=== PATIENT | male | born 1960 | race Caucasian/White ===

== ENCOUNTER → 2017-11-30 15:40 | Outpatient (POV) | payer BC, SELFPAY ==
[2017-11-30 15:47] VITALS: BP 166/94; PULSE 91; RESP 16; O2SAT 96; BMI 27.1
--- NOTE | 2017-11-30 15:57 | HMH.PAINSOAP ---
[facility] Pain Management SOAP Note Subjective:: Patient is a pleasant 57-year-old male who presents today to follow-up after left SI joint injection. Patient states that he had excellent relief up to 90% for a month. Though patient may want to do another injection he finds it cost prohibitive at this time. Patient has been taking tramadol 50 mg 1 p.o. 3 times daily as needed and gabapentin 300 mg 1 p.o. twice daily from his primary care physician. He states that this medication is done really well for him and would like to continue with it. 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 Patient states he does well up until about 8 hour arun and then he becomes very sore afterwards. Patient finds some relief with standing after long periods of sitting. Patient rates his pain a 7 out of 10 today. Patient and I discussed continuing his gabapentin at 300 mg but increasing it to 3 times a day. We also discussed his tramadol 50 mg and decreasing it to twice daily. Patient is satisfied with this. More [id number] reviewed and appropriate. Objective:: Physical Exam General: Alert and oriented x3, no acute distress, pleasant and cooperative, [on room air] Lungs: Resps E/U, Symmetrical chest expansion Musculoskeletal: Flexion and extension of lumbar spine somewhat guarded secondary to pain, deep tendon reflexes normal, strength in upper and lower extremities [5/5], right antalgic gait noted, positive Russ's test on left side. Neurological: speech clear, resident programs assistant equal, no gross sensory deficits Assessment:: Left sided sacroiliitis Plan:: We will give him prescriptions for tramadol 50 mg 1 p.o. twice daily and for gabapentin 300 mg [address] Dickinson reviewed this and agrees. Patient's More reviewed and appropriate. I will see the patient back in 2 months to determine if this regimen is helping him. Patient was instructed to call the office if he needs us before that. Patient has been prescribed a controlled substance after being counseled on the medication, medication safety, and possible side effects. MORE report has been obtained and reviewed prior to prescription and found to be appropriate. Opioid contract was reviewed and signed by the patient, and that they have agreed to all of the terms set forth by our compliance program. This note was dictated using voice recognition software and may include errors or omissions
--- NOTE | 2017-11-30 16:00 | P.CONS_ITS ---
[facility] Pain Management SOAP Note Subjective:: Patient is a pleasant 57-year-old male who presents today to follow-up after left SI joint injection. Patient states that he had excellent relief up to 90% for a month. Though patient may want to do another injection he finds it cost prohibitive at this time. Patient has been taking tramadol 50 mg 1 p.o. 3 times daily as needed and gabapentin 300 mg 1 p.o. twice daily from his primary care physician. He states that this medication is done really well for him and would like to continue with it. 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 Patient states he does well up until about 8 hour arun and then he becomes very sore afterwards. Patient finds some relief with standing after long periods of sitting. Patient rates his pain a 7 out of 10 today. Patient and I discussed continuing his gabapentin at 300 mg but increasing it to 3 times a day. We also discussed his tramadol 50 mg and decreasing it to twice daily. Patient is satisfied with this. More [id number] reviewed and appropriate. Objective:: Physical Exam General: Alert and oriented x3, no acute distress, pleasant and cooperative, [ on room air] Lungs: Resps E/U, Symmetrical chest expansion Musculoskeletal: Flexion and extension of lumbar spine somewhat guarded secondary to pain, deep tendon reflexes normal, strength in upper and lower extremities [5/5], right antalgic gait noted, positive Russ's test on left side. Neurological: speech clear, pediatric hospitalist equal, no gross sensory deficits Assessment:: Left sided sacroiliitis Plan:: We will give him prescriptions for tramadol 50 mg 1 p.o. twice daily and for gabapentin 300 mg [address] Dickinson reviewed this and agrees. Patient's More reviewed and appropriate. I will see the patient back in 2 months to determine if this regimen is helping him. Patient was instructed to call the office if he needs us before that. Patient has been prescribed a controlled substance after being counseled on the medication, medication safety, and possible side effects. MORE report has been obtained and reviewed prior to prescription and found to be appropriate. Opioid contract was reviewed and signed by the patient, and that they have agreed to all of the terms set forth by our compliance program. This note was dictated using voice recognition software and may include errors or omissions
== END ==
PROVIDERS: Family Provider Family Medicine; PCP Family Medicine; Visit Provider Clinical Nurse Specialist Family Health
DX: M54.16 Radiculopathy, lumbar region (principal)
CPT/HCPCS: 99212

== ENCOUNTER → 2018-02-01 14:42 | Outpatient (POV) | payer BC, SELFPAY ==
[2018-02-01 15:32] VITALS: BP 170/90; PULSE 93; BMI 34.9
--- NOTE | 2018-02-01 15:43 | HMH.PAINSOAP ---
[facility] Pain Management SOAP Note Subjective:: Patient is a pleasant 57-year-old white male who presents today for follow-up for medication refills. Patient is currently on the medication regimen of tramadol 50 mg 1 p.o. twice daily and gabapentin milligrams 1 p.o. 3 times a day. Patient states he is doing excellent. Patient states he has pain is a 0 out of 10 today. 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 Patient is very happy with his current regimen. Patient has had left SI joint injections in the past with some relief however this seems to take care of all of his pain. Patient's MORE #[id number] reviewed and appropriate. We will refill the patient today. ROS General: no recent weight change, no fever, no sleep disturbances Respiratory: no cough, no shortness of air, no recurring pulmonary infections Cardiovascular/Peripheral Vascular: No chest pain, No palpitations, no edema, no shortness of breath. Gastrointestinal: no incontinence, normal bowel movements reported Genitourinary: no incontinence Musculoskeletal: Left SI joint pain Psychiatric: normal mood/ affect Neurological: [denies weakness in extremities], [denies balance issues] Objective:: Physical Exam General: Alert and oriented x3, no acute distress, pleasant and cooperative, [on room air] Lungs: Resps E/U, Symmetrical chest expansion, Eyes: PERRL Musculoskeletal: Flexion and extension of lumbar spine somewhat guarded secondary to pain, deep tendon reflexes normal, strength in upper and lower extremities [5/5], slightly antalgic gait noted Neurological: speech clear, senior software test engineer equal, no gross sensory deficits Assessment:: Sacroiliitis of the left side Plan:: We will continue with tramadol 50 mg 1 p.o. twice daily and gabapentin 300 mg 1 p.o. q. 3 times daily given the efficacy of this regimen. Patient is not in need of refills at this time. Patient's MORE is appropriate. Dr. Dickinson is reviewed and agrees with this plan of care we will continue to see the patient on a three-month basis. Patient was instructed to call the office if he needs us before that This note was dictated using voice recognition software and may contain errors or omissions
--- NOTE | 2018-02-01 15:47 | P.CONS_ITS ---
[facility] Pain Management SOAP Note Subjective:: Patient is a pleasant 57-year-old white male who presents today for follow-up for medication refills. Patient is currently on the medication regimen of tramadol 50 mg 1 p.o. twice daily and gabapentin milligrams 1 p.o. 3 times a day. Patient states he is doing excellent. Patient states he has pain is a 0 out of 10 today. 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 Patient is very happy with his current regimen. Patient has had left SI joint injections in the past with some relief however this seems to take care of all of his pain. Patient's MORE #[id number] reviewed and appropriate. We will refill the patient today. ROS General: no recent weight change, no fever, no sleep disturbances Respiratory: no cough, no shortness of air, no recurring pulmonary infections Cardiovascular/Peripheral Vascular: No chest pain, No palpitations, no edema, no shortness of breath. Gastrointestinal: no incontinence, normal bowel movements reported Genitourinary: no incontinence Musculoskeletal: Left SI joint pain Psychiatric: normal mood/ affect Neurological: [denies weakness in extremities], [denies balance issues] Objective:: Physical Exam General: Alert and oriented x3, no acute distress, pleasant and cooperative, [ on room air] Lungs: Resps E/U, Symmetrical chest expansion, Eyes: PERRL Musculoskeletal: Flexion and extension of lumbar spine somewhat guarded secondary to pain, deep tendon reflexes normal, strength in upper and lower extremities [5/5], slightly antalgic gait noted Neurological: speech clear, assignment desk editor equal, no gross sensory deficits Assessment:: Sacroiliitis of the left side Plan:: We will continue with tramadol 50 mg 1 p.o. twice daily and gabapentin 300 mg 1 p.o. q. 3 times daily given the efficacy of this regimen. Patient is not in need of refills at this time. Patient's MORE is appropriate. Dr. Dickinson is reviewed and agrees with this plan of care we will continue to see the patient on a three-month basis. Patient was instructed to call the office if he needs us before that This note was dictated using voice recognition software and may contain errors or omissions
== END ==
PROVIDERS: Family Provider Family Medicine; PCP Family Medicine; Visit Provider Clinical Nurse Specialist Family Health
DX: M46.1 Sacroiliitis, not elsewhere classified (principal)
CPT/HCPCS: 99212

== ENCOUNTER → 2018-04-05 12:47 | Outpatient (POV) | payer BC, SELFPAY ==
[2018-04-05 13:14] VITALS: BP 162/87; PULSE 88; RESP 18; O2SAT 99; BMI 33.1
--- NOTE | 2018-04-05 13:22 | HMH.PAINSOAP ---
[facility] Pain Management SOAP Note Subjective:: Patient is a pleasant 57-year-old white male who presents today for follow-up for medication refills. Patient is currently on a medication regimen of tramadol 50 mg 1 p.o. twice daily and gabapentin 300 mg 1 p.o. 3 times daily. Patient is being treated for pain secondary to sacroiliitis. Patient states he is doing well and has no side effects. Patient is currently still working full-time. Patient's MORE #[id number] reviewed and appropriate. Patient is not in need of refills today. ROS General: no recent weight change, no fever, no sleep disturbances Respiratory: no cough, no shortness of air, no recurring pulmonary infections Cardiovascular/Peripheral Vascular: No chest pain, No palpitations, no edema, no shortness of breath. Gastrointestinal: no incontinence, normal bowel movements reported Genitourinary: no incontinence Musculoskeletal: SI joint pain Psychiatric: normal mood/ affect Neurological: [denies weakness in extremities], [denies balance issues] Objective:: Physical Exam General: Alert and oriented x3, no acute distress, pleasant and cooperative, [on room air] Lungs: Resps E/U, Symmetrical chest expansion, Eyes: PERRL Musculoskeletal: Flexion and extension of the lumbar spine somewhat guarded secondary to pain, deep tendon reflexes normal, strength in upper and lower extremities [5/5], slightly antalgic gait noted Neurological: speech clear, claims clerk equal, no gross sensory deficits Assessment:: Sacroiliitis Plan:: We will refill this patient when he is due for refills. Patient is going to continue his current regimen. I will follow-up with him in 3 months. Patient's been instructed to call the office if he has any issues prior to his next appointment. This note was dictated using voice recognition software and may contain errors or omissions
--- NOTE | 2018-04-05 13:25 | P.CONS_ITS ---
[facility] Pain Management SOAP Note Subjective:: Patient is a pleasant 57-year-old white male who presents today for follow-up for medication refills. Patient is currently on a medication regimen of tramadol 50 mg 1 p.o. twice daily and gabapentin 300 mg 1 p.o. 3 times daily. Patient is being treated for pain secondary to sacroiliitis. Patient states he is doing well and has no side effects. Patient is currently still working full- time. Patient's MORE #[id number] reviewed and appropriate. Patient is not in need of refills today. ROS General: no recent weight change, no fever, no sleep disturbances Respiratory: no cough, no shortness of air, no recurring pulmonary infections Cardiovascular/Peripheral Vascular: No chest pain, No palpitations, no edema, no shortness of breath. Gastrointestinal: no incontinence, normal bowel movements reported Genitourinary: no incontinence Musculoskeletal: SI joint pain Psychiatric: normal mood/ affect Neurological: [denies weakness in extremities], [denies balance issues] Objective:: Physical Exam General: Alert and oriented x3, no acute distress, pleasant and cooperative, [ on room air] Lungs: Resps E/U, Symmetrical chest expansion, Eyes: PERRL Musculoskeletal: Flexion and extension of the lumbar spine somewhat guarded secondary to pain, deep tendon reflexes normal, strength in upper and lower extremities [5/5], slightly antalgic gait noted Neurological: speech clear, breast surgeon equal, no gross sensory deficits Assessment:: Sacroiliitis Plan:: We will refill this patient when he is due for refills. Patient is going to continue his current regimen. I will follow-up with him in 3 months. Patient' s been instructed to call the office if he has any issues prior to his next appointment. This note was dictated using voice recognition software and may contain errors or omissions
== END ==
PROVIDERS: Family Provider Family Medicine; PCP Family Medicine; Visit Provider Clinical Nurse Specialist Family Health
DX: M46.1 Sacroiliitis, not elsewhere classified (principal)
CPT/HCPCS: 99212

== ENCOUNTER → 2018-04-28 10:03 | Outpatient (CLI) | payer BC, SELFPAY ==
--- NOTE | 2018-04-28 10:07 | CT_ITS ---
CT head/brain wo con HISTORY: Headache, prior injury ORDERING PHYSICIAN: Adrian Cornell MD PATIENT AGE: 57 years COMPARISON: None TECHNIQUE: Axial images obtained without contrast. Brain and bone windows reviewed. All CT scans at the facility use one or more dose reduction, viz: automated exposure control; ma/kV adjustment per patient size (including targeted exams where dose is matched to indication; i.e. head); or iterative reconstruction technique. FINDINGS: No midline shift, mass effect, intracranial hemorrhage, hydrocephalus, or extra-axial fluid collection is evident. The calvarium has an unremarkable appearance. No mastoid effusion. No sinus air-fluid levels.. IMPRESSION: Negative CT head without contrast. No acute finding
--- NOTE | 2018-04-28 10:07 | CT_ITS ---
CT CERVICAL SPINE WITHOUT CONTRAST CT RECONSTRUCTIONS HISTORY:Neck pain following injury ORDERING PHYSICIAN: Adrian Cornell MD PATIENT AGE: 57 years COMPARISON: None Technique: All CT scans at the facility use one or more dose reduction, viz: automated exposure control; ma/kV adjustment per patient size (including targeted exams where dose is matched to indication; i.e. head); or iterative reconstruction technique PROCEDURE: Axial spiral CT scanning performed of the cervical spine beginning at the base of the skull and continuing to the upper T-spine. 3-D multiplanar reconstruction with 3-D manipulation of volumetric data set in image rendering was completed by the radiologist and/or technologist with the supervision of the radiologist on independent workstation. FINDINGS: There is normal alignment. No fracture or dislocation is evident. There is multilevel cervical spondylosis with degenerative disc disease along facet and uncovertebral hypertrophy. C2-C3: Minimal central disc protrusion. C3-C4: Mild degenerative disc disease with mild right-sided foraminal narrowing from facet and uncovertebral hypertrophy. C4-C5: Severe right-sided foraminal narrowing from uncovertebral and facet hypertrophy. Moderate to severe hypertrophy of the facet at this region on the right. C5-C6: Degenerative disc disease with bulging disc and posterior osteophytes slightly eccentric toward the right with mild narrowing of the canal along with moderate bilateral foraminal narrowing from uncovertebral hypertrophy and facet hypertrophy on the right. C6-C7: Mild degenerative disc disease. C7-T1: Unremarkable Lung apices are clear. No prevertebral soft tissue swelling. IMPRESSION: 1. No acute fracture 2. Multilevel cervical spondylosis with degenerative disc disease and facet and uncovertebral hypertrophy with foraminal narrowing as detailed above. Please see above for detailed description. Borderline canal stenosis at C5-C6
== END ==
PROVIDERS: Family Provider Family Medicine; PCP Family Medicine; Visit Provider Family Medicine
DX: S06.0X0A Concussion without loss of consciousness, initial encounter (principal); M54.2 Cervicalgia
CPT/HCPCS: 70450; 72125

== ENCOUNTER → 2018-07-05 15:11 | Outpatient (POV) | payer BC, SELFPAY ==
[2018-07-05 15:23] VITALS: BP 133/80; PULSE 97; RESP 18; O2SAT 97; BMI 30.7
--- NOTE | 2018-07-05 15:48 | HMH.PAINSOAP ---
[facility] Pain Management SOAP Note Subjective:: Patient is a pleasant 58-year-old white male who presents today for follow-up. Patient is doing well on his current medication regimen of tramadol 50 mg 1 p.o. twice daily and gabapentin 300 mg 1 p.o. 3 times daily. He is being treated for pain secondary to sacroiliitis. Patient is working full-time. Patient states that when he works a 12 hour shift he does feel like he could benefit from 1 more tramadol and. I believe that this is reasonable. Patient's MORE #[id number] reviewed and appropriate. Patient denies any side effects to his medication. ROS General: no recent weight change, no fever, no sleep disturbances Respiratory: no cough, no shortness of air, no recurring pulmonary infections Cardiovascular/Peripheral Vascular: No chest pain, No palpitations, no edema, no shortness of breath. Gastrointestinal: no incontinence, normal bowel movements reported Genitourinary: no incontinence Musculoskeletal: Back pain, SI joint pain Psychiatric: normal mood/ affect Neurological: [denies weakness in extremities], [denies balance issues] Objective:: Physical Exam General: Alert and oriented x3, no acute distress, pleasant and cooperative, [on room air] Lungs: Resps E/U, Symmetrical chest expansion, Eyes: PERRL Musculoskeletal: Flexion and extension of lumbar spine somewhat guarded secondary to pain, deep tendon reflexes normal, strength in upper and lower extremities [5/5], slightly antalgic gait noted Neurological: speech clear, water resource project manager equal, no gross sensory deficits Assessment:: Sacroiliitis Plan:: We will refill the patient's gabapentin 300 mg 1 tab p.o. 3 times daily and increase his tramadol to 50 mg 1 tab p.o. 3 times daily. 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 We will see the patient back in 3 months. Patient has been instructed to call the office if he has any issues prior to his next appointment. Dr. Dickinson has reviewed this chart and agrees with this plan of care. This note was dictated using voice recognition software and may contain errors or omissions
--- NOTE | 2018-07-05 15:52 | P.CONS_ITS ---
[facility] Pain Management SOAP Note Subjective:: Patient is a pleasant 58-year-old white male who presents today for follow-up. Patient is doing well on his current medication regimen of tramadol 50 mg 1 p.o. twice daily and gabapentin 300 mg 1 p.o. 3 times daily. He is being treated for pain secondary to sacroiliitis. Patient is working full-time. Patient states that when he works a 12 hour shift he does feel like he could benefit from 1 more tramadol and. I believe that this is reasonable. Patient's MORE #[id number] reviewed and appropriate. Patient denies any side effects to his medication. ROS General: no recent weight change, no fever, no sleep disturbances Respiratory: no cough, no shortness of air, no recurring pulmonary infections Cardiovascular/Peripheral Vascular: No chest pain, No palpitations, no edema, no shortness of breath. Gastrointestinal: no incontinence, normal bowel movements reported Genitourinary: no incontinence Musculoskeletal: Back pain, SI joint pain Psychiatric: normal mood/ affect Neurological: [denies weakness in extremities], [denies balance issues] Objective:: Physical Exam General: Alert and oriented x3, no acute distress, pleasant and cooperative, [on room air] Lungs: Resps E/U, Symmetrical chest expansion, Eyes: PERRL Musculoskeletal: Flexion and extension of lumbar spine somewhat guarded secondary to pain, deep tendon reflexes normal, strength in upper and lower extremities [5/5], slightly antalgic gait noted Neurological: speech clear, multiple knife edge trimmer operator equal, no gross sensory deficits Assessment:: Sacroiliitis Plan:: We will refill the patient's gabapentin 300 mg 1 tab p.o. 3 times daily and increase his tramadol to 50 mg 1 tab p.o. 3 times daily. 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 We will see the patient back in 3 months. Patient has been instructed to call the office if he has any issues prior to his next appointment. Dr. Dickinson has reviewed this chart and agrees with this plan of care. This note was dictated using voice recognition software and may contain errors or omissions
--- NOTE | 2018-10-14 11:20 | PC.PHONENOTE ---
CALLED IN RX FOR GABAPENTIN 300MG TID WITH 2 REFILLS TO [facility]
== END ==
PROVIDERS: Family Provider Family Medicine; PCP Family Medicine; Visit Provider Clinical Nurse Specialist Family Health
DX: M46.1 Sacroiliitis, not elsewhere classified (principal)
CPT/HCPCS: 99213

== ENCOUNTER → 2018-10-25 10:41 | Outpatient (POV) | payer BC, SELFPAY ==
[2018-10-25 10:56] VITALS: BP 124/93; PULSE 92; RESP 18; O2SAT 98; BMI 32.6
--- NOTE | 2018-10-25 11:17 | P.CONS_ITS ---
[facility] Pain Management SOAP Note Subjective:: Patient is a pleasant 58-year-old white male who presents today for follow-up. Patient is doing well on tramadol 50 mg 1 p.o. 3 times daily and gabapentin 300 mg 1 p.o. 3 times daily however he has not been able to get his full medication due to insurance and pharmacy issues. Patient currently rates his pain a 2 out of 10. He states his worst pain is about a 6 out of 10 when he is working a 12- hour shift. Coleman reviewed and appropriate. Patient denies side effects to his medication. ROS General: no recent weight change, no fever, no sleep disturbances Respiratory: no cough, no shortness of air, no recurring pulmonary infections Cardiovascular/Peripheral Vascular: No chest pain, No palpitations, no edema, no shortness of breath. Gastrointestinal: no incontinence, normal bowel movements reported Genitourinary: no incontinence Musculoskeletal: Back pain, SI joint pain Psychiatric: normal mood/ affect Neurological: [denies weakness in extremities], [denies balance issues] Objective:: Physical Exam General: Alert and oriented x3, no acute distress, pleasant and cooperative, [on room air] Lungs: Resps E/U, Symmetrical chest expansion, Eyes: PERRL Musculoskeletal: Flexion and extension of lumbar spine somewhat guarded secondary to pain, deep tendon reflexes normal, strength in upper and lower extremities [5/5], antalgic gait noted Neurological: speech clear, title insurance examiner equal, no gross sensory deficits Assessment:: Sacroiliitis Plan:: We will continues tramadol 50 mg 1 tab p.o. 3 times daily and gabapentin 300 mg 1 tab p.o. 3 times daily we will give him 2 months worth of medication and see him back in 2 months. Patient is going to not take medication during the weekends and take up to 4 tramadol a day on his 12-hour shift days. Dr. Dickinson has reviewed his chart and agrees with this plan of care This note was dictated using voice recognition software and may contain errors or omissions
== END ==
PROVIDERS: PCP Family Medicine; Visit Provider Clinical Nurse Specialist Family Health
DX: M46.1 Sacroiliitis, not elsewhere classified (principal)
CPT/HCPCS: 99213

== ENCOUNTER → 2018-12-20 15:42 | Outpatient (POV) | payer BC, SELFPAY ==
[2018-12-20 15:30] VITALS: BP 152/92; PULSE 101; RESP 18; O2SAT 98; BMI 34.2
--- NOTE | 2018-12-21 08:40 | P.CONS_ITS ---
[facility] Pain Management SOAP Note Subjective:: Patient is a pleasant 58-year-old white male who presents today for follow-up. Patient is currently doing well on tramadol 50 mg 1 p.o. 3 times daily and gabapentin 300 mg 1 p.o. 3 times daily. Patient has been able to get his full amount of medication and is doing much better. He rates his pain a 3 out of 10. Patient states his worst pain is on days that he works 12-hour shifts on his feet. Patient denies side effects to his medication and states it helps up to 80%. MORE reviewed and appropriate. ROS General: no recent weight change, no fever, no sleep disturbances Respiratory: no cough, no shortness of air, no recurring pulmonary infections Cardiovascular/Peripheral Vascular: No chest pain, No palpitations, no edema, no shortness of breath. Gastrointestinal: no incontinence, normal bowel movements reported Genitourinary: no incontinence Musculoskeletal: Back pain, SI joint pain Psychiatric: normal mood/ affect Neurological: [denies weakness in extremities], [denies balance issues] Objective:: Physical Exam General: Alert and oriented x3, no acute distress, pleasant and cooperative, [on room air] Lungs: Resps E/U, Symmetrical chest expansion, Eyes: PERRL Musculoskeletal: Flexion and extension of lumbar spine somewhat guarded seco ndary to pain, deep tendon reflexes normal, strength in upper and lower extremities [5/5], slightly antalgic gait noted Neurological: speech clear, hospital liaison equal, no gross sensory deficits Assessment:: Sacroiliitis, back pain Plan:: We will continue the patient's tramadol 50 mg 1 tab p.o. 3 times daily and gabapentin 300 mg 1 tab p.o. 3 times daily we will give him 2 months worth of medication and see him back in 2 months. I will follow-up with the patient at this time. He has been instructed to call the office if he has any issues prior to his next appointment. Dr. Dickinson has reviewed this note and agrees with this plan of care. This note was dictated using voice recognition software and may contain errors or omissions
== END ==
PROVIDERS: PCP Family Medicine; Visit Provider Clinical Nurse Specialist Family Health
DX: M46.1 Sacroiliitis, not elsewhere classified (principal); M54.9 Dorsalgia, unspecified
CPT/HCPCS: 99213

== ENCOUNTER → 2019-04-11 15:10 | Outpatient (POV) | payer BC, SELFPAY ==
--- NOTE | 2019-04-11 15:42 | P.CONS_ITS ---
[facility] Pain Management SOAP Note Subjective:: Patient is a pleasant 58-year-old white male who presents today for medication refills he is currently on tramadol 50 mg 1 p.o. 3 times daily and gabapentin 300 mg 1 p.o. 3 times daily. He has been doing all right with this. He rates his pain a 4 out of 10. He does work 12-hour shifts on his feet he denies side effects the medication. States it helps up to 80%. [facility] #[id number] reviewed and appropriate. ROS General: no recent weight change, no fever, no sleep disturbances Respiratory: no cough, no shortness of air, no recurring pulmonary infections Cardiovascular/Peripheral Vascular: No chest pain, No palpitations, no edema, no shortness of breath. Gastrointestinal: no incontinence, normal bowel movements reported Genitourinary: no incontinence Musculoskeletal: Back pain, SI joint pain Psychiatric: normal mood/ affect Neurological: [denies weakness in extremities], [denies balance issues] Objective:: Physical Exam General: Alert and oriented x3, no acute distress, pleasant and cooperative, [on room air] Lungs: Resps E/U, Symmetrical chest expansion, Eyes: PERRL Musculoskeletal: Flexion and extension of lumbar spine somewhat guarded secondary to pain, deep tendon reflexes normal, strength in upper and lower extremities [5/5], antalgic gait noted Neurological: speech clear, bread stacker equal, no gross sensory deficits Assessment:: Degenerative disc disease, back pain, sacroiliitis Plan:: We will increase the patient's tramadol 50 mg 1 p.o. 4 times daily and gabapentin 300 mg 1 tab p.o. 4 times daily. Patient is having difficulty with the medication lasting during his long work shifts. I will follow-up with the patient 3 months to reassess his symptoms at that time. He is instructed to call the office if he has any issues prior to his next appointment. Dr. Dickinson has reviewed this note and agrees with this plan of care. This note was dictated using voice recognition software and may contain errors or omissions
[2019-04-11 15:48] VITALS: BP 147/82; PULSE 97; RESP 18; O2SAT 99; BMI 34.2
--- NOTE | 2019-07-05 15:12 | PC.NURSE ---
GABAPENTIN 300MG PO QID AND TRAMADOL 50MG QID WITH 2 REFILLS FAXED TO CLINIC PHARMACY PER PROVIDER ORDER
== END ==
PROVIDERS: PCP Family Medicine; Visit Provider Clinical Nurse Specialist Family Health
DX: M51.36 Other intervertebral disc degeneration, lumbar region (principal); M46.1 Sacroiliitis, not elsewhere classified
CPT/HCPCS: 99212

== ENCOUNTER → 2019-05-17 08:11 | Outpatient (CLI) | payer BC, SELFPAY ==
--- NOTE | 2019-05-17 08:20 | CT_ITS ---
CT lung screening EXAM: CT LUNG LOW DOSE WO CONTRAST HISTORY: 45 pack-year smoking history, asymptomatic for lung cancer ITS.REASON: CURRENT TOBACCO USE ORDERING PHYSICIAN: Piero Arteaga MD PATIENT AGE: 58 years COMPARISON: None TECHNIQUE: The exam was performed on a GE Light Speed [address] scanner using 2.90 mGy CTDI. A low dose helical CT CHEST was performed on a multi-detector scanner. All CT scans at the facility use one or more dose reduction, viz: automated exposure control, ma/kV adjustment per patient size (including targeted exams where dose is matched to indication, i.e. head), or iterative reconstruction technique. The LDCT was performed in a facility that meets the criteria for the screening program. Data regarding this exam was submitted to ACR which is an approved registry. The order for this exam indicates that it came as a result of a lung cancer screening counseling shard decision-making visit that included all the elements required of such a visit including smoking cessation. The radiologist interpreting this exam meets the CMS criteria for the LDCT lung cancer screening program. The exam is reported using the Lung-RADS classification scale and reported to the ACR registry. NOTE: This study was performed for the specific purposes of lung cancer screening and is not an alternative to diagnostic chest CT. RADIATION DOSE: CTDI vol(CT dose Index-volume) = 2.90mG DLP (Dose Length Product) = 104.46 mGcm FINDINGS: COPD with mild paraseptal emphysematous change 6 mm noncalcified nodule right lower lobe centrally image #45 There are 3 nodules within the right middle lobe measuring 11 mm, 8 mm, and 5 mm. These are noncalcified and well circumscribed. Subpleural 4 mm nodule left upper lobe. Fibrotic changes present in the lingula. 7 mm noncalcified nodule superior segment left lower lobe image #36. No effusions. IMPRESSION: 1. Lung RADS Category: 4 a, suspicious for multiple noncalcified pulmonary nodules are present the largest at 11 mm. These could represent noncalcified granulomas or metastatic foci. Does the patient had a history of primary carcinoma? Suggest PET/CT for short-term CT follow-up in 3 months without and with contrast 2. Other findings: COPD with paraseptal emphysematous change RECOMMENDATIONS: PET/CT or short-term CT follow-up without and with contrast in 3 months. Also if the patient has old CTs at another institution it would be suggested that they be submitted for comparison
== END ==
PROVIDERS: PCP Family Medicine; Visit Provider Family Medicine
DX: Z12.2 Encounter for screening for malignant neoplasm of respiratory organs (principal); Z87.891 Personal history of nicotine dependence

== ENCOUNTER → 2019-07-18 15:44 | Outpatient (POV) | payer BC, SELFPAY ==
--- NOTE | 2019-07-19 08:11 | HMH.PAINSOAP ---
[facility] Pain Management SOAP Note Subjective:: Patient is a very pleasant 59-year-old white male who presents today for medication refills. And to discuss avert a flex procedure. He currently rates his pain a 4 out of 10. He is on tramadol 50 mg 1 p.o. 4 times daily and gabapentin 300 mg 1 tab p.o. 4 times daily. Patient also needs a refill on his Flexeril 10 mg 1 tab p.o. twice daily. Denies side effects his medication. However it is not as effective as it used to be. Patient is continuing to work. Patient does have central canal stenosis and foraminal narrowing shown on his latest MRI at the L3-L4 L4-L5 L5-S1 level. Patient has tried and failed physical therapy along with anti-inflammatories. For over 6 months has had injections in the past with no long-term relief. Most the patient's pain is when he is standing and walking it is relieved by sitting and leaning forward. Patient is only able to walk for a few minutes prior to having to sit down. ROS General: no recent weight change, no fever, no sleep disturbances Respiratory: no cough, no shortness of air, no recurring pulmonary infections Cardiovascular/Peripheral Vascular: No chest pain, No palpitations, no edema, no shortness of breath. Gastrointestinal: no incontinence, normal bowel movements reported Genitourinary: no incontinence Musculoskeletal: Back pain leg pain when walking and standing Psychiatric: normal mood/ affect Neurological: Weakness bilateral lower extremities while walking standing, [denies balance issues] Objective:: Physical Exam General: Alert and oriented x3, no acute distress, pleasant and cooperative, [on room air] Lungs: Resps E/U, Symmetrical chest expansion, Eyes: PERRL Musculoskeletal: Flexion and extension of lumbar spine somewhat guarded secondary to pain, deep tendon reflexes normal, strength in upper and lower extremities [5/5], slightly antalgic gait noted Neurological: speech clear, ed case manager equal, no gross sensory deficits Assessment:: Degenerative disc disease lumbar spine with lumbar spinal stenosis and neurogenic claudication Plan:: We will send the patient for flexion and extension x-rays to determine if he is a good candidate for the for to flex procedure we will move forward with this if he is. He is not on any anticoagulation therapy. We discussed restrictions along with risks and benefits of the procedure. I will follow-up with the patient after this reassess his symptoms at that time he is been instructed to call the office if he has any issues prior to his next appointment. Dr. Dickinson has reviewed this note and agrees with this plan of care. This note was dictated using voice recognition software and may contain errors or omissions [facility] History I have reviewed the patient's past medical history: Yes Medical History: Denies:: Diabetes Mellitus Type 1, Diabetes Mellitus Type 2, Internal Pacemaker, Lung Disease, Seizures *Have you ever received a pneumonia vaccine?: No *Have you received a flu vaccine this season?: No Other Surgeries: No: Pacemaker - *Social History *Occupational Status:: other *Travel in the last 8 weeks: None Family Hx:: Non-contributory
--- NOTE | 2019-07-19 08:14 | P.CONS_ITS ---
[facility] Pain Management SOAP Note Subjective:: Patient is a very pleasant 59-year-old white male who presents today for medication refills. And to discuss avert a flex procedure. He currently rates his pain a 4 out of 10. He is on tramadol 50 mg 1 p.o. 4 times daily and gabapentin 300 mg 1 tab p.o. 4 times daily. Patient also needs a refill on his Flexeril 10 mg 1 tab p.o. twice daily. Denies side effects his medication. However it is not as effective as it used to be. Patient is continuing to work. Patient does have central canal stenosis and foraminal narrowing shown on his latest MRI at the L3-L4 L4-L5 L5-S1 level. Patient has tried and failed physical therapy along with anti-inflammatories. For over 6 months has had injections in the past with no long-term relief. Most the patient's pain is when he is standing and walking it is relieved by sitting and leaning forward. Patient is only able to walk for a few minutes prior to having to sit down. ROS General: no recent weight change, no fever, no sleep disturbances Respiratory: no cough, no shortness of air, no recurring pulmonary infections Cardiovascular/Peripheral Vascular: No chest pain, No palpitations, no edema, no shortness of breath. Gastrointestinal: no incontinence, normal bowel movements reported Genitourinary: no incontinence Musculoskeletal: Back pain leg pain when walking and standing Psychiatric: normal mood/ affect Neurological: Weakness bilateral lower extremities while walking standing, [denies balance issues] Objective:: Physical Exam General: Alert and oriented x3, no acute distress, pleasant and cooperative, [on room air] Lungs: Resps E/U, Symmetrical chest expansion, Eyes: PERRL Musculoskeletal: Flexion and extension of lumbar spine somewhat guarded secondary to pain, deep tendon reflexes normal, strength in upper and lower extremities [5/5], slightly antalgic gait noted Neurological: speech clear, forge tender equal, no gross sensory deficits Assessment:: Degenerative disc disease lumbar spine with lumbar spinal stenosis and neurogenic claudication Plan:: We will send the patient for flexion and extension x-rays to determine if he is a good candidate for the for to flex procedure we will move forward with this if he is. He is not on any anticoagulation therapy. We discussed restrictions along with risks and benefits of the procedure. I will follow-up with the patient after this reassess his symptoms at that time he is been instructed to call the office if he has any issues prior to his next appointment. Dr. Dickinson has reviewed this note and agrees with this plan of care. This note was dictated using voice recognition software and may contain errors or omissions [facility] History I have reviewed the patient's past medical history: Yes Medical History: Denies:: Diabetes Mellitus Type 1, Diabetes Mellitus Type 2, Internal Pacemaker, Lung Disease, Seizures *Have you ever received a pneumonia vaccine?: No *Have you received a flu vaccine this season?: No Other Surgeries: No: Pacemaker - *Social History *Occupational Status:: other *Travel in the last 8 weeks: None Family Hx:: Non-contributory
== END ==
PROVIDERS: PCP Family Medicine; Visit Provider Clinical Nurse Specialist Family Health
DX: M48.062 Spinal stenosis, lumbar region with neurogenic claudication (principal)
CPT/HCPCS: 99212

== ENCOUNTER → 2019-07-23 08:28 | Outpatient (CLI) | payer BC, SELFPAY ==
--- NOTE | 2019-07-23 09:07 | XR_ITS ---
PROCEDURE: XR LUMBAR SPINE BENDING ONLY CLINICAL INDICATION: BACK PAIN Low back pain COMPARISON: LS5 LUMBAR SPINE 5 VIEWS from 07/28/2016 FINDINGS: Flexion and extension views and AP view is performed. Multilevel degenerative disc disease is present from L1-S1. There is approximately 40 percent wedge compression changes of L2 which is not significantly changed. Flexion and extension views show no obvious abnormal subluxation. There is minimal lumbar curvature convex left. IMPRESSION: Multilevel degenerative changes with chronic wedge compression changes of L2 with no abnormal subluxation on flexion or extension Dictated by: Robbie Terrell MD 07/25/2019 05:45 Electronically signed by Robbie Terrell MD in [place] 07/25/2019 05:45
== END ==
PROVIDERS: PCP Family Medicine; Visit Provider Clinical Nurse Specialist Family Health
DX: M54.5 Low back pain (principal)
CPT/HCPCS: 72120

== ENCOUNTER → 2019-08-15 11:21 | Outpatient (POV) | payer BC, SELFPAY ==
[2019-08-15 12:05] VITALS: BP 152/93; PULSE 94; RESP 18; O2SAT 98; BMI 34.9
--- NOTE | 2019-08-15 12:43 | HMH.PAINSOAP ---
[facility] Pain Management SOAP Note Subjective:: Patient is a pleasant 59-year-old white male who presents today for follow-up. Patient insurance denied a vertical flex procedure. He rates his pain a 6 out of 10. He is currently on tramadol gabapentin and Flexeril. Patient does have spinal stenosis with neurogenic claudication. Patient has difficulty with standing for long periods of time. He is failed physical therapy along with anti-inflammatories. Had injections in the past with no relief. Patient's pain is relieved by sitting down and leaning forward. Patient and I discussed surgical consultation. ROS General: no recent weight change, no fever, no sleep disturbances Respiratory: no cough, no shortness of air, no recurring pulmonary infections Cardiovascular/Peripheral Vascular: No chest pain, No palpitations, no edema, no shortness of breath. Gastrointestinal: no new onset incontinence, normal bowel movements reported Genitourinary: no new onset incontinence Musculoskeletal: Back pain, leg pain Psychiatric: normal mood/ affect, Neurological: [denies new onset weakness in extremities], [denies new onset balance issues] Objective:: Physical Exam General: Alert and oriented x3, no acute distress, pleasant and cooperative, [on room air] Lungs: Resps E/U, Symmetrical chest expansion, Eyes: PERRL Musculoskeletal: Flexion and extension of lumbar spine somewhat guarded secondary to pain, deep tendon reflexes normal, strength in upper and lower extremities [5/5], antalgic gait noted Neurological: speech clear, network programmer equal, no gross sensory deficits Assessment:: Degenerative disc disease lumbar spine with lumbar spinal stenosis and neurogenic claudication Plan:: Patient and I discussed a surgical consultation with Dr. Cabrera. He would like to move forward with this. I will follow-up with the patient after this reassess his symptoms at that time is been instructed to call the office if he has any issues. We also discussed switching him to Lyrica 75 mg 1 p.o. twice daily. He would like to move forward with this as well. Dr. Dickinson has reviewed this note and agrees with this plan of care. This note was dictated using voice recognition software and may contain errors or omissions [facility] History I have reviewed the patient's past medical history: Yes Medical History: Denies:: Diabetes Mellitus Type 1, Diabetes Mellitus Type 2, Internal Pacemaker, Lung Disease, Seizures *Have you ever received a pneumonia vaccine?: Yes *Have you received a flu vaccine this season?: Yes Other Surgeries: No: Pacemaker - *Social History *Occupational Status:: other *Travel in the last 8 weeks: None Family Hx:: Non-contributory
== END ==
PROVIDERS: PCP Family Medicine; Visit Provider Clinical Nurse Specialist Family Health
DX: M48.062 Spinal stenosis, lumbar region with neurogenic claudication (principal)
CPT/HCPCS: 99212

== ENCOUNTER → 2019-10-17 08:40 | Outpatient (POV) | payer BC, SELFPAY ==
--- NOTE | 2019-10-17 09:06 | HMH.PAINSOAP ---
[facility] Pain Management SOAP Note Subjective:: Patient is a pleasant 59-year-old white male who presents today for neck pain with radiation into his left arm. Patient says that he had a incident in which he was struck in the face with a drill while at work. Patient says following the incident he developed severe neck pain with radiation into his left arm. He does say that the pain did not present until months later after. Today he rates his pain a 10 out of 10. He says that the pain is causing him to have difficulty with driving as well as working. He says that his pain is worse in his left forearm area. He says that he is unable to sleep or use his left arm due to the severity of the pain. She also says he is unable to turn his head to the left side without developing severe throbbing and stabbing pain. Patient is currently taking gabapentin. He is prescribed 300 mg 1 tablet p.o. 4 times daily. At the recommendation of Dr. Arteaga, however, the patient says he has been taking gabapentin 300 mg 2 tablets 3 times daily. He says he will run out of his medication sooner than anticipated due to the increase in the medication. He is also taking tramadol 50 mg 1 tablet p.o. 4 times daily. He says that naproxen gives him more relief than tramadol. He says he does not take both medications together. He is also taking Flexeril for which he does get relief at night, but is unable to take it through the day due to vision changes with the medication. Patient would like to discuss injective therapies today. He is scheduled for an MRI of his cervical spine this upcoming week. Review of Systems General: No recent weight changes, no fever, no sleep disturbances Respiratory: No cough, no shortness of air, no recurring pulmonary infections Cardiovascular/peripheral vascular: No chest pain, no palpitations, no edema, no shortness of breath Gastrointestinal: No new onset incontinence, normal bowel movements reported Genitourinary: No new onset incontinence Musculoskeletal: Neck pain, left arm pain Psychiatric: Normal mood/affect Neurological: [Denies weakness in extremities], [denies balance issues] Objective:: Physical exam General: Alert and oriented x3, no acute distress, pleasant and cooperative, [on room air] Lungs: Respirations even and unlabored, symmetrical chest expansion Eyes: PERRL Musculoskeletal: Flexion and extension of cervical spine somewhat guarded secondary to pain, deep tendon reflexes normal, strength in upper and lower extremities [5/5], [abnormal gait noted] Neurological: Speech clear, clinical training specialist equal, no gross sensory deficit Assessment:: Neck pain, cervical radiculopathy Plan:: Given the patient's symptoms, I think he would benefit from a cervical epidural steroid injection at C6-C7. He has not had any type of injective therapy. He is not on any anticoagulation therapy. He is continuing with anti-inflammatories and a home stretching program. We will see him back in the clinic following the injection to reassess his symptoms. The patient has been instructed to contact the clinic if he has any concerns before his next appointment. Dr. Dickinson has reviewed this note and agrees with this plan of care. This note was dictated using voice recognition software and make contain errors or omissions. [facility] History I have reviewed the patient's past medical history: Yes Medical History: Denies:: Diabetes Mellitus Type 1, Diabetes Mellitus Type 2, Internal Pacemaker, Lung Disease, Seizures *Have you ever received a pneumonia vaccine?: Yes *Have you received a flu vaccine this season?: Yes Other Surgeries: No: Pacemaker - *Social History *Occupational Status:: other *Travel in the last 8 weeks: None Family Hx:: Non-contributory
[2019-10-17 09:09] VITALS: BP 178/99; PULSE 91; RESP 18; O2SAT 99; BMI 36.5
== END ==
PROVIDERS: PCP Family Medicine; Visit Provider Clinical Nurse Specialist Family Health
DX: M54.2 Cervicalgia (principal); M54.12 Radiculopathy, cervical region
CPT/HCPCS: 99212

== ENCOUNTER → 2019-10-20 15:55 | Outpatient (CLI) | payer BC, SELFPAY ==
--- NOTE | 2019-10-20 15:59 | MR_ITS ---
PROCEDURE: MR CERVICAL SPINE WO CON CLINICAL INDICATION: DISORDER OF NECK, CERVICAL STENOSIS OF SPINE Spinal stenosis, left-sided neck pain, left arm pain numbness and tingling COMPARISON: SPCERVWO CT cervical spine wo con from 04/28/2018 TECHNIQUE: Standard multiplanar multiecho sequences are performed without contrast. 3-D MIP and myelographic images are also rendered and reviewed FINDINGS: There is straightening of the cervical lordosis which may be due to patient positioning or muscle spasm. Multilevel cervical spondylosis is noted as detailed below. C2-C3: Mild bulging disc with narrowing of the canal 10 mm. C3-C4: Mild degenerative disc disease with bulging disc along with facet and uncovertebral hypertrophy with canal stenosis of 10 mm and moderate right foraminal narrowing. Minimal flattening of the cord anteriorly C4-C5: Mild bulging disc along with facet ligamentum hypertrophy with bilateral foraminal narrowing and narrowing of the canal at 10 mm. C5-C6: Degenerate disc disease with bulging disc with facet and uncovertebral hypertrophy with severe bilateral foraminal narrowing along with canal stenosis of 9 mm.. There is minimal flattening of the cord anteriorly. Bilateral lateral recess narrowing. C6-C7: Bulging disc with degenerative disc disease. The sagittal images suggest a left paracentral/foraminal disc protrusion at C6-C7. This however is not confirmed on the axial images. C7-T1: Unremarkable. IMPRESSION: 1. Multilevel cervical spondylosis with bulging disc, degenerative disc disease along with facet ligamentum hypertrophy with multilevel canal stenosis with minimal flattening of the cord, lateral recess and foraminal narrowing. Please see above for detailed description at each level 2. Sagittal images suggest a left foraminal disc protrusion/extrusion at C6-C7. This however is not confirmed on the axial images which is limited due to motion artifact. Dictated by: Robbie Terrell MD 10/21/2019 15:15 Electronically signed by Robbie Terrell MD in [place] 10/21/2019 15:15
== END ==
PROVIDERS: PCP Family Medicine; Visit Provider Family Medicine
DX: M53.82 Other specified dorsopathies, cervical region (principal); M47.22 Other spondylosis with radiculopathy, cervical region; M47.812 Spondylosis without myelopathy or radiculopathy, cervical region; M48.02 Spinal stenosis, cervical region
CPT/HCPCS: 72141; 76376

== ENCOUNTER → 2019-11-14 09:43 | Outpatient (POV) | payer BC, SELFPAY ==
[2019-11-14 10:11] VITALS: BP 168/87; PULSE 102; RESP 18; O2SAT 98; BMI 36.5
--- NOTE | 2019-11-15 08:13 | HMH.PAINSOAP ---
[facility] Pain Management SOAP Note Subjective:: Patient is a very pleasant 59-year-old white male who presents today for follow-up after cervical epidural steroid injection. Patient got no relief from his epidural injection. He rates his pain today an 8 out of 10. Patient's pain symptomology continues to worsen. He has both neck pain and low back pain. Patient does have severe stenosis in his low back and cervical spine. Patient has a recent MRI. Patient and I discussed options in regards to management. I do believe at this time a updated lower back MRI and a consultation with a neurosurgeon for cervical pain would be appropriate. Patient is currently on gabapentin and tramadol and has failed over 6 months of conservative therapies including medications and injections. He is continuing a home stretching program and trying to be as active as possible. ROS General: no recent weight change, no fever, no sleep disturbances Respiratory: no cough, no shortness of air, no recurring pulmonary infections Cardiovascular/Peripheral Vascular: No chest pain, No palpitations, no edema, no shortness of breath. Gastrointestinal: no new onset incontinence, normal bowel movements reported Genitourinary: no new onset incontinence Musculoskeletal: Neck pain, arm pain, back pain, leg pain Psychiatric: normal mood/ affect, Neurological: weakness bilateral lower extremities when walking, [denies new onset balance issues] Objective:: Physical Exam General: Alert and oriented x3, no acute distress, pleasant and cooperative, [on room air] Lungs: Resps E/U, Symmetrical chest expansion, Eyes: PERRL Musculoskeletal: Flexion and extension of cervical and lumbar spine somewhat guarded secondary to pain, deep tendon reflexes normal, strength in upper and lower extremities [5/5], [abnormal gait noted] Neurological: speech clear, 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 Cabrera for consultation in regards to his neck and low back pain. We will order an updated MRI of his lower back to take to the consultation. Patient's been instructed to call the office if he has any issues prior to his next appointment. Dr. Dickinson has reviewed this note and agrees with this plan of care. This note was dictated using voice recognition software and may contain errors or omissions [facility] History I have reviewed the patient's past medical history: Yes Medical History: Denies:: Cancer, Diabetes Mellitus Type 1, Diabetes Mellitus Type 2, Internal Pacemaker, Lung Disease, MRSA, Seizures *Have you ever received a pneumonia vaccine?: Yes *Have you received a flu vaccine this season?: Yes Other Surgeries: No: Pacemaker Amputation: No Fractures: No - *Social History Smoking Status: Former smoker Tobacco Type: cigarettes Alcohol Intake: never *Occupational Status:: other *Travel in the last 8 weeks: None Family Hx:: Non-contributory
== END ==
PROVIDERS: PCP Family Medicine; Visit Provider Clinical Nurse Specialist Family Health
DX: M51.16 Intervertebral disc disorders with radiculopathy, lumbar region (principal); M48.062 Spinal stenosis, lumbar region with neurogenic claudication; M50.10 Cervical disc disorder with radiculopathy, unspecified cervical region
CPT/HCPCS: 99212

== ENCOUNTER → 2019-11-23 15:12 | Outpatient (CLI) | payer BC, SELFPAY ==
--- NOTE | 2019-11-23 15:15 | MR_ITS ---
PROCEDURE: MR LUMBAR SPINE WO CON CLINICAL INDICATION: LOW BACK PAIN Low back pain, left leg pain COMPARISON: XR LUMBAR SPINE BENDING ONLY from 07/23/2019 MR CERVICAL SPINE WO CON from 10/20/2019 TECHNIQUE: Standard multiplanar multiecho sequences are performed without contrast. 3-D MIP and myelographic images are also rendered and reviewed FINDINGS: There is slight reversal of the known role lumbar lordosis. Chronic wedge compression fractures present at L2 with kyphosis. The spinal cord ends at the L1-L2 level. L1-L2: Wedging of L2 with loss of height centrally and anteriorly of approximately 30-40 percent without retropulsion or canal stenosis. L2-L3: Facet ligamentum hypertrophy with mild bilateral lateral recess and foraminal narrowing. L3-L4: There is concentric bulging disc which is more prominent on the left along with moderate facet and ligamentum hypertrophy with moderate right lateral recess and foraminal narrowing and moderate to severe left lateral recess and foraminal narrowing. L4-5: Mild concentric bulging disc along with facet and ligamentum hypertrophy with severe bilateral foraminal narrowing and moderate bilateral lateral recess narrowing. There is transverse narrowing of the canal at this level at 10 mm. L5-S1: Minimal bulging disc along with severe facet hypertrophic change and ligamentum hypertrophy with moderate right and severe left foraminal narrowing with bilateral lateral recess narrowing. No extruded herniated disc is evident. There is subcutaneous edema in the lower lumbar region posteriorly. IMPRESSION: 1. L1-L2: Wedging of L2 with loss of height centrally and anteriorly of approximately 30-40 percent without retropulsion or canal stenosis. 2. L3-L4: There is concentric bulging disc which is more prominent on the left along with moderate facet and ligamentum hypertrophy with moderate right lateral recess and foraminal narrowing and moderate to severe left lateral recess and foraminal narrowing. 3. L4-5: Mild concentric bulging disc along with facet and ligamentum hypertrophy with severe bilateral foraminal narrowing and moderate bilateral lateral recess narrowing. There is transverse narrowing of the canal at this level at 10 mm. 4. L5-S1: Minimal bulging disc along with severe facet hypertrophic change and ligamentum hypertrophy with moderate right and severe left foraminal narrowing with bilateral lateral recess narrowing. 5. No extruded herniated disc evident. Dictated by: Robbie Terrell MD 11/24/2019 11:53 Electronically signed by Robbie Terrell MD in [place] 11/24/2019 11:53
== END ==
PROVIDERS: PCP Family Medicine; Visit Provider Clinical Nurse Specialist Family Health
DX: M54.5 Low back pain (principal)
CPT/HCPCS: 72148; 76376

== ENCOUNTER → 2019-12-12 13:40 | Outpatient (CLI) | payer BC, SELFPAY ==
--- NOTE | 2019-12-12 13:46 | CT_ITS ---
PROCEDURE: CT CHEST WO/W CON CLINCAL INDICATION: LUNG NEOPLASM Follow-up pulmonary nodules COMPARISON: LUNGSCREEN CT lung screening from 05/17/2019 TECHNIQUE: IV Contrast: 75ml Optiray 350 Axial images obtained with sagittal and coronal reformats. All CT scans at the facility use one or more dose reduction, viz: automated exposure control, ma/kV adjustment per patient size (including targeted exams where dose is matched to indication, i.e. head), or iterative reconstruction technique. FINDINGS: HEART AND MEDIASTINAL STRUCTURES: There are few small mediastinal and hilar lymph nodes present. No enlarged nodes are apparent. Normal heart size. No evidence of pericardial effusion. LUNGS AND PLEURAL SPACES: There are few small apical blebs with changes of COPD. There are multiple noncalcified pulmonary nodules once again noted. There is a cluster of nodules in the right lower lobe anteriorly the largest at approximately 10 mm. These are not significantly changed. An additional nodules present in the right middle lobe anteriorly at 9 mm. This nodule was partially obscured by underlying atelectatic change previously. This is probably not significantly changed as well. There are some mild atelectatic changes in the right lung base. There is a stable 4 mm nodule in the left upper lobe anteriorly in a stable 6 mm nodule in the superior segment of the left lower lobe is stable 3 mm nodule left upper lobe laterally. Atelectatic or fibrotic changes are present within the lingula. BONY STRUCTURES: Degenerative changes of the spine. No acute bony findings UPPER ABDOMEN: Unremarkable. ADDITIONAL FINDINGS: No other significant abnormalities. IMPRESSION: There are multiple noncalcified pulmonary nodules. These are stable over 7 months. Has the patient had any other imaging procedures such is a PET CT? The interval stability would favor a benign process such as multiple noncalcified granulomas. Metastatic disease however is not excluded and continued follow-up is recommended. Dictated by: Robbie Terrell MD 12/13/2019 07:27 Electronically signed by Robbie Terrell MD in [place] 12/13/2019 07:27
== END ==
PROVIDERS: PCP Family Medicine; Visit Provider Family Medicine
DX: D38.1 Neoplasm of uncertain behavior of trachea, bronchus and lung (principal)
CPT/HCPCS: 71270; Q9967

== ENCOUNTER → 2020-02-13 13:01 | Outpatient (CLI) | payer BC, SELFPAY ==
--- NOTE | 2020-02-13 13:09 | XR_ITS ---
PROCEDURE: XR KNEE LT 3V CLINICAL INDICATION: LT KNEE PAIN COMPARISON: KNEE3L KNEE-3 VIEWS-LT from 08/21/2014 FINDINGS: There are moderate osteoarthritic changes of the medial compartment with mild osteoarthritis of the lateral compartment and patellofemoral joint. No acute fracture or dislocation. There is an old fracture of the distal femur with a screw present within the mid to distal shaft of the femur. Other findings:None. IMPRESSION: Osteoarthritis Dictated by: Robbie Terrell MD 02/13/2020 13:50 Electronically signed by Robbie Terrell MD in [place] 02/13/2020 13:50
--- NOTE | 2020-02-13 13:09 | XR_ITS ---
PROCEDURE: XR ANKLE LT MIN 3V CLINICAL INDICATION: LT ANKLE PAIN COMPARISON: No exams were available for comparison FINDINGS: There are moderate osteoarthritic changes of the ankle with decrease in the joint space and osteophyte formation at the distal tibia and at the talus. Hypertrophic changes are also present at the medial malleolar region and fibula. No fracture or dislocation. There are mild osteoarthritic changes of the calcaneocuboid joint. IMPRESSION: Osteoarthritic changes of the ankle Dictated by: Robbie Terrell MD 02/13/2020 13:49 Electronically signed by Robbie Terrell MD in [place] 02/13/2020 13:49
== END ==
PROVIDERS: PCP Family Medicine; Visit Provider Nurse Practitioner Family
DX: M25.572 Pain in left ankle and joints of left foot (principal); M25.562 Pain in left knee
CPT/HCPCS: 73562; 73610

== ENCOUNTER → 2020-02-27 09:54 | Outpatient (CLI) | payer BC, SELFPAY ==
--- NOTE | 2020-02-27 10:04 | XR_ITS ---
PROCEDURE: XR KNEE LT 4V CLINICAL INDICATION: left knee pain Left knee pain COMPARISON: KNEE3L KNEE-3 VIEWS-LT from 08/21/2014 XR KNEE LT 3V from 02/13/2020 FINDINGS: There are moderate osteoarthritic changes involving all 3 compartments greatest at the medial compartment with decrease in joint space osteosclerosis and osteophyte formation. There is a small suprapatellar effusion suspected. No acute fracture or dislocation. There is an old fracture of the distal femur with a screw present in the distal femur shaft. Other findings:None. IMPRESSION: Moderate osteoarthritic changes of the left knee not significantly changed Dictated by: Robbie Terrell MD 02/27/2020 11:00 Electronically signed by Robbie Terrell MD in [place] 02/27/2020 11:00
== END ==
PROVIDERS: PCP Family Medicine; Visit Provider Orthopaedic Surgery
DX: M25.562 Pain in left knee (principal)
CPT/HCPCS: 73564

== ENCOUNTER → 2020-03-20 15:54 | Outpatient (CLI) | payer BC, SELFPAY ==
--- NOTE | 2020-03-20 15:57 | XR_ITS ---
PROCEDURE: XR FEMUR LT 2V CLINICAL INDICATION: Lt leg pain COMPARISON: XR KNEE LT 4V from 02/27/2020 FINDINGS: THERE IS AN OLD HEALED FRACTURE OF THE MID SHAFT AND DISTAL SHAFT OF THE FEMUR. THERE IS A SCREW PRESENT IN THIS REGION. CORTICAL THICKENING IS NOTED. NO ACUTE FRACTURE OR DISLOCATION IS EVIDENT. THERE ARE MILD OSTEOARTHRITIC CHANGES OF THE KNEE. THE HIP HAS AN UNREMARKABLE APPEARANCE. GENERALIZED VASCULAR CALCIFICATION IS NOTED. LUCENCIES ARE PRESENT IN THE MID AND DISTAL SHAFT OF THE FEMUR AND MAY BE DUE TO OLD SCREW TRACKS. Other findings:None. IMPRESSION: OLD MID TO DISTAL FEMUR FRACTURE WITH OSTEOARTHRITIS OF THE KNEE. NO ACUTE FINDING Dictated by: Robbie Terrell MD 03/20/2020 16:50 Electronically signed by Robbie Terrell MD in [place] 03/20/2020 16:50
== END ==
PROVIDERS: PCP Family Medicine; Visit Provider Orthopaedic Surgery
DX: M79.605 Pain in left leg (principal)
CPT/HCPCS: 73552

== ENCOUNTER → 2020-03-29 15:47 | Outpatient (CLI) | payer BC, SELFPAY ==
[2020-03-29 16:02] LABS: Basophils % 0.7 % (0.1-2.0); Eosinophils # 0.1 K/mm3 (0.0-0.4); Eosinophils % 2.3 % (0.1-12.0); Hematocrit 39.1 % (42.0-52.0); Hemoglobin 13.7 g/dL (14.1-18.0); Lymphocytes % 33.1 % (10-50); Mean Corpuscular Hemoglobin 30.8 pg (27.0-31.2); Mean Platelet Volume 7.1 fl (7.4-10.4); Monocytes # 0.6 K/mm3 (0.1-1.0); Monocytes % 10.3 % (1.7-9.3); Neutrophils # 3.3 K/mm3 (1.8-7.8); Neutrophils % 53.6 % (37.0-80.0); Platelet Count 305 K/mm3 (142-424); Red Blood Count 4.45 M/mm3 (4.60-6.20); Red Cell Distribution Width 13.4 % (11.5-17.5); White Blood Count 6.1 K/mm3 (4.8-10.8)
[2020-03-29 16:27] LABS: Activated Partial Thrombo Time 22.5 seconds (23.6-34.0); INR 1.01 (0.9-1.1); Prothrombin Time 10.4 seconds (9.4-11.8)
[2020-03-29 19:23] LABS: Chloride 106 mmol/L (98-107); Potassium 4.6 mmoL/L (3.5-5.1); Sodium 138 mmol/L (136-145)
[2020-03-29 19:26] LABS: Alanine Aminotransferase 21 U/L (12-78); Albumin Level 4.5 g/dl (3.5-5.0); Albumin/Globulin Ratio 1.5 (1.1-1.8); Alkaline Phosphatase 61 U/L (38-126); Anion Gap 13.6 mEq/L (5-15); Aspartate Amino Transferase 36 U/L (17-59); Bilirubin,Total 0.6 mg/dl (0.2-1.3); Blood Urea Nitrogen 21 mg/dl (9-20); Calcium 9.2 mg/dl (8.4-10.2); Carbon Dioxide 23 mmol/L (22.0-30.0); Estimated Glomerular Filt Rate 115 ml/min (>60); GFR (African American) 139 ML/MIN (>60); Glucose 105 mg/dl (74-100); Total Protein,Serum 7.5 g/dl (6.3-8.2)
== END ==
PROVIDERS: Visit Provider Orthopaedic Surgery
DX: Z01.818 Encounter for other preprocedural examination (principal)
CPT/HCPCS: 36415; 80053; 85025; 85610; 85730; 87081

== ENCOUNTER 2020-03-30 16:00 | Outpatient (RCR) | payer BC, SELFPAY ==
--- NOTE | 2020-02-28 09:59 | HMH.PTOPEV ---
PT Outpatient Evaluation Rehab PT Outpatient Evaluation Start: 02/28/20 09:45 Freq: Status: Active Protocol: Document 02/28/20 09:46 ADAM (Rec: 02/28/20 09:58 ADAM [id number]) Electronically Signed By Pablo Joseph, PT 02/28/20 09:46 Outpatient Therapy Subjective History Subjective History Patient is a 59 year old male presenting to outpatient PT with reports of chronic L ankle pain of insidious onset starting approx 2 years ago that has progressively gotten worse. Most recent imaging inidcates significant OA changes. Pt also reports L knee pain and intends to have a TKA this year. Comorbidities include hx of L femur fracture with ORIF, HLD and L knee arthroscopic surgery. Chief Complaint Pain,Stiff,Swelling Symptom Type Sharp Symptoms Relieved By Rest/Positioning Symptoms Aggravated By Standing,Physical Activity, Walking Prior Functional Limitations None Current Functional Limitations Lifting,Housework,Standing, Squatting,Recreation Activity, Walking,Stairs,Balance Symptom Description Intermittent Level of pain today (0-10) 0 Pain scale - at its best (0-10) 0 Pain scale - at its worst (0-10) 7 Ankle/Foot Eval Gait Observation General Gait Pattern Observation Antalgic Gait,Decrease Weight Bear (L) Assistive Device Ambulation Assistive Device None Palpation Tenderness left Ankle/Foot Palpation Findings Tenderness Ankle/Foot Palpation Overall Comment L posteromedial ankle 3/4 ROM Ankle/Foot Dorsiflexion w/Knee Extended 8 Active Range Motion (degrees) Ankle/Foot Plantar Flexion Active Range WNL of Motion (degrees) Ankle/Foot Eversion Active Range of 18 Motion (degrees) Ankle/Foot Inversion Active Range of WNL Motion (degrees) Great Toe ROM Reason Not Measured Within Functional Limits Accessory Movements Ankle Accessory Movements that Elicit Talus Dorsal Independence,Talus Symptoms Ventral Independence MMT left Ankle Dorsiflexion Strength Grade 5 Normal Ankle Plantarflexion Strength Grade 5 Normal Foot Eversion Strength Grade 5 Normal Foot Inversion Strength Grade 4- Good- Special Tests Ankle Anterior Drawer Test Negative Left Ankle Eversion Test Negative Left Talar Tilt Test
--- NOTE | 2020-04-13 17:26 | HMH.PTOPEV ---
PT Outpatient Evaluation Rehab PT Outpatient Evaluation Start: 02/28/20 09:45 Freq: Status: Active Protocol: Document 02/28/20 09:46 ADAM (Rec: 02/28/20 09:58 ADAM [id number]) Electronically Signed By Pablo Joseph, PT 02/28/20 09:46 Outpatient Therapy Subjective History Subjective History Patient is a 59 year old male presenting to outpatient PT with reports of chronic L ankle pain of insidious onset starting approx 2 years ago that has progressively gotten worse. Most recent imaging inidcates significant OA changes. Pt also reports L knee pain and intends to have a TKA this year. Comorbidities include hx of L femur fracture with ORIF, HLD and L knee arthroscopic surgery. Chief Complaint Pain,Stiff,Swelling Symptom Type Sharp Symptoms Relieved By Rest/Positioning Symptoms Aggravated By Standing,Physical Activity, Walking Prior Functional Limitations None Current Functional Limitations Lifting,Housework,Standing, Squatting,Recreation Activity, Walking,Stairs,Balance Symptom Description Intermittent Level of pain today (0-10) 0 Pain scale - at its best (0-10) 0 Pain scale - at its worst (0-10) 7 Ankle/Foot Eval Gait Observation General Gait Pattern Observation Antalgic Gait,Decrease Weight Bear (L) Assistive Device Ambulation Assistive Device None Palpation Tenderness left Ankle/Foot Palpation Findings Tenderness Ankle/Foot Palpation Overall Comment L posteromedial ankle 3/4 ROM Ankle/Foot Dorsiflexion w/Knee Extended 8 Active Range Motion (degrees) Ankle/Foot Plantar Flexion Active Range WNL of Motion (degrees) Ankle/Foot Eversion Active Range of 18 Motion (degrees) Ankle/Foot Inversion Active Range of WNL Motion (degrees) Great Toe ROM Reason Not Measured Within Functional Limits Accessory Movements Ankle Accessory Movements that Elicit [place] Dorsal [place],Talus Symptoms Ventral [place] MMT left Ankle Dorsiflexion Strength Grade 5 Normal Ankle Plantarflexion Strength Grade 5 Normal Foot Eversion Strength Grade 5 Normal Foot Inversion Strength Grade 4- Good- Special Tests Ankle Anterior Drawer Test Negative Left Ankle Eversion Test Negative Left Tal[place] Tilt Test
== END 2020-03-30 16:05 | disposition home or self-care (01) ==
LOC: PT 16:00
PROVIDERS: Visit Provider Orthopaedic Surgery
DX: M25.572 Pain in left ankle and joints of left foot (principal)
CPT/HCPCS: 97010; 97014; 97016; 97033; 97035; 97110; 97112; 97163; G0283

== ENCOUNTER → 2020-04-09 09:51 | Outpatient (CLI) | payer BC, SELFPAY ==
[2020-04-09 14:18] LABS: Coronavirus 19 IgG Antibody Negative (Negative); Coronavirus 19 IgM Antibody Negative (Negative)
== END ==
PROVIDERS: Visit Provider Orthopaedic Surgery
DX: Z01.818 Encounter for other preprocedural examination (principal); M17.12 Unilateral primary osteoarthritis, left knee
CPT/HCPCS: 36415; 86328

== ENCOUNTER 2020-04-10 11:56 | Observation (INO) | payer BC, SELFPAY ==
--- NOTE | 2020-03-28 15:14 | SW/DCPLANNER ---
Addendum entered by Ana Rios 04/11/20 07:23: WENT IN TO SEE PATIENT THIS MORNING: AT BEDSIDE AND HE WAS EATING HIS BREAKFAST. HE STATED HE FEELS GOOD AND THE ONLY THING HE THINKS HE WILL NEED IS A WALKER..PT WILL SEE HIM TODAY AND AFTER THEY GET HIM UP I WILL SEE WHETHER HE WILL NEED A STD OR ROLLING WALKER.. STATED THEY HAVE A LOT OF CARPET IN THEIR HOME. HIS STAY SHOULD BE SHORT, APPEARS HE IS DOING WELL AND HIS PLAN IS TO COME BACK TO [facility] OUTPATIENT FOR HIS REHAB SERVICES.... Original Note: CALLED PATIENT THIS AFTERNOON TO SPEAK WITH HIM ABOUT HIS UPCOMING TOTAL KNEE SURGERY THAT IS GOING TO BE ON APRIL 10... PATIENT STATED HIS WILL BE AT HOME FOR THE FIRST WEEK AND THEN HIS MOTHER IS COMING FROM [place] TO STAY 3-4 WEEKS WITH HIM.. HE HOPES TO COME BACK TO [facility] FOR OUT PATIENT THERAPY. I DID MENTION TO HIM [facility] OFFER OUT PATIENT THERAPY THAT IS A PART OF [facility] AND TOLD HIM TO THINK ABOUT WHERE HE WISES TO GO AND WE WOULD ASSIST WITH THAT... WILL SEE HIM WHEN HE HAS HIS SURGERY...
--- NOTE | 2020-04-06 14:35 | SUR.PREOP ---
Addendum entered by BRIAN Mariano 04/06/20 14:37: 0800 on 04/09/2020 Original Note: 04/06/2020 @ 1436--PHONE CALL MADE TO PATIENT. PATIENT UNDERSTANDS THAT LAB WORK AND COVID TESTING NEEDS TO BE COMPLETED @ . PATIENT UNDERSTANDS IF LAB WORK AND COVID-19 TESTS ARE NOT COMPLETED BY 12PM ON THAT DATE, THE SURGERY SCHEDULED WILL BE CANCELLED AND RESCHEDULED FOR ANOTHER TIME.
[2020-04-09 11:06] VITALS: BMI 38.0
[2020-04-10] VITALS (23 sets, daily range): BP systolic 116–174; BP diastolic 55–98; PULSE 70–103; RESP 12–20; TEMP 36.6–43; O2SAT 93–98; BMI 85.4
--- NOTE | 2020-04-10 08:51 | P.PN_ITS ---
[facility] Anesthesia Checklist - Structural Data Admitted From: Home Planned Operative Procedure/s: ltka Consent for Planned Operative Procedure(s) Verified: Yes - Additional verifications Anesthesia Reactions: No Hx Blood Transfusions: No Blood Transfusion Reaction: No - Airway Assessment C-Spine Mobility Assessed: Yes TMJ Mobility Assessed: Yes Dentition: Poor Dentition - Neurological Assessment Level of Consciousness: Awake, Alert, Appropriate - Anesthesia Plan Anesthesia Plan: Verified ASA Class: II Anesthesia Type: Spinal [facility] History I have reviewed the patient's past medical history: Yes Medical History: Denies:: Cancer, Diabetes Mellitus Type 1, Diabetes Mellitus Type 2, Internal Pacemaker, Lung Disease, MRSA, Seizures *Have you ever received a pneumonia vaccine?: No *Have you received a flu vaccine this season?: Yes Other Medical History: Denies: Blood Transfusion Reaction Anesthesia experience/problems:: none Other Surgeries: Yes: Other. No: Pacemaker Amputation: No Fractures: Yes (Left leg sx) - *Social History Educational Level: Attended College Smoking Status: Former smoker Tobacco Type: cigarettes Smoking End Date: 2018 Alcohol Intake: current Alcohol Intake Frequency:: holidays/special occasions only Substance Use Type: denies use *Occupational Status:: employed Housing: house Household Members: spouse *Travel in the last 8 weeks: None Family Hx:: No significant family history
--- NOTE | 2020-04-10 11:32 | HMH.ANESI ---
[facility] Anesthesia Record Part I Intake, IV Amount: 2,500 Estimated blood loss (mL): 150 Urine output (mL): 800 Blood Pressure: 128/63 SaO2: 98 Pulse Rate: 103 Respiratory Rate: 12 Temperature: 98.4 F Patient is:: Awake, Stable Stable to PACU at:: 11:25
--- NOTE | 2020-04-10 11:48 | XR_ITS ---
PROCEDURE: XR KNEE LT 2V CLINICAL INDICATION: s/p left total knee arthroplasty COMPARISON: KNEE3L KNEE-3 VIEWS-LT from 08/21/2014 XR KNEE LT 3V from 02/13/2020 XR KNEE LT 4V from 02/27/2020 FINDINGS: The patient is status post left knee arthroplasty in good alignment with some gas and fluid within the joint space and overlying soft tissues. IMPRESSION: Status post left knee arthroplasty Dictated by: Figueroa Funes 04/10/2020 12:17 Electronically signed by Figueroa Funes in [place] 04/10/2020 12:17
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
--- NOTE | 2020-04-10 12:23 | HMH.PHAVTE ---
[facility] Pharmacy VTE Monitoring - Patient Demographics Admission date: 04/10/20 Report Date: 04/10/20 Time: 12:24 Allergies/Adverse Reactions: Patient Allergies No Known Allergies Allergy (Verified 04/10/20 06:23) Height: 1.73 m Weight: 113.398 kg - VTE Risk Was VTE Risk Assessment Performed: Yes VTE Score: 5 VTE Risk Level: Low Risk Clinical Trial Participant: No - Prophylaxis VTE Prophylaxis Ordered?: Yes Types of VTE Prophylaxis: IPCS Knee High, Pharmacological (POST OP) Pharmacologic Type: Enoxaparin
--- NOTE | 2020-04-10 12:43 | PC.NURSE ---
1156-radiology at bedside 1201-detailed report called to NAVDEEP Hubbard 1206-pt transported to med/surg room 214 via hospital bed with scott rails up per NAVDEEP Wynn and RACHEL Camarena and left in care of NAVDEEP Hubbard with bed locked in lowest position, vss, pt stable, at bedside
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
[2020-04-10 13:24] LABS: Microscopic,Cath URINE MICROSCOPIC (MICROSCOPIC)
[2020-04-10 14:20] LABS: Appearance,Urine/Cath CLEAR (Clear); Bilirubin,Cath Negative (Negative); Blood, Urine/Cath Negative (Negative); Color,Urine/Cath YELLOW (Yellow); Glucose,Urine/Cath (UA) Negative (Negative); Ketones,Urine/Cath Negative (Negative); Leukocyte Esterase,Cath Negative (Negative); Nitrate,Cath Negative (Negative); Protein,Urine/Cath Negative (Negative); Specific Gravity, Urine/Cath 1.015 (1.005-1.030); Urobilinogen,Cath 0.2 EU/dl (0.2)
[2020-04-10 14:51] LABS: WBC,Urine/Cath Occasional #/hpf (0-3)
--- NOTE | 2020-04-10 16:13 | HMH.ACPN2 ---
Internal Medicine - PN: Subj *Date: 04/10/20 *Time: 16:13 Interval history: Asked to see patient postoperatively for medical management. Exam Vital signs and Labs for Last 24 Hours: Temp Pulse Resp BP Pulse Ox 97.9 F 88 16 142/91 H 97 04/10/20 16:00 04/10/20 16:00 04/10/20 16:00 04/10/20 16:00 04/10/20 16:00 Laboratory Results - last 24 hr 04/10/20 07:50: Urine Color Yellow, Urine Appearance Clear, Urine pH 6.0, Ur Specific [place] 1.015, Urine Protein Negative, Urine Glucose (UA) Negative, Urine Ketones Negative, Urine Blood Negative, Urine Nitrate Negative, Urine Bilirubin Negative, Urine Urobilinogen 0.2, Ur Leukocyte Esterase Negative, Urine RBC None, Urine WBC Occasional, Ur Squamous Epith Cells None, Urine Bacteria None I & O for Last 24 hours: Intake & Output 04/07/20 04/08/20 04/09/20 04/10/20 23:59 23:59 23:59 23:59 Intake Total 2960 / 2960 Output Total 50 / 50 Balance 2910 / 2910 Weight 250 lb 561 lb 15.332 oz - Constitutional no acute distress - *Routine Neurological Exam Present: alert (conversant), oriented X3 Assessment and Plan (1) Left knee DJD Current visit: Yes Status: Acute Category: Medical Code(s): M17.12 - Unilateral primary osteoarthritis, left knee (2) Hyperlipidemia Current visit: Yes Status: Acute Category: Medical Code(s): E78.5 - Hyperlipidemia, unspecified (3) Former smoker Current visit: Yes Status: Acute Category: Social Hx Code(s): Z87.891 - Personal history of nicotine dependence (4) Obesity (BMI 30-39.9) Current visit: Yes Status: Acute Category: Medical Code(s): E66.9 - Obesity, unspecified - Assessment and plan all Dx Assessment and Plan for all problems:: POD #0, continue routine post op care.
--- NOTE | 2020-04-10 17:03 | PC.NURSE ---
Pt is post op from left TKA today. BLE still numb from spinal block. Ice pack to LLE. No pain noted this shift. Tolerated a reg diet. Had PT eval today. Is pulling 1999 on IS. Sats mid on RA.
[2020-04-11 04:00] VITALS: BP 128/80; PULSE 90; RESP 16; TEMP 36.6; O2SAT 96
--- NOTE | 2020-04-11 04:59 | PC.NURSE ---
A&OX4 post-op status L total knee replacement. Pt complaint of pain throughout shift has been medicated per MAR as available rating pain from 6-8on NRS. Polar pack apply to left knee ice changed 3 times this shift. left ankle elevated with pillow per Dr Melo. F/C in place clear yellow urine to gravity. Pt has not slept the entire shift.
[2020-04-11 05:00] VITALS: BMI 40.6
[2020-04-11 05:57] LABS: Basophils % 0.1 % (0.1-2.0); Hemoglobin 11.9 g/dL (14.1-18.0); Lymphocytes # 1.1 K/mm3 (0.7-4.5); Lymphocytes % 6.8 % (10-50); Mean Corpuscular Hemoglobin 30.6 pg (27.0-31.2); Mean Corpuscular Volume 89.9 fl (80-94); Mean Platelet Volume 7.3 fl (7.4-10.4); Monocytes # 1.1 K/mm3 (0.1-1.0); Neutrophils # 13.8 K/mm3 (1.8-7.8); Platelet Count 281 K/mm3 (142-424); Red Blood Count 3.89 M/mm3 (4.60-6.20); Red Cell Distribution Width 13.9 % (11.5-17.5); White Blood Count 16.1 K/mm3 (4.8-10.8)
[2020-04-11 06:00] LABS: MANUAL DIFFERENTIAL MANUAL DIFFERENTIAL (MANUAL DIFF)
[2020-04-11 06:02] LABS: Chloride 105 mmol/L (98-107); Sodium 134 mmol/L (136-145)
[2020-04-11 06:03] LABS: Potassium 4.4 mmoL/L (3.5-5.1)
[2020-04-11 06:05] LABS: Blood Urea Nitrogen 11 mg/dl (9-20); Creatinine Clearance Estimated 226 mL/min (50-200); Estimated Glomerular Filt Rate 137 ml/min (>60); GFR (African American) 166 ML/MIN (>60)
[2020-04-11 06:06] LABS: Anion Gap 7.4 mEq/L (5-15); Carbon Dioxide 26 mmol/L (22.0-30.0)
[2020-04-11 06:12] LABS: Calcium 8.5 mg/dl (8.4-10.2); Glucose 150 mg/dl (74-100)
[2020-04-11 07:00] LABS: Eosinophils % 1 % (0-3); Lymphocytes % 6 % (10-50); Monocytes % 9 % (2-9); Neutrophils % 84 % (42-76); Total Cells Counted 100
[2020-04-11 07:01] LABS: Platelet Estimate Normal; RBC Morphology Normal
--- NOTE | 2020-04-11 07:27 | HMH.PHAINT ---
HOME MEDICATION RECONCILIATION COMPLETED USING LIST FROM PHARMACY AND PT INTERVIEW.
--- NOTE | 2020-04-11 07:50 | HMH.ACPN2 ---
<Edith Gonzalez - Last Filed: 04/11/20 08:01> Internal Medicine - PN: Subj *Date: 04/11/20 *Time: 08:01 Interval history: doing well. Did not sleep though due to knee pain; pain med helps; eating without problems ; does have the hiccups; denies CP and SOB; looking forward to PT and getting espinoza out today. Exam Vital signs and Labs for Last 24 Hours: Temp Pulse Resp BP Pulse Ox 97.9 F 90 16 128/80 96 04/11/20 04:00 04/11/20 04:00 04/11/20 04:00 04/11/20 04:00 04/11/20 04:00 Laboratory Results - last 24 hr 04/10/20 07:50: Urine Color Yellow, Urine Appearance Clear, Urine pH 6.0, Ur Specific [place] 1.015, Urine Protein Negative, Urine Glucose (UA) Negative, Urine Ketones Negative, Urine Blood Negative, Urine Nitrate Negative, Urine Bilirubin Negative, Urine Urobilinogen 0.2, Ur Leukocyte Esterase Negative, Urine RBC None, Urine WBC Occasional, Ur Squamous Epith Cells None, Urine Bacteria None 04/11/20 05:35: WBC 16.1 H, RBC 3.89 L, Hgb 11.9 L, Hct 35.0 L, MCV 89.9, MCH 30.6, MCHC 34.0, RDW 13.9, Plt Count 281, MPV 7.3 L, Neut % (Auto) 86.0 H, Lymph % (Auto) 6.8 L, [place] % (Auto) 7.0, Eos % (Auto) 0.0 L, Baso % (Auto) 0.1, Neut # (Auto) 13.8 H, Lymph # (Auto) 1.1, [place] # (Auto) 1.1 H, Eos # (Auto) 0.0, Baso # (Auto) 0.0, Total Counted 100, Neutrophils % (Manual) 84 H, Lymphocytes % (Manual) 6 L, Monocytes % (Manual) 9, Eosinophils % (Manual) 1, Platelet Estimate Normal, RBC Morphology Normal 04/11/20 05:35: Sodium 134 L, Potassium 4.4, Chloride 105, Carbon Dioxide 26, Anion Gap 7.4, BUN 11, Creatinine 0.60 L, Estimated Creat Clear 226, Estimated GFR 137, Est GFR ( Amer) 166, Glucose 150 H, Calcium 8.5 I & O for Last 24 hours: Intake & Output 04/08/20 04/09/20 04/10/20 04/11/20 11:59 11:59 11:59 11:59 Intake Total 2500 / 2500 1827 / 1827 Output Total 1025 / 1025 Balance 2500 / 2500 802 / 802 Weight 250 lb 268 lb 8 oz - Constitutional no acute distress Comments: sitting u in the bed eating breakfast; has continuous ice flow to the knee - *Routine Respiratory Exam Present: CTA bilaterally - *Routine Cardiovascular Exam Present: RRR - *Routine Abdominal Exam Present: soft, normoactive bowel sounds. Absent: tenderness - *Routine Extremities Exam Present: pulses intact. Absent: edema Comments: left leg- moves his toes well; mine covering to include his foot with good pulses bilaterally - *Routine Neurological Exam Present: alert, oriented X3 Assessment and Plan (1) Left knee DJD Current visit: Yes Status: Acute Category: Medical Code(s): M17.12 - Unilateral primary osteoarthritis, left knee (2) Hyperlipidemia Current visit: Yes Status: Acute Category: Medical Code(s): E78.5 - Hyperlipidemia, unspecified (3) Former smoker Current visit: Yes Status: Acute Category: Social Hx Code(s): Z87.891 - Personal history of nicotine dependence (4) Obesity (BMI 30-39.9) Current visit: Yes Status: Acute Category: Medical Code(s): E66.9 - Obesity, unspecified - Assessment and plan all Dx Assessment and Plan for all problems:: continue with postop care as per Dr. Melo <Piero Arteaga - Last Filed: 04/11/20 11:24> Internal Medicine - PN: Subj *Date: 04/11/20 *Time: 11:24 Exam Vital signs and Labs for Last 24 Hours: Temp Pulse Resp BP Pulse Ox 97.9 F 99 H 17 138/76 95 04/11/20 08:50 04/11/20 09:08 04/11/20 09:08 04/11/20 08:50 04/11/20 09:08 Laboratory Results - last 24 hr 04/10/20 07:50: Urine Color Yellow, Urine Appearance Clear, Urine pH 6.0, Ur Specific [place] 1.015, Urine Protein Negative, Urine Glucose (UA) Negative, Urine Ketones Negative, Urine Blood Negative, Urine Nitrate Negative, Urine Bilirubin Negative, Urine Urobilinogen 0.2, Ur Leukocyte Esterase Negative, Urine RBC None, Urine WBC Occasional, Ur Squamous Epith Cells None, Urine Bacteria None 04/11/20 05:35: WBC 16.1 H, RBC 3.89 L, Hgb 11.9 L, Hct 35
[2020-04-11 08:00] VITALS: BP 130/62; PULSE 99; RESP 17; TEMP 36.6; O2SAT 95
--- NOTE | 2020-04-11 08:49 | HMH.ANESII ---
[facility] Anesthesia Record Part II Discharge Time: 11:55 Destination: floor PACU nurse assessment reviewed?: Yes Patient Condition:: Good Anesthesia Complications:: None Swallowing reflex intact?: Yes Cyanosis?: No Blood Pressure: 138/76 Pulse Rate: 84 Temperature: 97.9 F Mental Status: Alert & Oriented Pain level:: 0 Nausea and/or vomitting:: None Intake, IV Amount: 2,500
[2020-04-11 08:50] VITALS: BP 138/76; PULSE 84; TEMP 36.6
[2020-04-11 09:08] VITALS: PULSE 99; RESP 17; O2SAT 95
--- NOTE | 2020-04-11 10:27 | PC.NURSE ---
PATIENT WILL BENEFIT FROM A BEDSIDE COMMODE & ROLLING WALKER UPON DISCHARGE DUE TO TOTAL KNEE REPLACEMENT AND DISTANCE TO IN HOME BATHROOM.
--- NOTE | 2020-04-11 10:30 | SW/DCPLANNER ---
RECEIVED REFERRAL FOR A BEDSIDE COMMODE AND ROLLING WALKER FOR THIS PATIENT: PATIENT PRESENTED INTO THE HOSPITAL WITH A LEFT TOTAL KNEE REPLACEMENT.... PATIENT WAS SEEN BY PHYSICAL THERAPY AND HE STATED PATIENT DID WELL AND IS SAFE TO GO HOME.. PATIENT HAS REQUESTED TO COME BACK TO [facility] FOR HIS REHAB AND THIS HAS BEEN SET UP FOR HIM.... HE MAY DISCHARGE LATER IN THE DAY.
--- NOTE | 2020-04-11 10:31 | HMH.PTEV ---
Physical Therapy Evaluation Rehab PT IP Evaluation Start: 04/10/20 11:59 Freq: ONCE Status: Active Protocol: Document 04/11/20 10:23 [facility] (Rec: 04/11/20 10:31 [facility] [id number]) Subjective/History History History 59 yowm adm to [facility] for L TKA. He reports having ramp to enter the home, lives with his and was independent with all self care/mobility prior to surgery. Subjective Subjective Pt reports some pain, but better than he expected with WB'ing. Rehab PT IP Eval Objective Appearance Patient Behavior Appropriate Patient Orientation Person,Place,Time Difficulty following instructions none Speech Pattern Clear Ambulation Patient Able to Ambulate Yes Ambulation Observation IP General Gait Pattern Observation Antalgic Gait,Wide Based Gait Ambulation Distance (feet) 25 Ambulation Assistive Device Rolling Walker Balance Ability to Arise Able, uses arms to help Sitting Balance Steady, safe Standing Balance Steady, wide stance Dynamic Sitting Balance Ability Good Dynamic Standing Balance Ability Good Transfers Bed Transfer Ability Independent Chair Transfer Ability Supervision/Stand by Sit to Stand Bed Transfer Ability Supervision/Stand by Sit to Stand Chair Transfer Ability Supervision/Stand by ROM All Extremities PT ROM Status WFL Abnormal ROM Comment except L knee ~5-75 MMT All Extremities PT MMT WFL Abnormal MMT Grade except L knee 3/5 Rehab PT IP prob,goals,plan Problems Date of Evaluation: 04/11/20 PT IP Problems Bed Mobility,Transfers,Gait Rehab Potential Rehab Potential Good Equipment Needs Assistive Devices Rolling / Wheeled Walker Plan PT Intervention Plan Bed Mobility,Transfers,Gait, Therapeutic Exercise PT Plan Frequency BID Duration LOS Discharge Goals Bed Transfer Ability Independent Sit to Stand Chair Transfer Ability Independent Ambulation Assistive Device Rolling Walker Ambulation Distance (feet) 40 Discharge Plan PT Discharge Plan Pt is appropriate to return home once medically stable. Recommended RW and BSC for home use to ensure safety. G -code Required No Eval Complexity Eval Charge Codes 29657 - Moderate Complexity
--- NOTE | 2020-04-11 10:53 | HMH.OTEV ---
OT Inpatient Evaluation Rehab OT IP Evaluation Start: 04/10/20 11:59 Freq: ONCE Status: Complete Protocol: Document 04/11/20 10:48 [facility] (Rec: 04/11/20 10:52 [facility] [id number]) Rehab OT IP Assessment Subjective History Pt oriented x 3 on arrival; pt agreeable to engage in therapy evaluation. Pt is a 59 year old male who was admitted after surgery on 04/10. Pt is currently s/p L TKA. Pt reports prior to suregery he was independent with all ADL's and IADL's. He did not require adaptive equipment with any activities of daily living and he also still drove. Pt plans to return home with his who will be able to assist with daily living tasks. Subjective I am trying to keep it as straight as I can. Objective Patient Orientation Person,Place,Time,Birthday, Year Upper Extremity Gross ROM WFL Transfer Training Sit/Stand Transfer Assist Level Contact Guard/Hand Hold Chair Transfer Ability Contact Guard/Hand Hold Chair Transfer Technique Sit to/from Ambulatory Chair Transfer Assistive Devices Rolling Walker Rehab OT IP prob,goals,plan Problems Date of Evaluation: 04/11/20 OT IP Problems Bed Mobility,Transfers,Gait, Balance,Self care,Safety Rehab Potential Rehab Potential Good Equipment Needs Assistive Devices Rolling / Wheeled Walker Plan OT intervention Plan Bed Mobility,Transfers,Gait, Balance,Self care,Safety, Therapeutic Exercise OT Plan Frequency Daily Duration LOS Discharge Goals Bed Mobility Ability Standby Assistance Sit to Stand Chair Transfer Ability Supervision/Stand by Chair Transfer Ability Supervision/Stand by Chair Transfer Technique Sit to/from Ambulatory Chair Transfer Assistive Devices Rolling Walker Self care skills fully toilet trained,uses utensils to feed self Feeding Ability Independent Lower Body Dressing Ability Assistance X1 Upper Body Dressing Ability Standby Assistance Bathing Ability Assistance x1 Performing Toilet Hygiene Ability Standby Assistance Overall Commode/T
[2020-04-11 11:47] VITALS: BP 142/80; PULSE 85; RESP 18; TEMP 36.4; O2SAT 97
[2020-04-11 12:00] VITALS: BMI 40.7
--- NOTE | 2020-04-11 12:01 | P.PN_ITS ---
Subjective Date: 04/11/20 Time: 12:00 Principal diagnosis: s/p L TKA Interval history: The patient is doing very well this morning. He did have dilaudid overnight but is only taking percocet this morning and says his pain is reasonably well- controlled. He has been up with PT has been doing exercises while in bed. He is sitting a bedside chair when I arrive, with a pillow under the ankle, working on knee extension. Araujo was removed this morning, IV antibiotics for 24hr prophy have finished. Lovenox was started this morning, celebrex continues. AFVSS, no n/v/d, no cp/soa. PN: Obj Ex Vital signs: Temp Pulse Resp BP Pulse Ox 97.6 F 85 18 142/80 H 97 04/11/20 11:47 04/11/20 11:47 04/11/20 11:47 04/11/20 11:47 04/11/20 11:47 - Constitutional no acute distress - Routine HEENT Exam Head: Present: normocephalic Eye: Present: EOMI ENT: Present: mucous membranes moist - Routine Neck Exam Present: supple - Routine Respiratory Exam Present: CTA bilaterally. Absent: respiratory distress, wheezes - Routine Cardiovascular Exam Present: RRR - Routine Abdominal Exam Present: soft. Absent: tenderness, distended - Routine Extremities Exam Comments: dressings intact LLE, no strikethrough; [facility] device in place for cryotherapy +DF/PF/EHL LLE, 5/5 strength SILT distally LLE in all distributions L calf soft, compressible, non-tender palpable DP/PT pulses LLE, foot warm/pink with BCR - Routine Skin Exam Present: warm - Routine Neurological Exam Present: alert, oriented X3, moving all extremities, normal tone, vision grossly intact, hearing grossly intact, normal speech. Absent: sensory deficit, motor deficit, altered mental status - Routine Psychiatric Exam Present: normal affect - Urinary Catheter Management Coude Cath placed during this visit: yes, but has since been removed by the nurse Urethral indwelling: No Insertion date: 04/10/20 Removal date: 04/11/20 Progress Note: A&P (1) Left knee DJD Status: Acute Current Visit: Yes (2) Hyperlipidemia Status: Acute Current Visit: Yes (3) Former smoker Status: Acute Current Visit: Yes (4) Obesity (BMI 30-39.9) Status: Acute Current Visit: Yes Assessment and Plan for All Diagnoses:: 59yo M POD 1 s/p L TKA -- WBC 16 this morning, patient afebrile with stable vitals; no hypotension or tachycardia. Leukocytosis likely from physiologic stress of surgery combined with perioperative IV decadron. -- WBAT LLE, PT/OT has evaluated and deemed safe for return home. Will continue PT as outpatient; first visit scheduled 04/13/20 at 4pm. -- elevate/ice LLE; [facility] device for cryotherapy -- SCDs BLE, encourage IS 10x/hr while awake -- lovenox 40mg QD started today, continue x14 days; will then transition to ASA x1 month -- pain control: percocet PO -- celebrex 200mg PO x 1 week -- continue home medications -- Dr. Arteaga on consult for medical management -- medically appropriate for d/c today, patient desires to return home today; will d/c with follow-up with me on 04/23/20. I will see him during his first PT visit Thursday to perform his first dressing change.
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
== END 2020-04-11 13:46 | disposition home or self-care (01) ==
LOC: 2ND 11:56
PROVIDERS: Admitting Provider Orthopaedic Surgery; PCP Family Medicine; Visit Provider Orthopaedic Surgery
PROC: (CPT 27447; principal; 2020-04-10 07:30)
DX: M17.12 Unilateral primary osteoarthritis, left knee (principal); E78.5 Hyperlipidemia, unspecified; Z87.891 Personal history of nicotine dependence; M25.562 Pain in left knee
CPT/HCPCS: 27447; 36415; 73560; 80048; 81001; 85007; 85025; 96374; 96375; 97140; 97162; 97166; 97530; 97535; C1713; C1776; G0378; J2704

== ENCOUNTER → 2020-04-23 12:18 | Outpatient (CLI) | payer BC, SELFPAY ==
--- NOTE | 2020-04-23 12:19 | XR_ITS ---
PROCEDURE: XR KNEE LT 3V CLINICAL INDICATION: S/P TKA Follow-up knee replacement COMPARISON: KNEE3L KNEE-3 VIEWS-LT from 08/21/2014 XR KNEE LT 3V from 02/13/2020 XR KNEE LT 4V from 02/27/2020 XR KNEE LT 2V from 04/10/2020 FINDINGS: Good alignment status post total knee replacement. No evidence of orthopedic complication. No acute fracture or dislocation. No lytic or blastic change. There is an old fracture of the distal femur IMPRESSION: Good alignment status post total knee replacement Dictated by: Robbie Terrell MD 04/23/2020 13:37 Electronically signed by Robbie Terrell MD in [place] 04/23/2020 13:37
== END ==
PROVIDERS: PCP Family Medicine; Visit Provider Orthopaedic Surgery
DX: M17.12 Unilateral primary osteoarthritis, left knee (principal); Z96.652 Presence of left artificial knee joint
CPT/HCPCS: 73562

== ENCOUNTER → 2020-04-27 12:08 | Outpatient (CLI) | payer BC, SELFPAY ==
--- NOTE | 2020-04-27 12:09 | XR_ITS ---
PROCEDURE: XR KNEE LT 3V CLINICAL INDICATION: LT TKA complication Follow-up surgery COMPARISON: XR KNEE LT 3V from 02/13/2020 XR KNEE LT 4V from 02/27/2020 XR KNEE LT 2V from 04/10/2020 XR KNEE LT 3V from 04/23/2020 FINDINGS: Status post total knee arthroplasty with good alignment. On the patellar view there is some decreased attenuation along the medial aspect of the patella posteriorly. While this could be technical, 1 cannot exclude the possibility of but venancio of process such as osteomyelitis. Follow-up is suggested. Please correlate with clinical findings. IMPRESSION: Status post total knee replacement. Questionable erosive change along the posterior patella medially. Please correlate with clinical findings Dictated by: Robbie Terrell MD 04/27/2020 14:11 Electronically signed by Robbie Terrell MD in [place] 04/27/2020 14:11
== END ==
PROVIDERS: PCP Family Medicine; Visit Provider Orthopaedic Surgery
DX: M25.562 Pain in left knee (principal); Z96.652 Presence of left artificial knee joint
CPT/HCPCS: 73562

== ENCOUNTER 2020-06-12 08:00 | Outpatient (RCR) | payer BC, SELFPAY ==
--- NOTE | 2020-05-16 10:05 | HMH.RHREAS ---
Rehab Reassessment Rehab OP Re-assessment Start: 05/16/20 09:54 Freq: Status: Active Protocol: Document 05/16/20 09:55 ADAM (Rec: 05/16/20 10:05 ADAM [id number]) Electronically Signed By Pablo Joseph, PT 05/16/20 09:55 Rehab Re-assessment Subjective Subjective Patient reports 70% improvement since start of care. Objective Objective Notes AROM: flx 124 ext 0 MMT: hip flx 4+/5; hip abd 4+/ 5; hip add 4/5; hip ext 4+/5; IR/ER 4/5; knee ext 4/5; knee flx 4+/5 TTP: med/lat joint line 2/4 Neuro: WNL Pain: 5/10 at worst over past week Assessment Progress Assessment Progressing as Expected Assessment Notes Pt progressing well with Rx. ROM nearly symmtetrical. At this point motor control/ stability is the main concern. Pt continues to have difficulty with standing/ ambulatory activities resulting in functional limitations with household, recreational and work related activities. Patient goals met STG's LTG 2 Goals Not Met All other LTG's Revised Goals NA Plan Plan Continue with POC Frequency of Therapy 2x/week Duration of therapy 4 weeks Time and Billing Re-Eval Time 15 Re-Eval Billing Units 1 PHYSICIAN CERTIFICATION: I certify the specified therapy services for Trav [facility] are required, authorized, and reviewed every 30 days.
== END 2020-06-12 09:34 | disposition home or self-care (01) ==
LOC: PT 08:00
PROVIDERS: Visit Provider Orthopaedic Surgery
DX: M25.562 Pain in left knee; Z96.652 Presence of left artificial knee joint
CPT/HCPCS: 97010; 97014; 97016; 97110; 97140; 97163; 97164; 97760; G0283

== ENCOUNTER → 2020-06-21 14:02 | Outpatient (CLI) | payer BC, SELFPAY ==
--- NOTE | 2020-06-21 14:25 | XR_ITS ---
PROCEDURE: XR KNEE LT 3V CLINICAL INDICATION: sp LT tka, dos 04/10/2020 Follow-up knee replacement COMPARISON: CR XR KNEE LT 4V from 02/27/2020 CR XR KNEE LT 2V from 04/10/2020 DX XR KNEE LT 3V from 04/23/2020 DX XR KNEE LT 3V from 04/27/2020 FINDINGS: Status post total knee replacement with good alignment. There is an old distal femur fracture. There was a question of erosive change along the posterior patella medially on the old exam of 04/27/2020. [place] views however were not performed on today's exam. There is some soft tissue swelling about the knee. There is a screw present within the distal shaft of the femur. IMPRESSION: Status post total knee replacement with good alignment Dictated by: Robbie Terrell MD 06/21/2020 16:06 Robbie Terrell MD in [place] 06/21/2020 16:06
== END ==
PROVIDERS: PCP Family Medicine; Visit Provider Orthopaedic Surgery
DX: M25.562 Pain in left knee (principal); Z96.652 Presence of left artificial knee joint
CPT/HCPCS: 73562

== ENCOUNTER → 2020-08-10 15:46 | Outpatient (CLI) | payer BC, SELFPAY ==
--- NOTE | 2020-08-10 15:49 | XR_ITS ---
PROCEDURE: XR KNEE RT 4V CLINICAL INDICATION: RT knee Pain COMPARISON: CR XR KNEE LT 2V from 04/10/2020 DX XR KNEE LT 3V from 04/23/2020 DX XR KNEE LT 3V from 04/27/2020 DX XR KNEE LT 3V from 06/21/2020 FINDINGS: Mild osteoarthritic changes are present involving the medial compartment and patellofemoral joint laterally. No fracture or dislocation. No lytic or blastic change. There is a faint calcific density overlying the medial aspect of the lateral joint space possibly due to a loose body at 4 mm. IMPRESSION: Mild osteoarthritic changes. Possible loose body medial joint space. Dictated by: Robbie Terrell MD 08/10/2020 17:07 Robbie Terrell MD in [place] 08/10/2020 17:07
== END ==
PROVIDERS: PCP Family Medicine; Visit Provider Orthopaedic Surgery
DX: M25.561 Pain in right knee (principal)
CPT/HCPCS: 73564

== ENCOUNTER → 2020-09-03 13:50 | Outpatient (CLI) | payer BC, SELFPAY ==
--- NOTE | 2020-09-03 13:53 | XR_ITS ---
PROCEDURE: XR KNEE RT 4V CLINICAL INDICATION: pre-op RT TKA Knee pain COMPARISON: DX XR KNEE LT 3V from 04/23/2020 DX XR KNEE LT 3V from 04/27/2020 DX XR KNEE LT 3V from 06/21/2020 CR XR KNEE RT 4V from 08/10/2020 FINDINGS: No fracture or dislocation. No lytic or blastic change. There is normal mineralization. Mild osteoarthritic changes are present involving the medial compartment and patellofemoral joint Other findings:There is a small calcific density along the medial aspect of the lateral joint space and could be due to small loose body or osteophyte. IMPRESSION: No change mild osteoarthritis of the right knee with possible loose body Dictated by: Robbie Terrell MD 09/03/2020 15:14 Robbie Terrell MD in [place] 09/03/2020 15:14
--- NOTE | 2020-09-03 15:09 | XR_ITS ---
PROCEDURE: REPEAT VIEW XR CLINICAL INDICATION: Pain COMPARISON: CR XR KNEE RT 4V from 09/03/2020 FINDINGS: No fracture or dislocation. No lytic or blastic change. There is normal mineralization. Mild osteoarthritic changes are present involving the medial compartment and patellofemoral joint Other findings:There is a small calcific density along the medial aspect of the lateral joint space and could be due to small loose body or osteophyte.. These exams were repeated with a marker placed for pre-surgical evaluation. IMPRESSION: No change. Mild osteoarthritis with possible loose body Dictated by: Robbie Terrell MD 09/03/2020 15:59 Robbie Terrell MD in [place] 09/03/2020 15:59
[2020-09-03 15:35] LABS: MANUAL DIFFERENTIAL MANUAL DIFFERENTIAL (MANUAL DIFF)
[2020-09-03 16:11] LABS: Basophils % 0.4 % (0.1-2.0); Eosinophils # 0.1 K/mm3 (0.0-0.4); Eosinophils % 1.1 % (0.1-12.0); Hematocrit 42.5 % (42.0-52.0); Hemoglobin 14.3 g/dL (14.1-18.0); Lymphocytes # 1.8 K/mm3 (0.7-4.5); Lymphocytes % 24.8 % (10-50); Mean Corpuscular HGB Conc 33.7 g/dL (31.8-35.4); Mean Corpuscular Hemoglobin 29.5 pg (27.0-31.2); Mean Corpuscular Volume 87.5 fl (80-94); Mean Platelet Volume 7.6 fl (7.4-10.4); Monocytes # 0.4 K/mm3 (0.1-1.0); Monocytes % 6.3 % (1.7-9.3); Neutrophils # 4.8 K/mm3 (1.8-7.8); Neutrophils % 67.5 % (37.0-80.0); Platelet Count 391 K/mm3 (142-424); Red Blood Count 4.85 M/mm3 (4.60-6.20); Red Cell Distribution Width 14.3 % (11.5-17.5); White Blood Count 7.1 K/mm3 (4.8-10.8)
[2020-09-03 16:42] LABS: Activated Partial Thrombo Time 23.2 seconds (23.6-34.0); INR 0.93 (0.9-1.1); Prothrombin Time 10.4 seconds (9.4-11.8)
[2020-09-03 16:58] LABS: Alanine Aminotransferase 20 U/L (12-78); Albumin Level 4.7 g/dl (3.5-5.0); Albumin/Globulin Ratio 1.6 (1.1-1.8); Alkaline Phosphatase 79 U/L (38-126); Anion Gap 13.5 mEq/L (5-15); Aspartate Amino Transferase 31 U/L (17-59); Bilirubin,Total 0.4 mg/dl (0.2-1.3); Blood Urea Nitrogen 18 mg/dl (9-20); Calcium 10.1 mg/dl (8.4-10.2); Carbon Dioxide 22 mmol/L (22.0-30.0); Chloride 108 mmol/L (98-107); Estimated Glomerular Filt Rate 115 ml/min (>60); GFR (African American) 139 ML/MIN (>60); Globulin 2.9 g/dL (1.3-3.2); Glucose 92 mg/dl (74-100); Potassium 4.5 mmoL/L (3.5-5.1); Sodium 139 mmol/L (136-145); Total Protein,Serum 7.6 g/dl (6.3-8.2)
[2020-09-03 16:59] LABS: Lymphocytes % 28 % (10-50); Monocytes % 6 % (2-9); Neutrophils % 66 % (42-76); Platelet Estimate Normal; RBC Morphology Normal; Total Cells Counted 100
== END ==
PROVIDERS: PCP Family Medicine; Visit Provider Orthopaedic Surgery
DX: Z01.818 Encounter for other preprocedural examination (principal); M17.11 Unilateral primary osteoarthritis, right knee; Z96.651 Presence of right artificial knee joint
CPT/HCPCS: 36415; 73564; 80053; 85007; 85014; 85018; 85048; 85049; 85610; 85730; 87081

== ENCOUNTER → 2020-09-08 11:39 | Outpatient (CLI) | payer BC, SELFPAY ==
[2020-09-08 13:20] LABS: Coronavirus 19 IgG Antibody Negative (Negative); Coronavirus 19 IgM Antibody Negative (Negative)
== END ==
PROVIDERS: Visit Provider Orthopaedic Surgery
DX: Z01.818 Encounter for other preprocedural examination (principal); M17.11 Unilateral primary osteoarthritis, right knee
CPT/HCPCS: 36415; 86328; 86850

== ENCOUNTER 2020-09-11 07:31 | Observation (INO) | payer BC, SELFPAY ==
[2020-09-11] VITALS (20 sets, daily range): BP systolic 108–141; BP diastolic 67–106; PULSE 80–89; RESP 12–20; TEMP 35.6–38; O2SAT 93–97; BMI 44.2; BMI 40.0
--- NOTE | 2020-09-11 09:04 | HMH.HP ---
*Admission Date: 09/11/20 *Chief complaint: s/p R TKA *History of present illness: 60yo M with R knee DJD and chronic pain, rated a 5 at rest and 8 at worst, worst over the medial aspect of the knee. He has no prior injuries to the right leg that he can recall, no previous surgeries on the right knee. He underwent L TKA 04/10/20 and did very well. The right knee is beginning to decrease his quality of life and he desires surgical intervention at this time. He is able to perform his job at the same level he was previously, but by the end of the week his right knee is so painful that it takes him the entire weekend to recover and he is unable to do things that he enjoys with his family. Since his last surgery he has not developed any new medical issues. He denies chest pain or shortness of breath either at rest or with exertion. He is taking gabapentin, tramadol and naproxen daily for pain, in addition to his baseline rosuvastatin. No aspirin or anti-coagulant use. He is a non-smoker. He reports continued numbness and tingling in his arms and hands in BUE, along with chronic neck pain; these have been present for quite some time and he had cervical spine surgery scheduled to be done in December 2019, but this was cancelled when the covid-19 pandemic occurred. Pre-operative labs were within normal limits and covid antibody test negative. His MRSA nasal swab was positive so bactroban was prescribed and used by the patient BID for the past 5 days. The patient underwent R TKA this morning without complication. IVF 1400cc LR EBL 100cc UOP 300cc H History I have reviewed the patient's past medical history: Yes Medical History: Reports:: Hyperlipidemia Denies:: Cancer, Diabetes Mellitus Type 1, Diabetes Mellitus Type 2, Internal Pacemaker, Lung Disease, MRSA, Seizures *Have you ever received a pneumonia vaccine?: No *Have you received a flu vaccine this season?: Yes Other Medical History: Denies: Blood Transfusion Reaction Laterality Cases: Left: Arthroscopy Knee Other Surgeries: Yes: Colonoscopy, Other. No: Pacemaker Amputation: No Fractures: Yes (Left leg sx) - *Social History Smoking Status: Former smoker Tobacco Type: cigarettes Alcohol Intake: never Alcohol Intake Frequency:: 3 or more drinks per day Substance Use Type: former substance user *Occupational Status:: retired Housing: house Household Members: spouse *Travel in the last 8 weeks: None Family Hx:: Cancer, Hyperlipidemia Review of Systems - Review of Systems Review of systems:: pertinent systems reviewed and negative unless documented below Meds Home Medications Medication Instructions Recorded Confirmed Type RX: Cyclobenzaprine HCl 10 mg PO BID PRN 04/10/20 09/11/20 History [Cyclobenzaprine 10mg Tab*] RX: Gabapentin [Neurontin 300mg 300 mg PO QID 04/10/20 09/11/20 History capsule] RX: Rosuvastatin Calcium 10 mg PO DAILY 04/10/20 09/11/20 History RX: Celecoxib [CeleBREX 100mg 200 mg PO DAILY 09/05/20 09/11/20 History Capsule] RX: Enoxaparin Sodium [Lovenox 40 mg SQ DAILY 09/05/20 09/11/20 History 40mg/0.4mL syringe] RX: Enoxaparin Sodium [Lovenox 40 mg SQ DAILY 14 Days syringe 09/11/20 Rx 40mg/0.4mL syringe] RX: Mupirocin [Centany] 1 applic TOPICAL BID 09/11/20 09/11/20 History RX: Oxycodone HCl/Acetaminophen 1 each PO Q6HP PRN #30 tab 09/11/20 Rx [Percocet 5/325mg tablet] Tramadol HCl [Tramadol ER 100mg 50 mg PO NEEDED PRN 09/11/20 09/11/20 History Cap] Allergies Allergy/AdvReac Type Severity Reaction Status Date / Time No Known Allergies Allergy Verified 09/11/20 08:25 Exam Vital signs and Labs for Last 24 Hours: Temp Pulse Resp BP Pulse Ox 97.4 F L 80 18 133/106 H 96 09/11/20 08:36 09/11/20 08:36 09/11/20 08:36 09/11/20 08:36 09/11/20 08:36 I & O for Last 24 hours: Intake & Output 09/08/20 09/09/20 09/10/20 09/11/20 11:59 11:59 11:59 11:59 Weight 250 lb - Constitutional no
--- NOTE | 2020-09-11 09:21 | HMH.ANESCL ---
[facility] Anesthesia Checklist - Patient Identification Patient Identification: Arm Band, Verbal (Name & ) - Structural Data Admitted From: Home Planned Operative Procedure/s: Right TKA Consent for Planned Operative Procedure(s) Verified: Yes Verified Documents: Surgical Consent, History and Physical - NPO Status Verified Time NPO: 06:30 (black coffee) - Chart Verification Results Verified: CBC, BMP, PT, PTT, INR - Additional verifications Anesthesia Reactions: No Hx Blood Transfusions: No Blood Transfusion Reaction: No - Airway Assessment C-Spine Mobility Assessed: Yes TMJ Mobility Assessed: Yes Dentition: Poor Dentition (missing teeth) - Neurological Assessment Level of Consciousness: Awake, Alert, Appropriate, Follows Commands Hx Seizures: No Numbness or tingling in extremities: Yes - Anesthesia Plan Anesthesia Risk discussed: Yes Anesthesia Plan: Verified ASA Class: III Anesthesia Type: Spinal (with adductor canal block) [facility] History I have reviewed the patient's past medical history: Yes Medical History: Reports:: Hyperlipidemia Denies:: Cancer, Diabetes Mellitus Type 1, Diabetes Mellitus Type 2, Internal Pacemaker, Lung Disease, MRSA, Seizures *Have you ever received a pneumonia vaccine?: No *Have you received a flu vaccine this season?: Yes Other Medical History: Denies: Blood Transfusion Reaction Comment:: morbid obesity, chronic back pain Anesthesia experience/problems:: None Laterality Cases: Left: Total Knee Replacement Other Surgeries: Yes: Colonoscopy, Other. No: Pacemaker Amputation: No Fractures: Yes (Left leg sx) - *Social History Smoking Status: Former smoker Tobacco Type: cigarettes Alcohol Intake: never Alcohol Intake Frequency:: 3 or more drinks per day Substance Use Type: denies use *Occupational Status:: retired Housing: house Household Members: spouse *Travel in the last 8 weeks: None Family Hx:: Cancer, Hyperlipidemia
--- NOTE | 2020-09-11 09:55 | SW/DCPLANNER ---
Addendum entered by Ana Rios 09/12/20 11:26: PATIENT IS DISCHARGING HOME TODAY AND IS SET UP FOR OUTPATIENT PHYSICAL THERAPY FOR THIS AFTERNOON... PATIENT STATED HE HAS EVERYTHING HE NEEDS AT HOME... AT BEDSIDE. Original Note: RECEIVED REFERRAL FOR THIS PATIENT FOR DISCHARGE PLANNING: MR MARTELL IS SCHEDULED HERE FOR SURGERY TODAY... HE IS HAVING A RIGHT TOTAL KNEE... BACK IN MARCH HE HAD THE OTHER KNEE DONE AND DID WELL WITH A FULL RECOVERY.. HE HAS BEEN SET UP THROUGH THE OFFICE WITH OUTPATIENT PHYSICAL THERAPY PER DR LOMELI....ANYTHING ELSE THAT THIS PATIENT MAY NEED WILL BE SET UP AT TIME OF DISPOSITION...
--- NOTE | 2020-09-11 13:04 | SUR.OPER ---
1035-family updated at this time 1304-family updated at this time
--- NOTE | 2020-09-11 14:05 | XR_ITS ---
PROCEDURE: XR KNEE RT 2V CLINICAL INDICATION: s/p R TKA Follow-up total knee replacement COMPARISON: DX XR KNEE LT 3V from 04/27/2020 DX XR KNEE LT 3V from 06/21/2020 CR XR KNEE RT 4V from 08/10/2020 CR XR KNEE RT 4V from 09/03/2020 FINDINGS: Total knee replacement hardware in place with good position/alignment. Longitudinal lucency is projected over the proximal tibia on the lateral view not apparent on the AP view and may be due to overlying soft tissue gas. Soft tissue gas is present about the knee joint. There is an air-fluid level within the knee joint. Bandage artifact is noted anteriorly. IMPRESSION: Status post total knee replacement with good alignment as described above. Dictated by: Robbie Terrell MD 09/11/2020 14:26 Robbie Terrell MD in [place] 09/11/2020 14:26
[2020-09-11 14:19] LABS: Microscopic,Cath URINE MICROSCOPIC (MICROSCOPIC)
[2020-09-11 14:23] LABS: Appearance,Urine/Cath CLEAR (Clear); Bilirubin,Cath Negative (Negative); Blood, Urine/Cath Negative (Negative); Color,Urine/Cath YELLOW (Yellow); Glucose,Urine/Cath (UA) Negative (Negative); Ketones,Urine/Cath Negative (Negative); Leukocyte Esterase,Cath Negative (Negative); Nitrate,Cath Negative (Negative); PH,Urine/Cath 5.5 (5.0-8.5); Protein,Urine/Cath Negative (Negative); Urobilinogen,Cath 0.2 EU/dl (0.2)
--- NOTE | 2020-09-11 14:29 | HMH.OPNOTE ---
Date of procedure: 09/11/20 Pre-op Diagnosis:: R knee DJD Post-op Diagnosis:: R knee DJD Procedure performed:: R total knee arthroplasty (TKA) Surgeon:: Jeanna Melo MD Airline Attendant(s):: Prasanna Arguello TABULATING MACHINE MECHANIC:: César Rogers Anesthesia: MAC, regional, spinal Estimated blood loss (mL): 100 Clinical Note:: 60yo M with R knee DJD and chronic pain, rated a 5 at rest and 8 at worst, worst over the medial aspect of the knee. He has no prior injuries to the right leg that he can recall, no previous surgeries on the right knee. He underwent L TKA 04/10/20 and did very well. The right knee is beginning to decrease his quality of life and he desires surgical intervention at this time. He is able to perform his job at the same level he was previously, but by the end of the week his right knee is so painful that it takes him the entire weekend to recover and he is unable to do things that he enjoys with his family. Since his last surgery he has not developed any new medical issues. He denies chest pain or shortness of breath either at rest or with exertion. He is taking gabapentin, tramadol and naproxen daily for pain, in addition to his baseline rosuvastatin. No aspirin or anti-coagulant use. He is a non-smoker. He reports continued numbness and tingling in his arms and hands in BUE, along with chronic neck pain; these have been present for quite some time and he had cervical spine surgery scheduled to be done in December 2019, but this was cancelled when the covid-19 pandemic occurred. Pre-operative labs were within normal limits and covid antibody test negative. His MRSA nasal swab was positive so bactroban was prescribed and used by the patient BID for the past 5 days. The patient has exhausted conservative treatment for knee arthritis and his pain has become so severe that it is inhibiting his ability to perform ADLs and is adversely affecting his quality of life. I?ve discussed surgical options with the patient and have recommended total knee arthroplasty. We discussed at length the surgical technique and expected perioperative course, including length of hospitalization, need for postoperative physical therapy, use of anticoagulants, expected level of pain, and total length of recovery. I also explained the potential risks of surgery, including bleeding, infection, fracture, wound healing complications, need for revision surgery, continued pain post-operatively, DVT/PE, and risks of both general and regional anesthesia, including nerve damage, heart attack, stroke and even . The patient vocalized understanding of these risks and has agreed to proceed with surgery; informed consent was obtained. Operative findings:: Hu [employer] Nephew Journey II BCS Total Knee 7 femur 7 tibia 9mm poly 35mm x 9mm patella Operative note:: The patient was identified in pre-operative holding and the R leg signed by myself with marking pen. Consent was verified with the patient and all questions were answered. Pre-operative labs were confirmed to be within acceptable limits, and MRSA nasal swab positive. He confirms he has been using Bactroban twice daily for the past 5 days. The patient was seen by anesthesia and taken to the OR, where spinal anesthetic was administered. He was placed supine on the operative table; 2g Ancef were infused intravenously as well as 1g vancomycin. Tranexamic acid was given per protocol. Nonsterile tourniquet was placed on the upper R thigh and the leg was prepped and draped in the usual sterile fashion for knee arthroplasty. Timeout was performed, identifying the correct patient, correct procedure, and correct site. The procedure was begun by exsanguinating the R lower extremity with an Esmarch and inflating the tourniquet to 250 mmHg. A longitudinal incision was made down the anterior aspect of the R knee centered over the patella, extending from 2 fingerbreadths superior to the patella to the tibial tubercle. Subcutaneous tissue was incised down to the patellar re
--- NOTE | 2020-09-11 15:07 | HMH.PHAINT ---
Medication reconciliation completed using pharmacy claims data and patient interview.
--- NOTE | 2020-09-11 15:44 | HMH.OTEV ---
OT Inpatient Evaluation Rehab OT IP Evaluation Start: 09/11/20 08:51 Freq: ONCE Status: Complete Protocol: Document 09/11/20 15:[facility] (Rec[facility] 09/11/20 15:44 [facility] [id number] Rehab OT IP Assessment Subjective History Pt was admitted today following total right knee arthroplasty. Pt reports prior to surgery he lived at home with his . Pt claims he was completely independent with all ADL's and IADL's prior to surgery. Pt did not require AE. Pt also still drives. Pt also had a L TKA in march. Subjective I can already feel my leg. Objective Patient Orientation Person,Place,Birthday Upper Extremity Gross ROM WFL Bed Mobility bed mobility-scooting,bed mobility - supine/sit,bed mobility - rolling Assist Level Contact Guard/Hand Hold Transfer Training Sit/Stand Transfer Assist Level Contact Guard/Hand Hold Chair Transfer Ability Contact Guard/Hand Hold Chair Transfer Technique Sit to/from Ambulatory Chair Transfer Assistive Devices Rolling Walker Rehab OT IP prob,goals,plan Problems Date of Evaluation: 09/11/20 OT IP Problems Bed Mobility,Transfers,Gait, Balance,Self care,Safety Rehab Potential Rehab Potential Good Equipment Needs Assistive Devices Rolling / Wheeled Walker Plan OT intervention Plan Bed Mobility,Transfers,Gait, Balance,Self care,Safety, Therapeutic Exercise OT Plan Frequency Daily Duration LOS Discharge Goals Bed Mobility Ability Standby Assistance Sit to Stand Chair Transfer Ability Supervision/Stand by Chair Transfer Ability Supervision/Stand by Chair Transfer Technique Sit to/from Ambulatory Chair Transfer Assistive Devices Rolling Walker Feeding Ability Independent Lower Body Dressing Ability Assistance X1 Upper Body Dressing Ability Standby Assistance Bathing Ability Assistance x1 Performing Toilet Hygiene Ability Standby Assistance Overall Commode/Toilet Transfer Ability Standby Assistance Commode/Toilet Transfer Technique Sit to/from Ambulatory Discharge Plan OT Discharge Plan Pt is safe to discharge home once medically stable. Pt would benefit most from
--- NOTE | 2020-09-11 15:50 | HMH.PHAVTE ---
[facility] Pharmacy VTE Monitoring - Patient Demographics Admission date: 09/11/20 Report Date: 09/11/20 Time: 15:50 Allergies/Adverse Reactions: Patient Allergies No Known Allergies Allergy (Verified 09/11/20 08:25) Height: 1.73 m Weight: 119.351 kg Patient Problems: Current Active Problems Hyperlipidemia (Acute) Former smoker (Acute) Obesity (BMI 30-39.9) (Acute) Right knee DJD (Acute) - VTE Risk VTE Score: 3 VTE Risk Level: Low Risk - Prophylaxis VTE Prophylaxis Ordered?: Yes Types of VTE Prophylaxis: Pharmacological Pharmacologic Type: Enoxaparin
--- NOTE | 2020-09-11 16:07 | HMH.PHACONS ---
- Pharmacy Consult Date: 09/11/20 Time: 16:08 Referring provider: DR. LOMELI Reason for Consult:: VANCOMYCIN DOSING X24 HOURS Allergies and ADEs:: Allergies Allergy/AdvReac Type Severity Reaction Status Date / Time No Known Allergies Allergy Verified 09/11/20 08:25 Home Medications:: Home Medications Medication Instructions Recorded Confirmed Type Gabapentin [Neurontin 300mg 300 mg PO QID 04/10/20 09/11/20 History capsule] Acetaminophen 1,000 mg PO TID PRN 09/11/20 09/11/20 History Mupirocin [Centany] 1 applic TOPICAL BID 09/11/20 09/11/20 History Tramadol HCl [Tramadol 50mg 50 mg PO QID 09/11/20 09/11/20 History Tab] Height: 1.73 m Weight: 119.351 kg Laboratory Results:: Laboratory Results - last 24 hr 09/11/20 08:36: Blood Type A Positive, Antibody Screen Negative 09/11/20 09:58: Urine Color Yellow, Urine Appearance Clear, Urine pH 5.5, Ur Specific [place] 1.020, Urine Protein Negative, Urine Glucose (UA) Negative, Urine Ketones Negative, Urine Blood Negative, Urine Nitrate Negative, Urine Bilirubin Negative, Urine Urobilinogen 0.2, Ur Leukocyte Esterase Negative Medical History: Reports:: Hyperlipidemia Denies:: Cancer, Diabetes Mellitus Type 1, Diabetes Mellitus Type 2, Internal Pacemaker, Lung Disease, MRSA, Seizures Assessment and Plan (1) Right knee DJD Status: Acute Category: Medical Code(s): M17.11 - Unilateral primary osteoarthritis, right knee (2) Former smoker Status: Acute Category: Social Hx Code(s): Z87.891 - Personal history of nicotine dependence (3) Hyperlipidemia Status: Acute Category: Medical Code(s): E78.5 - Hyperlipidemia, unspecified (4) Obesity (BMI 30-39.9) Status: Acute Category: Medical Code(s): E66.9 - Obesity, unspecified - Assessment and plan all Dx Assessment and Plan for all problems:: PATIENT RECEIVED VANCOMYCIN 2250 MG X1 DOSE PREOP. FOR 24 HOURS POST OP COVERAGE, RECOMMEND CONTINUING WITH VANCOMYCIN 2000 MG Q12H X2 DOSE STARTING AT 2100 TONIGHT.
--- NOTE | 2020-09-11 16:11 | HMH.PTEV ---
Physical Therapy Evaluation Rehab PT IP Evaluation Start: 09/11/20 08:51 Freq: ONCE Status: Active Protocol: Document 09/11/20 15:00 KRISTIAN (Rec: 09/11/20 16:11 LINDSAYALEXUS [id number]) Subjective/History History History This is the initial IP PT evaluation for Trav Su. Pt is a 60 y/o male admitted to obs s/p R TKA. Subjective Subjective Pt reports nerve block is wearing off already and can move his leg - does c/o some mild numbness Rehab PT IP Eval Objective Appearance Patient Behavior Appropriate,Cooperative Patient Orientation Person,Place,Time Difficulty following instructions none Speech Pattern Clear,Appropriate Ambulation Patient Able to Ambulate Yes Ambulation Observation IP General Gait Pattern Observation Antalgic Gait Ambulation Distance (feet) 5 Ambulation Assistive Device Standard Walker Ambulation Ability Supervision/Stand by Balance Ability to Arise Able, uses arms to help Sitting Balance Steady, safe Standing Balance Steady, wide stance Dynamic Sitting Balance Ability Normal Dynamic Standing Balance Ability Fair Transfers Bed Transfer Ability Independent Chair Transfer Ability Independent Sit to Stand Bed Transfer Ability Supervision/Stand by,Contact Guard/Hand Hold Sit to Stand Chair Transfer Ability Supervision/Stand by,Contact Guard/Hand Hold Rehab PT IP prob,goals,plan Problems Date of Evaluation: 09/11/20 PT IP Problems Transfers,Gait Rehab Potential Rehab Potential Good Equipment Needs Assistive Devices Rolling / Wheeled Walker Plan PT Intervention Plan Transfers,Gait,Therapeutic Exercise PT Plan Frequency BID Duration LOS Discharge Goals Bed Transfer Ability Independent Sit to Stand Chair Transfer Ability Supervision/Stand by Ambulation Assistive Device Standard Walker Ambulation Distance (feet) 5 Discharge Plan PT Discharge Plan pt to dc once medically stable and report for OPPT G -code Required No Eval Complexity Eval Charge Codes 65724 - Low Complexity PHYSICIAN CERTIFICATION: I certify the specified therapy services for Trav Su are required, authorized, and reviewed every 30 days.
[2020-09-11 17:50] LABS: Bacteria,Urine/Cath TRACE /lpf; RBC,Urine/Cath Occasional # /hpf (0-3); WBC,Urine/Cath Occasional #/hpf (0-3)
--- NOTE | 2020-09-11 18:01 | P.PN_ITS ---
[facility] [place] Anesthesia Record Part I Intake, IV Amount: 1,400 Estimated blood loss (mL): 100 Urine output (mL): 0 (NM) Blood Products used (#): none Blood Pressure: 132/91 SaO2: 94 Pulse Rate: 89 Respiratory Rate: 16 Temperature: 98.1 F Patient is:: Awake, Stable Stable to PACU at:: 13:58
--- NOTE | 2020-09-11 18:01 | HMH.ANESII ---
[facility] Anesthesia Record Part II Discharge Time: 14:28 Destination: Medical Surgical Department PACU nurse assessment reviewed?: Yes Patient Condition:: Good Anesthesia Complications:: None Swallowing reflex intact?: Yes Cyanosis?: No Blood Pressure: 115/78 Pulse Rate: 82 Temperature: 98.1 F Mental Status: Alert & Oriented Pain level:: 0 Nausea and/or vomitting:: None Intake, IV Amount: 0
--- NOTE | 2020-09-11 20:36 | PC.NURSE ---
PATIENT A&O X4, LUNGS CLEAR, PULSES EQUAL. PATIENT UP TO CHAIR AFTER ARRIVING ON FLOOR WITH HELP FROM PT. PATIENT UP TO CHAIR FOR SEVERAL HOURS. PATIENT BACK IN BED AT 1800. THIS RN APPLIED ICE PACKS TO RIGHT KNEE AND ATTACHED SCUD TO LEFT LEG. PATIENT TOLERATED WELL. PATIENT WAS INSTRUCTED TO USE HIS IS, PATIENT VERBALIZED AN UNDERSTANDING. NO OTHER CONCERNS AT THIS TIME.
[2020-09-12] VITALS: BP 106/65; PULSE 99; RESP 20; TEMP 36.6; O2SAT 95
[2020-09-12 04:00] VITALS: BP 118/64; PULSE 93; RESP 20; TEMP 37.1; O2SAT 94
--- NOTE | 2020-09-12 04:17 | PC.NURSE ---
Pt is A&OX4. Lung sounds are clear t/o. Active bowel sounds in all 4 quads. Pt has requested pain medication for RLE pain multiple times this shift. Pt medicated per MAR with PRN meds. Rt knee dressing has remained CDI. RLE remains elevated and ice packs have been applied x2 this shift. Lt thigh-high SCUD remains in place. Pt has continued to use IS during awake hours. At best, pt can reach 2500 on IS. 20g PIV remains patent and continues to infuse LR @ 75 ml/hr. Araujo catheter remains patent and is draining clear, dark yellow urine per gravity. No other acute changes or complaints at this time. Will continue to monitor.
[2020-09-12 05:00] VITALS: BMI 40.2
[2020-09-12 07:26] LABS: Chloride 104 mmol/L (98-107)
[2020-09-12 07:27] LABS: Potassium 4.5 mmoL/L (3.5-5.1); Sodium 135 mmol/L (136-145)
[2020-09-12 07:30] LABS: Anion Gap 11.5 mEq/L (5-15); Blood Urea Nitrogen 16 mg/dl (9-20); Calcium 8.7 mg/dl (8.4-10.2); Carbon Dioxide 24 mmol/L (22.0-30.0); Creatinine Clearance Estimated 132 mL/min (50-200); Estimated Glomerular Filt Rate 98 ml/min (>60); GFR (African American) 119 ML/MIN (>60); Glucose 167 mg/dl (74-100)
[2020-09-12 07:35] LABS: Basophils % 0.1 % (0.1-2.0); Eosinophils % 0.1 % (0.1-12.0); Hematocrit 36.2 % (42.0-52.0); Hemoglobin 11.6 g/dL (14.1-18.0); Lymphocytes # 0.8 K/mm3 (0.7-4.5); Lymphocytes % 7.2 % (10-50); Mean Corpuscular Volume 90.7 fl (80-94); Monocytes # 0.8 K/mm3 (0.1-1.0); Monocytes % 6.8 % (1.7-9.3); Neutrophils # 9.8 K/mm3 (1.8-7.8); Neutrophils % 85.8 % (37.0-80.0); Platelet Count 329 K/mm3 (142-424); Red Blood Count 3.99 M/mm3 (4.60-6.20); Red Cell Distribution Width 15.6 % (11.5-17.5); White Blood Count 11.5 K/mm3 (4.8-10.8)
[2020-09-12 07:43] LABS: MANUAL DIFFERENTIAL MANUAL DIFFERENTIAL (MANUAL DIFF)
[2020-09-12 08:00] VITALS: BP 172/84; PULSE 108; RESP 18; TEMP 36.8; O2SAT 96
--- NOTE | 2020-09-12 08:40 | P.PN_ITS ---
Internal Medicine - PN: Subj *Date: 09/12/20 *Time: 08:40 Interval history: FAMILY MEDICINE NOTE: Trav is a 60-year-old white male who has generally been healthy other than chronic low back pain and degenerative joint disease. He underwent right total knee arthroplasty yesterday per Dr. Melo. This morning he has no unusual complaints. He has appropriate postoperative pain. He has been up in the chair and tolerated this well. He is anticipating discharge today. Exam Vital signs and Labs for Last 24 Hours: Temp Pulse Resp BP Pulse Ox 98.8 F 93 H 20 118/64 94 L 09/12/20 04:00 09/12/20 04:00 09/12/20 04:00 09/12/20 04:00 09/12/20 04:00 Laboratory Results - last 24 hr 09/11/20 08:36: Blood Type A Positive, Antibody Screen Negative 09/11/20 09:58: Urine Color Yellow, Urine Appearance Clear, Urine pH 5.5, Ur Specific [place] 1.020, Urine Protein Negative, Urine Glucose (UA) Negative, Urine Ketones Negative, Urine Blood Negative, Urine Nitrate Negative, Urine Bilirubin Negative, Urine Urobilinogen 0.2, Ur Leukocyte Esterase Negative, Urine RBC Occasional, Urine WBC Occasional, Urine Bacteria Trace 09/12/20 06:40: WBC 11.5 H, RBC 3.99 L, Hgb 11.6 L, Hct 36.2 L, MCV 90.7, MCH 29.0, MCHC 32.0, RDW 15.6, Plt Count 329, MPV 9.0, Neut % (Auto) 85.8 H, Lymph % (Auto) 7.2 L, [place] % (Auto) 6.8, Eos % (Auto) 0.1, Baso % (Auto) 0.1, Neut # (Auto) 9.8 H, Lymph # (Auto) 0.8, [place] # (Auto) 0.8, Eos # (Auto) 0.0, Baso # (Auto) 0.0 09/12/20 06:40: Sodium 135 L, Potassium 4.5, Chloride 104, Carbon Dioxide 24, Anion Gap 11.5, BUN 16, Creatinine 0.80, Estimated Creat Clear 132, Estimated GFR 98, Est GFR ( Amer) 119, Glucose 167 H, Calcium 8.7 I & O for Last 24 hours: Intake & Output 09/09/20 09/10/20 09/11/20 09/12/20 11:59 11:59 11:59 11:59 Intake Total 2920 / 2920 Output Total 1105 / 1105 Balance 1815 / 1815 Weight 250 lb 265 lb 7 oz Narrative: He is lying comfortably in bed. He appears in no distress. Color is normal. Lungs are clear to auscultation. Heart is regular with no ectopy. Abdomen is obese, soft, nondistended with no unusual tenderness. Extremities show no edema or calf tenderness. Araujo catheter in place draining clear yellow urine Assessment and Plan (1) Right knee DJD Status: Acute Category: Medical Code(s): M17.11 - Unilateral primary osteoarthritis, right knee (2) Former smoker Status: Acute Category: Social Hx Code(s): Z87.891 - Personal history of nicotine dependence (3) Hyperlipidemia Status: Acute Category: Medical Code(s): E78.5 - Hyperlipidemia, unspecified (4) Obesity (BMI 30-39.9) Status: Acute Category: Medical Code(s): E66.9 - Obesity, unspecified (5) Chronic low back pain Status: Acute Category: Medical Code(s): M54.5 - Low back pain; G89.29 - Other chronic pain - Assessment and plan all Dx Assessment and Plan for all problems:: He is doing well postoperatively. Continue per Ortho recommendations and anticipate discharge later today.
[2020-09-12 11:28] LABS: Lymphocytes % 7 % (10-50); Neutrophils % 93 % (42-76); Platelet Estimate Normal; Total Cells Counted 100
[2020-09-12 11:29] LABS: RBC Morphology Normal
--- NOTE | 2020-09-12 12:38 | P.PN_ITS ---
Subjective Date: 09/12/20 Time: 12:00 Principal diagnosis: s/p R TKA Interval history: The patient is doing well this morning. Araujo has been removed. He has been OOB with PT and cleared to return home. Outpatient PT session is scheduled for this afternoon at 4pm. Pain is significant, not adequately controlled on percocet 5/325mg. After his L TKA he took percocet 10/325mg for the first week. Lovenox started this morning, antibiotics have been given. Tolerating PO intake well. No complaints of chest pain, shortness of breath, or numbness/tingling in the R foot. PN: Obj Ex Vital signs: Temp Pulse Resp BP Pulse Ox 98.3 F 108 H 18 172/84 H 96 09/12/20 08:00 09/12/20 08:00 09/12/20 08:00 09/12/20 08:00 09/12/20 08:00 - Constitutional no acute distress - Routine HEENT Exam Head: Present: normocephalic Eye: Present: EOMI ENT: Present: mucous membranes moist - Routine Neck Exam Present: supple, trachea midline - Routine Respiratory Exam Absent: respiratory distress, wheezes - Routine Cardiovascular Exam Present: RRR - Routine Abdominal Exam Present: soft. Absent: tenderness - Routine Extremities Exam Comments: awake, alert, NAD R leg dressings c/d/i, no strikethrough palpable pedal pulses R foot, skin pink/warm +DF/PF/EHL RLE AROM R knee 0-90 degrees in bed SILT distally RLE in all distributions R calf soft, compressible - Routine Skin Exam Present: warm - Routine Neurological Exam Present: alert, oriented X3, moving all extremities, normal tone, vision grossly intact, hearing grossly intact, normal speech. Absent: sensory deficit, motor deficit, altered mental status - Routine Psychiatric Exam Present: normal affect - Urinary Catheter Management Araujo Cath placed during this visit: yes, but has since been removed by the nurse Urethral indwelling: Yes Insertion date: 09/11/20 Removal date: 09/12/20 Progress Note: A&P (1) Right knee DJD Status: Acute (2) Former smoker Status: Acute (3) Hyperlipidemia Status: Acute (4) Obesity (BMI 30-39.9) Status: Acute (5) Chronic low back pain Status: Acute Assessment and Plan for All Diagnoses:: 60yo M POD 1 s/p R TKA -- WBAT RLE, PT/OT while inpatient -- elevate/ice RLE; [facility] device for cryotherapy -- SCDs BLE, encourage IS 10x/hr while awake -- lovenox 40mg QD started today; after 14 days will transition to ASA -- pain control: percocet PO as needed; dilaudid IV for severe breakthrough only -- finish 24hr antibiotic prophy -- continue home medications -- dispo planning: d/c home today with OPPT scheduled for this afternoon 4pm; f/u in my office 09/24/20
--- NOTE | 2020-09-12 12:43 | HMH.DCSUM ---
General - General Admission date:: 09/11/20 Discharge date: 09/12/20 HPI HPI: 60yo M with R knee DJD and chronic pain, rated a 5 at rest and 8 at worst, worst over the medial aspect of the knee. He has no prior injuries to the right leg that he can recall, no previous surgeries on the right knee. He underwent L TKA 04/10/20 and did very well. The right knee is beginning to decrease his quality of life and he desires surgical intervention at this time. He is able to perform his job at the same level he was previously, but by the end of the week his right knee is so painful that it takes him the entire weekend to recover and he is unable to do things that he enjoys with his family. Since his last surgery he has not developed any new medical issues. He denies chest pain or shortness of breath either at rest or with exertion. He is taking gabapentin, tramadol and naproxen daily for pain, in addition to his baseline rosuvastatin. No aspirin or anti-coagulant use. He is a non-smoker. He reports continued numbness and tingling in his arms and hands in BUE, along with chronic neck pain; these have been present for quite some time and he had cervical spine surgery scheduled to be done in December 2019, but this was cancelled when the covid-19 pandemic occurred. Pre-operative labs were within normal limits and covid antibody test negative. His MRSA nasal swab was positive so bactroban was prescribed and used by the patient BID for the past 5 days. The patient underwent R TKA this 09/11/20 without complication. IVF 1400cc LR EBL 100cc UOP 300cc Hospital Course Hospital Course: Post-operatively the patient was admitted to the med/surg floor for continuing post-operative care. IV antibiotics were continued for 24 hours for standard surgical prophylaxis. Spinal wore off the night of surgery and espinoza removed afterwards, on morning of POD 1. Lovenox started POD 1. He began participating in PT/OT the afternoon of surgery and was ambulating well on POD 1; he was deemed safe for d/c home by PT/OT on POD 1. Vitals remained stable with no fevers/chills, no hypotension or tachycardia. Pain was not adequately controlled with Percocet 5/325mg so this was increased to 10/325mg; he was discharged on this after his L TKA. He was medically and surgically appropriate for discharge home on POD 1, with outpatient PT scheduled that afternoon at 4pm. First dressing change will be done then, and he will be seen in the office on 09/24/20. He was provided with prescriptions for percocet and lovenox, in addition to written post-op discharge instructions. Objective Vital signs: Temp Pulse Resp BP Pulse Ox 98.3 F 108 H 18 172/84 H 96 09/12/20 08:00 09/12/20 08:00 09/12/20 08:00 09/12/20 08:00 09/12/20 08:00 no acute distress - *Routine HEENT Exam Head: Present: normocephalic Eye: Present: EOMI ENT: Present: mucous membranes moist - *Routine Neck Exam Present: supple, trachea midline - *Routine Respiratory Exam Absent: respiratory distress, wheezes - *Routine Abdominal Exam Present: soft - *Routine Extremities Exam Comments: awake, alert, NAD R leg dressings c/d/i, no strikethrough palpable pedal pulses R foot, skin pink/warm +DF/PF/EHL RLE AROM R knee 0-90 degrees in bed SILT distally RLE in all distributions R calf soft, compressible - *Routine Skin Exam Present: warm - *Routine Neurological Exam Present: alert, oriented X3, moving all extremities, normal tone, vision grossly intact, hearing grossly intact, normal speech. Absent: sensory deficit, motor deficit, altered mental status - Routine Psychiatric Exam Present: normal affect Results Labs on day of discharge: Labs from last 24 hours 09/12/20 09/12/20 09/11/20 06:40 06:40 09:58 WBC 11.5 H RBC 3.99 L Hgb 11.6 L Hct 36.2 L MCV 90.7 MCH 29.0 MCHC 32.0 RDW 15.6 Plt Count 329 MPV 9.0 Neut % (Auto) 85.8 H Lymph % (Auto) 7.2 L Drew
== END 2020-09-12 14:00 | disposition home or self-care (01) ==
LOC: 2ND 07:32
PROVIDERS: Admitting Provider Orthopaedic Surgery; PCP Family Medicine; Visit Provider Orthopaedic Surgery
PROC: (CPT 27447; principal; 2020-09-11 09:15)
DX: M17.11 Unilateral primary osteoarthritis, right knee (principal); G89.29 Other chronic pain; M54.5 Low back pain; I10 Essential (primary) hypertension; E78.5 Hyperlipidemia, unspecified; Z79.899 Other long term (current) drug therapy
CPT/HCPCS: 27447; 36415; 73560; 80048; 81001; 85007; 85025; 86850; 97110; 97161; 97165; 97530; C1776; G0378; J3370

== ENCOUNTER → 2020-09-24 13:21 | Outpatient (CLI) | payer BC, SELFPAY ==
--- NOTE | 2020-09-24 13:29 | XR_ITS ---
PROCEDURE: XR KNEE LT 3V CLINICAL INDICATION: LT TKA FU Follow-up total knee replacement COMPARISON: DX XR KNEE LT 3V from 06/21/2020 CR XR KNEE RT 4V from 08/10/2020 CR XR KNEE RT 4V from 09/03/2020 CR XR KNEE RT 2V from 09/11/2020 FINDINGS: Status post total knee replacement with good alignment and no evidence of orthopedic complication. There is an old fracture of the distal femur. Other findings:None. IMPRESSION: No change status post total knee replacement with good alignment Dictated by: Robbie Terrell MD 09/24/2020 14:22 Robbie Terrell MD in [place] 09/24/2020 14:22
--- NOTE | 2020-09-24 13:29 | XR_ITS ---
PROCEDURE: XR KNEE RT 3V CLINICAL INDICATION: s/p R TKA Follow-up total knee replacement COMPARISON: DX XR KNEE LT 3V from 06/21/2020 CR XR KNEE RT 4V from 08/10/2020 CR XR KNEE RT 4V from 09/03/2020 CR XR KNEE RT 2V from 09/11/2020 FINDINGS: Good alignment status post total knee replacement. There remains some minimal soft tissue gas in the retropatellar region versus artifact from the patient's garment. Bandage artifact noted over the anterior aspect of the knee. IMPRESSION: Status post total knee replacement with good alignment. Dictated by: Robbie Terrell MD 09/24/2020 14:23 Robbie Terrell MD in [place] 09/24/2020 14:23
== END ==
PROVIDERS: PCP Family Medicine; Visit Provider Orthopaedic Surgery
DX: M25.561 Pain in right knee (principal); M25.562 Pain in left knee; Z96.651 Presence of right artificial knee joint
CPT/HCPCS: 73562

== ENCOUNTER → 2020-10-11 09:58 | Outpatient (POV) | payer BC, SELFPAY ==
[2020-10-11 10:20] VITALS: BP 142/77; PULSE 71; RESP 18; TEMP 36.8; O2SAT 98; BMI 38.0
--- NOTE | 2020-10-11 10:20 | HMH.PAINSOAP ---
[facility] Pain Management SOAP Note Subjective:: Patient is a pleasant 60-year-old white male who presents today for follow-up. He is being treated for degenerative disc disease cervical spine with cervical radiculopathy symptoms. Patient is managed with oral medications of tramadol 50 mg 1 tablet p.o. 4 times daily, gabapentin 300 g 1 tablet p.o. 4 times daily, Flexeril 10 mg 1 tablet p.o. 3 times daily. He denies any side effects to the medication. He has also taken some Percocet recently due to a left knee replacement. He has also had a right knee replacement with Dr. Leahy. He says he is doing well overall. He is using walker for ambulation today. Patient rates his pain a 4 out of 10 today. Review of Systems General: No recent weight changes, no fever, no sleep disturbances Respiratory: No cough, no shortness of air, no recurring pulmonary infections Cardiovascular/peripheral vascular: No chest pain, no palpitations, no edema, no shortness of breath Gastrointestinal: No new onset incontinence, normal bowel movements reported Genitourinary: No new onset incontinence Musculoskeletal: Pain, knee pain Psychiatric: Normal mood/affect Neurological: [Denies weakness in extremities], [denies balance issues] Objective:: Physical exam General: Alert and oriented x3, no acute distress, pleasant and cooperative, [on room air] Lungs: Respirations even and unlabored, symmetrical chest expansion Eyes: PERRL Musculoskeletal: Flexion and extension of cervical and lumbar spine somewhat guarded secondary to pain, deep tendon reflexes normal, strength in upper and lower extremities [5/5], [abnormal gait noted] Neurological: Speech clear, 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 I have advised him to use caution with taking tramadol and Percocet together. He is aware. He will be continued on his tramadol 50 mg 1 tablet p.o. 4 times daily, gabapentin 300 mg 1 tablet p.o. 4 times daily, and Flexeril 10 mg 1 tablet p.o. 3 times daily. We will give the patient 6 months worth medication so that he does not have to come into the clinic during the pandemic. We will plan to follow-up with him in 6 months unless he has any issues before then. He has been instructed to contact clinic if he has any concerns before his next appointment. The patient and I specifically discussed risk factors for COVID19. These risks include, but are not limited to age greater than 60, heart or lung disease, diabetes, immunosuppression, and travel. We also discussed NSAIDs may worsen COVID19 infection or symptoms. Patient should not use NSAIDs to treat COVID19 signs or symptoms. Patient was also informed that any type of corticosteroid of any form (oral or injection) will decrease the patient's immune system response and may increase the likelihood of COVID19 infection and symptoms[address] Dr. Dickinson has reviewed this note and agrees with this plan of care. This note was dictated using voice recognition software and make contain errors or omissions. [facility] History I have reviewed the patient's past medical history: Yes Medical History: Reports:: Hyperlipidemia Denies:: Cancer, Diabetes Mellitus Type 1, Diabetes Mellitus Type 2, Internal Pacemaker, Lung Disease, MRSA, Seizures *Have you ever received a pneumonia vaccine?: No *Have you received a flu vaccine this season?: No Other Medical History: Denies: Blood Transfusion Reaction Laterality Cases: Left: Arthroscopy Knee Other Surgeries: Yes: Colonoscopy, Other. No: Pacemaker Amputation: No Fractures: Yes (Left leg sx) - *Social History Smoking Status: Former smoker Tobacco Type: cigarettes Alcohol Intake: never Alcohol Intake Frequency:: 3 or more drinks per day Substance Use Type: denies
--- NOTE | 2020-10-11 11:12 | HMH.PAINSOAP ---
[facility] Pain Management SOAP Note Subjective:: She is a 60-year-old white male who presents today for follow-up. He has been treated for left hip and left groin pain. Patient says he does have intermittent mid to low back pain, however, most of his pain is in his left hip. Patient says that his pain is intermittent. He says some days his pain is not there at all, and other days he has pain so severe he is unable to walk. Today he rates his pain a 4 out of 10. He says that he seems to see the worst pain following long periods of walking and standing. He says that leaning forward does not give him any relief. He does say the pain does not get any worse leaning forward as well. He did discuss Vertiflex implant, however, he is reluctant to proceed with the procedure. He would like to undergo a left hip MRI before deciding on plan of care. He has tried and failed conservative therapy for greater than 6 weeks. He is also tried injective therapy with no relief. He continues with a home stretching program. Patient has taken anti-inflammatories with little to no relief. Patient denies any heaviness or weakness in his legs. Review of Systems General: No recent weight changes, no fever, no sleep disturbances Respiratory: No cough, no shortness of air, no recurring pulmonary infections Cardiovascular/peripheral vascular: No chest pain, no palpitations, no edema, no shortness of breath Gastrointestinal: No new onset incontinence, normal bowel movements reported Genitourinary: No new onset incontinence Musculoskeletal: Intermittent low mid to low back pain, left hip pain, left groin pain Psychiatric: Normal mood/affect Neurological: [Denies weakness in extremities], [denies balance issues] Objective:: Physical exam General: Alert and oriented x3, no acute distress, pleasant and cooperative, [on room air] Lungs: Respirations even and unlabored, symmetrical chest expansion Eyes: PERRL Musculoskeletal: Flexion and extension of lumbar spine somewhat guarded secondary to pain, deep tendon reflexes normal, strength in upper and lower extremities [5/5], [abnormal gait noted] Neurological: Speech clear, furniture refinisher equal, no gross sensory deficit Assessment:: Degenerative disc disease lumbar spine with lumbar radiculopathy symptoms, spinal stenosis, left hip pain Plan:: Patient would like to undergo a left hip MRI before proceeding with any type of further treatment. We will schedule him for an MRI of his left hip and see him back in the clinic to reevaluate his symptoms and discuss the MRI. He has been instructed to contact the clinic if he has any concerns before his next appointment. The patient and I specifically discussed risk factors for COVID19. These risks include, but are not limited to age greater than 60, heart or lung disease, diabetes, immunosuppression, and travel. We also discussed NSAIDs may worsen COVID19 infection or symptoms. Patient should not use NSAIDs to treat COVID19 signs or symptoms. Patient was also informed that any type of corticosteroid of any form (oral or injection) will decrease the patient's immune system response and may increase the likelihood of COVID19 infection [address] symptoms[address]. Dickinson has reviewed this note and agrees with this plan of care. This note was dictated using voice recognition software and make contain errors or omissions. [facility] History Medical History: Reports:: Hyperlipidemia Denies:: Cancer, Diabetes Mellitus Type 1, Diabetes Mellitus Type 2, Internal Pacemaker, Lung Disease, MRSA, Seizures *Have you ever received a pneumonia vaccine?: Yes *Have you received a flu vaccine this season?: Yes Other Medical History: Denies: Blood Transfusion Reaction Laterality Cases: Left: Arthroscopy Knee Other Surgeries: Yes: Colonoscopy, Other. No: Pacemaker Amputation: No Fractures: Yes (Left leg sx) - *Social History Smoking Status: Former smoker Tobacco Type: cigarettes Alcohol Intake: never Alcoho
== END ==
PROVIDERS: PCP Family Medicine; Visit Provider Clinical Nurse Specialist Family Health
DX: M50.10 Cervical disc disorder with radiculopathy, unspecified cervical region (principal); M48.062 Spinal stenosis, lumbar region with neurogenic claudication; M25.569 Pain in unspecified knee
CPT/HCPCS: 99212

== ENCOUNTER → 2020-11-30 08:22 | Outpatient (CLI) | payer BC, SELFPAY ==
--- NOTE | 2020-11-30 08:28 | XR_ITS ---
PROCEDURE: XR KNEE RT 3V CLINICAL INDICATION: s/p R TKA COMPARISON: CR XR KNEE RT 3V from 09/24/2020 FINDINGS: The femoral prosthesis is in good alignment and apposition to the tibial plateau prosthesis. The semiopaque plug is seen undersurface of the patella. There is no definite effusion. IMPRESSION: Status post total knee replacement with good alignment Dictated by: Dr. León Lema MD 11/30/2020 09:30 Dr. León Lema MD in [place] 11/30/2020 09:30
== END ==
PROVIDERS: PCP Family Medicine; Visit Provider Orthopaedic Surgery
DX: Z96.659 Presence of unspecified artificial knee joint (principal)
CPT/HCPCS: 73562

== ENCOUNTER 2020-12-13 08:00 | Outpatient (RCR) | payer BC, SELFPAY ==
--- NOTE | 2020-09-12 15:22 | HMH.PTOPEV ---
PT Outpatient Evaluation Rehab PT Outpatient Evaluation Start: 09/12/20 15:10 Freq: Status: Active Protocol: Document 09/12/20 15:10 LEONARDTORIN (Rec: 09/12/20 15:17 LEONARDBRIANAANNABEL [id number]) Electronically Signed By Pablo Joseph, PT 09/12/20 15:10 Outpatient Therapy Subjective History Subjective History Patient is a 60 year old male presenting to outpatient PT with reports of R post- surgical knee pain S/P R TKA performed 09/11/20 (1 day S/P) . Patient reports chronic knee pain lasting approx 6 month prior to Sx. Patient underwent L TKA 03/2020. Patient was educated on HEP, as well as signs of infection. Comorbidities include hx of L TKA, L femur ORIF and HL. Chief Complaint Pain,Stiff,Swelling Symptom Type Sharp Symptoms Relieved By Rest/Positioning,Ice, Prescription Meds,Elevation Symptoms Aggravated By Standing,Physical Activity, Walking Prior Functional Limitations Standing,Walking Current Functional Limitations Housework,Dressing,Driving, Sleeping,Standing,Squatting, Recreation Activity,Walking, Stairs,Balance Symptom Description Constant but Variable Level of pain today (0-10) 10 Pain scale - at its best (0-10) 9 Pain scale - at its worst (0-10) 10 Hip/Knee Eval Gait Observation General Gait Pattern Observation Antalgic Gait,Decrease Weight Bear (R) Assistive Device Assistive Devices Wheelchair Palpation Tenderness right Knee Palpation Finding Tenderness Knee Palpation Overall Comment Med/lat compartment 4/4 MMT Hip Strength Reason Not Measured Orthopedic Precautions Knee Strength Reason Not Measured Orthopedic Precautions ROM Hip ROM Reason Not Measured Within Functional Limits Knee Extension Active Range of Motion ( -13 degrees) Knee Extension Passive Range of Motion ( -8 degrees) Knee Flexion Active Range of Motion ( 95 degrees) Knee Flexion Passive Range of Motion ( 107 degrees) Outpatient Therapy Assessment Impairments Problems/Impairmments Palpation Tenderness,Impaired Range of Motion,Impaired Strength,Impaired Endurance, Impaired Transfers,Impaired
--- NOTE | 2020-10-26 08:37 | HMH.RHREAS ---
Rehab Reassessment Rehab OP Re-assessment Start: 10/26/20 08:31 Freq: Status: Active Protocol: Document 10/26/20 08:31 [place] (Rec: 10/26/20 08:37 ELPEPPERDUSTIN [id number]) Electronically Signed By Maik Cueto, PT 10/26/20 08:31 Rehab Re-assessment Subjective Subjective PT REPORTS STEADY IMPROVEMENT W/R LE/KNEE ROM AND STRENGTH, HOWEVER, STILL REPORTS LINGERING SURGICAL INCISION HEALING. 'IT'S CERTAINLY BETTER THAN IT WAS, BUT THERE' S STILL TWO SPOTS THAT NEED TO CLOSE UP'. PT REPORTS 2-4/10 R KNEE PAIN ON VAS, AND FEELS 50% BETTER OVERALL SINCE I EVAL Objective Objective Notes AROM: R KNEE FLX 2-110 PROM: R KNEE FLX 0-115 MMT: R HIP FLX 4-4+/5, R QUAD 4/5, R HS 4/5, R HIP IR/ER 4/5 , R DF 4+/5 TTP: R KNEE MEDIAL JT LINE 2-3 /4, LATERAL JT LINE 2/4 Assessment Progress Assessment Progressing as Expected Assessment Notes PT W/IMPROVED ROM, STRENGTH, AND TTP Patient goals met STG'S /4 LTG'S 10/27 Goals Not Met STG'S 11/22, LTG'S 05/27 Plan Plan PT TO CONT. W/SKILLED P.T. TO MAKE FURTHER IMPROVEMENTS IN R KNEE ROM, STRENGTH, AND TTP TO ALLOW FOR OPTIMAL FUNCTION Frequency of Therapy 1-2X/WK Duration of therapy 4-6 WKS Time and Billing Re-Eval Time 15 Re-Eval Billing Units 1 PHYSICIAN CERTIFICATION: I certify the specified therapy services for Trav Su are required, authorized, and reviewed every 30 days.
== END 2020-12-13 08:05 | disposition home or self-care (01) ==
LOC: PT 08:00
PROVIDERS: Visit Provider Orthopaedic Surgery
DX: M25.561 Pain in right knee (principal); Z96.651 Presence of right artificial knee joint
CPT/HCPCS: 97010; 97014; 97016; 97110; 97140; 97163; 97164; G0283

== ENCOUNTER → 2021-02-13 14:22 | Outpatient (CLI) | payer BC, SELFPAY ==
--- NOTE | 2021-02-13 14:27 | XR_ITS ---
PROCEDURE: XR PELVIS 1-2V CLINICAL INDICATION: knee pain COMPARISON: No exams were available for comparison TECHNIQUE: XR Pelvis AP View FINDINGS: Osteoarthritic changes changes of the hips and degenerative changes in the lower lumbar spine and lumbosacral junction. No fracture or dislocation. No lytic or blastic change. No lytic or blastic change. IMPRESSION: Degenerative changes otherwise negative Dictated by: Robbie Terrell MD 02/13/2021 15:17 Robbie Terrell MD in [place] 02/13/2021 15:17
--- NOTE | 2021-02-13 14:27 | XR_ITS ---
PROCEDURE: XR KNEE RT 3V CLINICAL INDICATION: RT knee pain COMPARISON: CR XR KNEE RT 2V from 09/11/2020 CR XR KNEE LT 3V from 09/24/2020 CR XR KNEE RT 3V from 09/24/2020 CR XR KNEE RT 3V from 11/30/2020 FINDINGS: No fracture or dislocation. No lytic or blastic change. There is normal mineralization. Status post total knee replacement. There is good alignment with no evidence of prosthetic complication. There is increased density in the suprapatellar region suggesting knee joint effusion. Other findings:None. IMPRESSION: Good alignment status post total knee replacement with suspected suprapatellar effusion Dictated by: Robbie Terrell MD 02/13/2021 15:18 Robbie Terrell MD in [place] 02/13/2021 15:18
== END ==
PROVIDERS: PCP Family Medicine; Visit Provider Orthopaedic Surgery
DX: M25.561 Pain in right knee (principal); Z96.651 Presence of right artificial knee joint
CPT/HCPCS: 72170; 73562

== ENCOUNTER → 2021-03-28 15:48 | Outpatient (CLI) | payer BC, SELFPAY ==
--- NOTE | 2021-03-28 15:52 | XR_ITS ---
PROCEDURE: XR KNEE LT 3V CLINICAL INDICATION: s/p LT TKA COMPARISON: CR XR KNEE LT 3V from 09/24/2020 CR XR KNEE RT 3V from 09/24/2020 CR XR KNEE RT 3V from 11/30/2020 CR XR KNEE RT 3V from 02/13/2021 FINDINGS: Status post total knee arthroplasty on the left. The prosthesis is in good alignment and position. There is an old fracture of the distal femur. Other findings:None. IMPRESSION: Good alignment status post total knee prosthesis placement Dictated by: Robbie Terrell MD 03/28/2021 16:19 Robbie Terrell MD in [place] 03/28/2021 16:19
--- NOTE | 2021-03-28 15:52 | XR_ITS ---
PROCEDURE: XR KNEE RT 3V CLINICAL INDICATION: s/p RT TKA COMPARISON: CR XR KNEE LT 3V from 09/24/2020 CR XR KNEE RT 3V from 09/24/2020 CR XR KNEE RT 3V from 11/30/2020 CR XR KNEE RT 3V from 02/13/2021 FINDINGS: Good alignment status post total knee arthroplasty on the right. Prosthesis is in good alignment and position. No evidence of orthopedic complication Other findings:None. IMPRESSION: S/p total knee arthroplasty on the right with good alignment Dictated by: Robbie Terrell MD 03/28/2021 16:20 Robbie Terrell MD in [place] 03/28/2021 16:20
== END ==
PROVIDERS: PCP Family Medicine; Visit Provider Orthopaedic Surgery
DX: Z96.659 Presence of unspecified artificial knee joint (principal)
CPT/HCPCS: 73562

== ENCOUNTER → 2021-03-29 12:09 | Outpatient (CLI) | payer BC, SELFPAY ==
[2021-03-29 12:23] LABS: Basophils % 0.5 % (0.1-2.0); Eosinophils # 0.1 K/mm3 (0.0-0.4); Eosinophils % 0.8 % (0.1-12.0); Hematocrit 39.6 % (42.0-52.0); Hemoglobin 13.7 g/dL (14.1-18.0); Lymphocytes # 2.1 K/mm3 (0.7-4.5); Lymphocytes % 34.5 % (10-50); Mean Corpuscular HGB Conc 34.7 g/dL (31.8-35.4); Mean Corpuscular Hemoglobin 30.1 pg (27.0-31.2); Mean Corpuscular Volume 86.8 fl (80-94); Mean Platelet Volume 7.1 fl (7.4-10.4); Monocytes # 0.5 K/mm3 (0.1-1.0); Monocytes % 7.7 % (1.7-9.3); Neutrophils # 3.4 K/mm3 (1.8-7.8); Neutrophils % 56.5 % (37.0-80.0); Platelet Count 363 K/mm3 (142-424); Red Blood Count 4.56 M/mm3 (4.60-6.20); Red Cell Distribution Width 13.4 % (11.5-17.5); White Blood Count 6.1 K/mm3 (4.8-10.8)
[2021-03-29 12:58] LABS: C-Reactive Protein 1.4 mg/L (0-4)
[2021-03-29 13:22] LABS: Erythrocyte Sedimentation Rate 25 mm/hr (0-20)
== END ==
PROVIDERS: Visit Provider Orthopaedic Surgery
DX: Z96.659 Presence of unspecified artificial knee joint (principal)
CPT/HCPCS: 36415; 85025; 85651; 86140

== ENCOUNTER 2021-04-04 11:47 | Emergency (ER) | payer BC, SELFPAY ==
[2021-04-04 11:49] VITALS: BP 173/96; PULSE 88; RESP 14; TEMP 36.7; O2SAT 97; BMI 38.0
[2021-04-04 12:00] VITALS: BP 175/95; PULSE 86; RESP 16; TEMP 36.7; O2SAT 97
--- NOTE | 2021-04-04 12:06 | HMH.EDGENADL ---
ED Disposition Clinical Impression: Elevated blood pressure reading Disposition: Home, Self-Care Condition on Discharge: Good Instructions: DI for High Blood Pressure Referrals: Piero Arteaga MD [Primary Care Provider] - 04/05/21 - Critical Care Critical Care Time: No Attestation: On 04/04/21, the high probability of a clinically significant, sudden or life threatening deterioration of the following system(s) required my full and direct attention, intervention and personal management. The time I documented below is in addition to time spent performing reported procedures but includes the following listed in this critical care notation. Medical Decision Making - Medical Records Medical records reviewed: Yes: I reviewed the patient's medical records. 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 He had some dull head pressure, but not severe headache that would prompt imaging CT head to look for clinically significant subarachnoid hemorrhage. Patient is also obese, likely contributing to his elevated blood pressure. He has no chest pain or symptoms of ACS. Patient agreeable to close follow-up with his primary care doctor, Dr. Arteaga to consider medication for blood pressure, though patient may need to keep a log of his blood pressure while not at work to get more accurate readings when he is not in pain, in the heat, as he reports no known history of blood pressure problems. General Adult HPI - General Stated complaint: elevated BP, head pressure Time Seen by Provider: 04/04/21 12:06 Mode of Arrival: Ambulatory Source of Information: Patient Limitations: No Limitations - History of Present Illness HPI narrative: This is a 60-year-old male with a past medical history significant for chronic back and right knee pain who presents to the emergency department for evaluation of elevated blood pressure noted today while at work. Patient states that he has been having increased right knee pain since knee remote knee replacement, complicated by infection (he takes tramadol, gabapentin x 3yrs but thinks it is not working now). 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 He was at work today, checked his blood pressure because of a dull sensation of head pressure, now resolved. He got several different readings at work with the highest systolic reading of 202. He denies any chest pain or difficulty breathing. Headache was not severe and was not the worst just headache of his life, now resolved. No lateralizing motor or sensory changes, no visual chnages. He has no known history of elevated blood pressure. - Related Data Home Medications Medication Instructions Recorded Confirmed Gabapentin [Neurontin 300mg 300 mg PO QID 04/10/20 03/29/21 capsule] Previous Rx's Medication Instructions Recorded Enoxaparin Sodium [Lovenox 40 mg SQ DAILY 14 Days syringe 09/12/20 40mg/0.4mL syringe] meloxicam 15 mg tablet 15 mg PO DAILY PRN #30 tab 11/30/20 oxycodone-acetaminophen 5 mg-325 1 tab PO TID PRN #20 tab 11/30/20 mg tablet Allergies Allergy/AdvReac Type Severity Reaction Status Date / Time No Known Allergies Allergy Verified 03/29/21 11:[address] [facility] History - Hepatitis A Screen Attestation statement:: This patient has been screened for Hepatitis A risk factors. I have reviewed the patient's past medical history: Yes Medical History: Denies:: Cancer, Diabetes Mellitus Type 1, Diabetes Mellitus Typ
== END 2021-04-04 12:17 | disposition home or self-care (01) ==
PROVIDERS: Emergency Provider Emergency Medicine; PCP Family Medicine
DX: R51.9 Headache, unspecified (principal); R03.0 Elevated blood-pressure reading, without diagnosis of hypertension; M25.561 Pain in right knee; E78.5 Hyperlipidemia, unspecified; E66.9 Obesity, unspecified; Z68.38 Body mass index [BMI] 38.0-38.9, adult; Z87.891 Personal history of nicotine dependence
CPT/HCPCS: 99281

== ENCOUNTER → 2021-04-06 09:01 | Outpatient (CLI) | payer BC, SELFPAY ==
[2021-04-06 10:12] LABS: Chloride 105 mmol/L (98-107); Sodium 138 mmol/L (136-145)
[2021-04-06 10:13] LABS: Potassium 4.8 mmoL/L (3.5-5.1)
[2021-04-06 10:15] LABS: Alanine Aminotransferase 21 U/L (12-78); Albumin Level 4.6 g/dl (3.5-5.0); Albumin/Globulin Ratio 1.6 (1.1-1.8); Alkaline Phosphatase 61 U/L (38-126); Anion Gap 13.8 mEq/L (5-15); Aspartate Amino Transferase 31 U/L (17-59); Bilirubin,Total 0.5 mg/dl (0.2-1.3); Blood Urea Nitrogen 17 mg/dl (9-20); Calcium 9.3 mg/dl (8.4-10.2); Carbon Dioxide 24 mmol/L (22.0-30.0); Chol/HDL Ratio 4.4 (1-3.5); Cholesterol 235 mg/dl (140-200); Estimated Glomerular Filt Rate 137 ml/min (>60); GFR (African American) 166 ML/MIN (>60); Globulin 2.8 g/dL (1.3-3.2); Glucose 111 mg/dl (74-100); HDL Cholesterol 54 mg/dl (40-60); Total Protein,Serum 7.4 g/dl (6.3-8.2); Triglycerides 127 mg/dl (30-150); VLDL Cholesterol 25 mg/dL (0-40)
[2021-04-06 10:27] LABS: Direct LDL Cholesterol 151.17 mg/dL (100-129)
[2021-04-06 10:46] LABS: Thyroid Stimulating Hormone 1.74 uIU/mL (0.465-4.68)
== END ==
PROVIDERS: Visit Provider Family Medicine
DX: I10 Essential (primary) hypertension (principal); E78.5 Hyperlipidemia, unspecified
CPT/HCPCS: 36415; 80053; 80061; 84443

== ENCOUNTER → 2021-04-11 08:44 | Outpatient (POV) | payer BC, SELFPAY ==
[2021-04-11 09:12] VITALS: BP 185/88; PULSE 88; RESP 18; O2SAT 98; BMI 38.0
--- NOTE | 2021-04-11 13:40 | HMH.PAINSOAP ---
[facility] Pain Management SOAP Note Subjective:: Patient is a 60-year-old white male who presents today for follow-up and for medication refills. Patient is being seen in the clinic for degenerative disc disease cervical and lumbar spine with cervical and lumbar radicular symptoms. Patient is complaining of low back pain today with radiation into his right knee. He says that he is scheduled to see Dr. Fernandez for revision of his right knee. Dr. Leahy did perform right knee replacement. Unfortunately, the patient says he now has infection to the area. As result, he is going to need to undergo revision. Patient says that the medication is not working at this time for his pain. He says his blood pressure is elevated due to the pain as well. He also has pain in his low back and neck area. He is managed in the clinic with gabapentin and tramadol.. He gets gabapentin 300 mg 1 tablet p.o. 4 times daily and tramadol 50 mg 1 tablet p.o. 4 times daily. Patient would like an increase in his tramadol today. We did discuss we can increase the tramadol to 2 tablets p.o. 3 times daily. We will keep his gabapentin at the current dose. His More #[id number] has been reviewed and is appropriate. Drug screen is appropriate. Review of Systems General: No recent weight changes, no fever, no sleep disturbances Respiratory: No cough, no shortness of air, no recurring pulmonary infections Cardiovascular/peripheral vascular: No chest pain, no palpitations, no edema, no shortness of breath Gastrointestinal: No new onset incontinence, normal bowel movements reported Genitourinary: No new onset incontinence Musculoskeletal: Low back pain, right knee pain Psychiatric: Normal mood/affect Neurological: [Denies weakness in extremities], [denies balance issues] Objective:: Physical exam General: Alert and oriented x3, no acute distress, pleasant and cooperative, [on room air] Lungs: Respirations even and unlabored, symmetrical chest expansion Eyes: PERRL Musculoskeletal: Flexion and extension of [] lumbar spine somewhat guarded secondary to pain, deep tendon reflexes normal, strength in upper and lower extremities [5/5], [abnormal gait noted] Neurological: Speech clear, retail analytics manager equal, no gross sensory deficit Assessment:: Degenerative disc disease lumbar spine with lumbar radiculopathy symptoms, degenerative disc disease cervical spine with cervical radiculopathy symptoms, right knee pain Plan:: We will continue the patient's gabapentin 300 mg 1 tablet p.o. 4 times daily and increase tramadol to 50 mg 2 tablets p.o. 3 times daily. We will give the patient a month medication and see him back in clinic in 1 month for reevaluation of symptoms. He will be planning to see Dr. Fernandez for surgical intervention to his right knee. Risks and benefits of the medication have been explained in detail to the patient. The patient has been advised to consult with his/her primary care provider and pharmacist regarding drug-drug interaction of medications currently prescribed. Patient has been prescribed a controlled substance after being counseled on the medication, medication safety, and possible side effects. MORE report has been obtained and reviewed prior to prescription and found to be appropriate. Opioid contract was reviewed and signed by the patient, and that they have agreed to all of the terms set forth by our compliance program. Patient has been instructed to contact the clinic with any concerns before the next appointment. Dr. Dickinson has reviewed this note and agrees with this plan of care. This note was dictated using voice recognition software and make contain errors or omissions. [facility] History Medical History: Reports:: Hyperlipidemia, Hypertension Denies:: Cancer, Diabetes Mellitus Type 1, Diabetes Mellitus Type 2, Internal Pacemaker, Lung Disease, MRSA, Seizures *Have you ever received a pneumonia vaccine?: Yes *Have you received a flu vaccine this season?:
== END ==
PROVIDERS: PCP Family Medicine; Visit Provider Clinical Nurse Specialist Family Health
DX: M51.16 Intervertebral disc disorders with radiculopathy, lumbar region (principal); M50.10 Cervical disc disorder with radiculopathy, unspecified cervical region; M25.561 Pain in right knee
CPT/HCPCS: 99212; G0463

== ENCOUNTER → 2021-04-17 08:13 | Outpatient (CLI) | payer BC, SELFPAY ==
--- NOTE | 2021-04-17 08:17 | CT_ITS ---
PROCEDURE: CT LUNG SCREENING CLINICAL INDICATION: H/O NICOTINE DEPENDENCE Current smoker 47 pack year smoking history COMPARISON: CT CT CHEST WO/W CON from 12/12/2019 TECHNIQUE: The exam was performed on a GE Light Speed [address] scanner using 2.90 mGy CTDI. A low dose helical CT CHEST was performed on a multi-detector scanner. All CT scans at the facility use one or more dose reduction, viz: automated exposure control, ma/kV adjustment per patient size (including targeted exams where dose is matched to indication, i.e. head), or iterative reconstruction technique. The LDCT was performed in a facility that meets the criteria for the screening program. Data regarding this exam was submitted to ACR which is an approved registry. The order for this exam indicates that it came as a result of a lung cancer screening counseling shard decision-making visit that included all the elements required of such a visit including smoking cessation. The radiologist interpreting this exam meets the CMS criteria for the LDCT lung cancer screening program. The exam is reported using the Lung-RADS classification scale and reported to the ACR registry. NOTE: This study was performed for the specific purposes of lung cancer screening and is not an alternative to diagnostic chest CT. RADIATION DOSE: CTDI vol(CT dose Index-volume) = 2.90mG DLP (Dose Length Product) = 110.72 mGcm FINDINGS: There are multiple noncalcified bilateral pulmonary nodules which appear stable compared to the previous exam. The largest nodule is in the right lower lobe anteriorly at approximately 10 mm. No new nodules are identified. No mediastinal or hilar mass or adenopathy. OTHER FINDINGS: Coronary artery calcifications. COPD changes. Scattered areas of scarring IMPRESSION: Lung-RADS Category 2 Benign Appearance or Behavior Follow-up: Continue annual screening with LDCT in 12 months Dictated by: Robbie Terrell MD 04/23/2021 09:48 Robbie Terrell MD in [place] 04/23/2021 09:48
== END ==
PROVIDERS: PCP Family Medicine; Visit Provider Family Medicine
DX: Z87.891 Personal history of nicotine dependence (principal); Z12.2 Encounter for screening for malignant neoplasm of respiratory organs
CPT/HCPCS: 71271

== ENCOUNTER → 2021-05-09 09:40 | Outpatient (POV) | payer BC, SELFPAY ==
[2021-05-09 09:50] VITALS: BP 155/84; PULSE 92; RESP 18; O2SAT 97; BMI 38.0
--- NOTE | 2021-05-09 12:58 | HMH.PAINSOAP ---
[facility] Pain Management SOAP Note Subjective:: Patient is a 60-year-old white male who presents to [facility] for follow-up and medication refills. He has been treated for degenerative disc disease cervical and lumbar spine with cervical and lumbar radiculopathy symptoms. He is managed with medications of tramadol and gabapentin in our clinic. We gave him tramadol 300 mg 1 tablet p.o. 4 times daily and tramadol 50 mg 2 tablets p.o. 3 times daily. His Coleman #[id number] has been reviewed and is appropriate. Drug screen is appropriate. Risks of medication. Patient is complaining of some worsening low back pain at this time. He says at the last visit we discussed possible 5-day dose of steroids. We did defer on steroids due to patient considering revision after a right knee replacement. He did not undergo surgery. He would like to try the steroids. He would also like as to order the next wave TENS unit for him. He says that we discussed this previously as well. Patient has low back pain with radiation into bilateral lower extremities today. He rates his pain a 6 out of 10. Review of Systems General: No recent weight changes, no fever, no sleep disturbances Respiratory: No cough, no shortness of air, no recurring pulmonary infections Cardiovascular/peripheral vascular: No chest pain, no palpitations, no edema, no shortness of breath Gastrointestinal: No new onset incontinence, normal bowel movements reported Genitourinary: No new onset incontinence Musculoskeletal: Low back pain with radiation into lower extremities Psychiatric: Normal mood/affect Neurological: [Denies weakness in extremities], [denies balance issues] Objective:: Physical exam General: Alert and oriented x3, no acute distress, pleasant and cooperative, [on room air] Lungs: Respirations even and unlabored, symmetrical chest expansion Eyes: PERRL Musculoskeletal: Flexion and extension of [] lumbar spine somewhat guarded secondary to pain, deep tendon reflexes normal, strength in upper and lower extremities [5/5], [abnormal gait noted] Neurological: Speech clear, advanced manufacturing vice president equal, no gross sensory deficit Assessment:: Degenerative disc disease cervical and lumbar spine with cervical and lumbar radiculopathy Plan:: We will order the patient a next wave unit for his lumbar spine. We will also order him prednisone 20 mg 1 tablet p.o. twice daily for 5 days. We will continue his gabapentin 300 mg 1 tablet p.o. 4 times daily and his tramadol 50 mg 2 tablets p.o. 3 times daily. We will give the patient 3 months of medication see him back in the clinic in 3 months to reevaluate patient has been instructed to contact the clinic with any concerns before the next appointment. Dr. Dickinson has reviewed this note and agrees with this plan of care. This note was dictated using voice recognition software and make contain errors or omissions. [facility] History I have reviewed the patient's past medical history: Yes Medical History: Reports:: Hyperlipidemia, Hypertension Denies:: Cancer, Diabetes Mellitus Type 1, Diabetes Mellitus Type 2, Internal Pacemaker, Lung Disease, MRSA, Seizures *Have you ever received a pneumonia vaccine?: Yes *Have you received a flu vaccine this season?: Yes Other Medical History: Denies: Blood Transfusion Reaction Laterality Cases: Bilateral: Arthroscopy Knee Other Surgeries: Yes: No Previous Surgery, Colonoscopy, Other. No: Pacemaker Amputation: No Fractures: Yes (Left leg sx) - *Social History Smoking Status: Former smoker Tobacco Type: cigarettes Alcohol Intake: former Alcohol Intake Frequency:: 3 or more drinks per day Substance Use Type: denies use *Occupational Status:: unemployed Housing: house Household Members: none *Travel in the last 8 weeks: None Family Hx:: Cancer
== END ==
PROVIDERS: Visit Provider Clinical Nurse Specialist Family Health
DX: M50.10 Cervical disc disorder with radiculopathy, unspecified cervical region (principal); M51.16 Intervertebral disc disorders with radiculopathy, lumbar region
CPT/HCPCS: 99212; G0463

== ENCOUNTER → 2021-06-22 07:37 | Outpatient (CLI) | payer BC, SELFPAY ==
[2021-06-22 08:18] LABS: Basophils # 0.1 K/mm3 (0-0.2); Basophils % 1.2 % (0.1-2.0); Eosinophils # 0.1 K/mm3 (0.0-0.4); Eosinophils % 1.3 % (0.1-12.0); Hematocrit 43.6 % (42.0-52.0); Hemoglobin 14.4 g/dL (14.1-18.0); Lymphocytes # 1.7 K/mm3 (0.7-4.5); Lymphocytes % 25.5 % (10-50); Mean Corpuscular HGB Conc 33.1 g/dL (31.8-35.4); Mean Corpuscular Hemoglobin 30.5 pg (27.0-31.2); Mean Corpuscular Volume 92.2 fl (80-94); Mean Platelet Volume 8.5 fl (7.4-10.4); Monocytes # 0.5 K/mm3 (0.1-1.0); Monocytes % 7.7 % (1.7-9.3); Neutrophils # 4.2 K/mm3 (1.8-7.8); Neutrophils % 64.2 % (37.0-80.0); Platelet Count 413 K/mm3 (142-424); Red Blood Count 4.72 M/mm3 (4.60-6.20); Red Cell Distribution Width 13.2 % (11.5-17.5); White Blood Count 6.5 K/mm3 (4.8-10.8)
[2021-06-22 10:06] LABS: Anion Gap 13.4 mEq/L (5-15); Blood Urea Nitrogen 13 mg/dl (9-20); Calcium 9.2 mg/dl (8.4-10.2); Carbon Dioxide 26 mmol/L (22.0-30.0); Chloride 102 mmol/L (98-107); Estimated Glomerular Filt Rate 98 ml/min (>60); GFR (African American) 119 ML/MIN (>60); Glucose 111 mg/dl (74-100); Potassium 4.4 mmoL/L (3.5-5.1); Sodium 137 mmol/L (136-145)
== END ==
PROVIDERS: Visit Provider Surgery
DX: Z01.812 Encounter for preprocedural laboratory examination (principal); Z20.822 Contact with and (suspected) exposure to COVID-19; K43.9 Ventral hernia without obstruction or gangrene
CPT/HCPCS: 36415; 80048; 85025; U0003

== ENCOUNTER 2021-06-25 06:48 | Day surgery (SDC) | payer BC, SELFPAY ==
[2021-06-25] VITALS (13 sets, daily range): BP systolic 127–167; BP diastolic 79–109; PULSE 76–89; RESP 12–18; TEMP 36.1–36.8; O2SAT 92–99; BMI 37.2
--- NOTE | 2021-06-25 07:35 | P.PN_ITS ---
[facility] Anesthesia Checklist - Patient Identification Patient Identification: Arm Band - Structural Data Admitted From: Home Planned Operative Procedure/s: Lap. ventral hernia repair Consent for Planned Operative Procedure(s) Verified: Yes - NPO Status Verified Time NPO: 05:00 (Sip of black coffee) - Additional verifications Anesthesia Reactions: No Hx Blood Transfusions: No Blood Transfusion Reaction: No - Airway Assessment C-Spine Mobility Assessed: Yes TMJ Mobility Assessed: Yes Dentition: Good Dentition - Neurological Assessment Level of Consciousness: Awake Hx Seizures: No Numbness or tingling in extremities: Yes - Anesthesia Plan Anesthesia Risk discussed: Yes Anesthesia Plan: Verified ASA Class: II Anesthesia Type: General [facility] History I have reviewed the patient's past medical history: Yes Medical History: Reports:: Hyperlipidemia, Hypertension Denies:: Cancer, Diabetes Mellitus Type 1, Diabetes Mellitus Type 2, Internal Pacemaker, Lung Disease, MRSA, Seizures *Have you ever received a pneumonia vaccine?: No *Have you received a flu vaccine this season?: Yes Other Medical History: Denies: Blood Transfusion Reaction Anesthesia experience/problems:: None Laterality Cases: Bilateral: Arthroscopy Knee Other Surgeries: Yes: No Previous Surgery, Colonoscopy, Other. No: Pacemaker Amputation: No Fractures: Yes (Left leg sx) - *Social History Smoking Status: Former smoker Tobacco Type: cigarettes Alcohol Intake: never Alcohol Intake Frequency:: 3 or more drinks per day Substance Use Type: denies use *Occupational Status:: employed Housing: house Household Members: spouse *Travel in the last 8 weeks: None Family Hx:: No significant family history
--- NOTE | 2021-06-25 08:45 | P.OP_ITS ---
Date of procedure: 06/25/21 Pre-op Diagnosis:: Umbilical/ventral hernia Post-op Diagnosis:: Same Procedure performed:: Laparoscopic repair of umbilical/ventral hernia with 11.4 cm circular [employer] Mesh Surgeon:: Rafael Isaacs MD BULB ASSEMBLER:: Jass Camacho Anesthesia: GETA Estimated blood loss (mL): 5 Clinical Note:: Patient is a 61-year-old male from [facility] referred by Dr. Arteaga for umbilical hernia. He states that he has had a small hernia above his umbilical area for several years. However, it has increased in size. He has some discomfort. 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 He states he has to reduce the area. He was found to have a normal-appearing umbilical area. However, above this there is a bulge. I was able to reduce this. There is a defect likely at least 2 or 3 cm. I spent some time on the patient discussed the nature and details. He would like to pursue repair. Given the nature of the hernia I felt that laparoscopic repair would be the best option. Operative findings:: Patient actually had 2 hernias immediately above the umbilical area. There was herniated omentum. Operative note:: Patient was taken to the operating room. He was positioned supine position. General anesthesia was induced via endotracheal tube. Araujo Catheter was placed. Abdomen was prepped and draped in the standard surgical fashion. 5 mm left subcostal incision was made. 5 mm optical trocar was inserted into the abdomen. CO2 pneumoperitoneum was achieved to 15 mmHg. Intraperitoneal contents were visualized. There was noted to be hernia above the umbilicus with herniated omentum. Additional 5 mm trocar was inserted into the left lateral abdomen and ultimately a 12 mm trocar was inserted quadrant. With traction the herniated omentum was easily reduced. There was noted to be 2 hernias at this location adjacent to 1 another by a couple centimeters of normal fascia. Each hernia measured about 2 cm. The falciform ligament was taken down using COLTON ultrasonic harmonic to allow appropriate mesh placement. Spinal needle was used to identify the fascial edges and the skin was marked with a skin marker. To allow good fascial overlap it was determined that approximately 10 to 11 cm circular mesh would be required. 11.4 cm circular [employer] me sh was brought onto the field. It was inserted into the intraperitoneal cavity. Through a tiny 1 to 2 mm incision centrally over the hernias the tubing for the balloon positioning system was brought through the anterior abdominal wall. Blood was inflated. Mesh was oriented intracorporeally to cover the defect. Mesh was secured with several OPTi fix anchors. The balloon positioning system was then removed. Mesh was then secured around its periphery with multiple occupants anchors and more centrally to help eliminate space above the mesh. Repair appeared adequate with excellent fascial overlap. There was good hemostasis. Fascia at the 12 mm site in the right upper abdomen was closed laparoscopically with the laparoscopic Endo anchor device. Trochars were removed as CO2 pneumoperitoneum was evacuated. Local anesthetic was infiltrated. Skin incisions closed with 4-0 Monocryl in subcuticular fashion. Steri-Strips and dressings were applied. Condition: stable Disposition: PACU Complications:: None immediate
--- NOTE | 2021-06-25 08:55 | P.PN_ITS ---
[facility] Anesthesia Record Part I Intake, IV Amount: 1,500 Estimated blood loss (mL): 0 Urine output (mL): 250 Blood Pressure: 157/106 SaO2: 92 Pulse Rate: 88 Respiratory Rate: 12 Temperature: 97.9 F Patient is:: Awake, Stable Stable to PACU at:: 08:50
[2021-06-25 09:01] LABS: Microscopic,Cath URINE MICROSCOPIC (MICROSCOPIC)
[2021-06-25 09:16] LABS: Appearance,Urine/Cath CLEAR (Clear); Bilirubin,Cath Negative (Negative); Blood, Urine/Cath Negative (Negative); Color,Urine/Cath YELLOW (Yellow); Glucose,Urine/Cath (UA) Negative (Negative); Ketones,Urine/Cath Negative (Negative); Leukocyte Esterase,Cath Negative (Negative); Nitrate,Cath Negative (Negative); Protein,Urine/Cath Negative (Negative); Specific Gravity, Urine/Cath >= 1.030 (1.005-1.030); Urobilinogen,Cath 0.2 EU/dl (0.2)
[2021-06-25 09:28] LABS: RBC,Urine/Cath Occasional # /hpf (0-3)
[2021-06-25 09:29] LABS: Squamous Epithelial Ur./Cath Occasional #/hpf (0-5)
--- NOTE | 2021-06-25 10:41 | HMH.ANESII ---
[facility] Anesthesia Record Part II Discharge Time: 09:40 Destination: Surgical Day Care (OP Surgery) PACU nurse assessment reviewed?: Yes Patient Condition:: Good Anesthesia Complications:: None Swallowing reflex intact?: Yes Cyanosis?: No Blood Pressure: 128/79 Pulse Rate: 78 Temperature: 98.2 F Mental Status: Alert & Oriented Pain level:: 0 Nausea and/or vomitting:: None Intake, IV Amount: 0
== END 2021-06-25 11:14 | disposition home or self-care (01) ==
LOC: OR 06:50
PROVIDERS: PCP Family Medicine; Visit Provider Surgery
PROC: 0WQF4ZZ Repair Abdominal Wall, Percutaneous Endoscopic Approach (ICD-10-PCS; CPT 49652; principal; 2021-06-25 08:30)
DX: K43.9 Ventral hernia without obstruction or gangrene (principal); I10 Essential (primary) hypertension; E78.5 Hyperlipidemia, unspecified; Z87.891 Personal history of nicotine dependence; Z79.899 Other long term (current) drug therapy
CPT/HCPCS: 49652; 81001; 96374; C1781; J2405; J2710

== ENCOUNTER 2022-05-10 09:19 | Emergency (ER) | payer BC, SELFPAY ==
[2022-05-10 09:50] VITALS: BP 151/86; PULSE 87; RESP 17; TEMP 36.8; O2SAT 97; BMI 36.5
--- NOTE | 2022-05-10 10:17 | HMH.EDUTC ---
[facility] [place] Clinical Impression: Upper respiratory infection, viral Disposition: Home, Self-Care Condition on Discharge: Good Instructions: DI for Viral Upper Respiratory Infection -- Adult Additional Instructions: covid swab was sent to lab, call tomorrow for results. self isolate until test results are known to be negative No sign of a bacterial infection. Likely viral. Viruses can take 7-14 days to run their course. Nasal saline and bulb syringe or nose Mable to remove nasal drainage to help with nasal congestion. Hard to eat, drink, sleep with nasal congestion so important to keep this cleaned out. Monitor temp. Tylenol or Motrin as needed for pain or fever Encourage fluids, water, Gatorade, Powerade, Pedialyte if /toddler/child Warm salt water gargles Warm fluids Sore throat lozenges Sleep elevated Humidifier/vaporizer Follow-up immediately for new or worsening symptoms or no noticeable improvement over the next 48-72 hours. Referrals: Piero Arteaga MD [Primary Care Provider] - Forms: Work/School Release Time of Disposition: 10:22 Medical Decision Making - Coleman Inquiry Pt receiving controlled substance: No Vital Signs: 05/10/22 09:50 Temperature 98.3 F Temperature Source Oral Pulse Rate [Right Brachial] 87 Respiratory Rate 17 Blood Pressure [Right Arm] 151/86 H Blood Pressure Mean [Right Arm] 107 Blood Pressure Source [Right Arm] Automatic Cuff Blood Pressure Position [Right Arm] Sitting 02 Sat by Pulse Oximetry 97 Oxygen Delivery Method Room Air Orders (Tests/Meds): ORDERS Category Date Time Status Covid-19 Nasal PCR ([facility]) Routine Lab 05/10/22 09:44 Received [facility] HPI - General Chief complaint: Urgent [facility] Stated complaint: cough,runny nose,body aches Time Seen by Provider: 05/10/22 10:17 Mode of Arrival: Ambulatory Source of Information: Patient Limitations: No Limitations Description of Symptoms (Recalled from Triage Doc. by RN): PATIENT C/O COUGH, BODY ACHES, FATIGUE, AND SNEEZING SINCE YESTERDAY HEENT Symptoms (Recalled from RN notes): No Resp Symptoms (Recalled from RN notes): Yes Skin Symptoms (Recalled from RN notes): No MS Symptoms (Recalled from RN notes): No Functional Status (Recalled from RN notes): WNL - History of Present Illness Provider Complaint: 61 yr old male presents for body aches,sneezing, non productive cough and congestion since yesterday - Related Data Home Medications Medication Instructions Recorded Confirmed losartan 50 mg tablet 50 mg PO DAILY 06/10/21 07/22/21 Gabapentin [Neurontin 300mg 300 mg PO QID 06/20/21 07/22/21 capsule] Tramadol HCl [Tramadol 50mg 50 mg PO TID 06/20/21 07/22/21 Tab] Previous Rx's Medication Instructions Recorded meloxicam 15 mg tablet 15 mg PO DAILY PRN #30 tab 11/30/20 Allergies Allergy/AdvReac Type Severity Reaction Status Date / Time No Known Allergies Allergy Verified 07/22/21 09:33 - Worker's Comp Is this a Worker's Comp case?: No [facility] History - Hepatitis A Screen Attestation statement:: This patient has been screened for Hepatitis A risk factors. I have reviewed the patient's past medical history: Yes Medical History: Reports:: Hyperlipidemia, Hypertension Denies:: Cancer, Diabetes Mellitus Type 1, Diabetes Mellitus Type 2, Internal Pacemaker, Lung Disease, MRSA, Seizures Other Medical History: Denies: Blood Transfusion Reaction Comment: morbid obesity, chronic back pain Laterality Cases: Bilateral: Arthroscopy Knee Other Surgeries: Yes: No Previous Surgery, Colonoscopy, Hernia Repair, Other. No: Pacemaker Amputation: No Fractures: Yes (Left leg sx) - Social History Smoking Status: Former smoker Tobacco Type: cigarettes Alcohol Intake: former Alcohol Intake Frequency:: 3 or more drinks per day Substance Use Type: denies use Occupational Status: employed Housing: house Household Members: none Family Hx:: No significant family history
[2022-05-10 10:24] VITALS: BP 151/86; PULSE 87; RESP 17; TEMP 36.8; O2SAT 97
== END 2022-05-10 10:27 | disposition home or self-care (01) ==
PROVIDERS: Emergency Provider Nurse Practitioner Family; PCP Family Medicine
DX: U07.1 COVID-19 (principal)
CPT/HCPCS: 99212; C9803; G0463; U0003; U0005

== ENCOUNTER → 2023-03-19 17:01 | Outpatient (CLI) | payer BC, SELFPAY ==
--- NOTE | 2023-03-19 17:28 | ECG_ITS ---
APPROVED REPORT Exam: Resting ECG HR:94 bpm ECG Measurements Heart Rate 94 AXES VT 174 P 50 QRSd 97 QRS 31 QT 336 T 69 QTc 388 Conclusion SINUS RHYTHM NORMAL ECG UNCONFIRMED REPORT Electronically signed by : Erasmo Barnett MD 03/19/2023 20:59:23
[2023-03-19 17:30] LABS: Basophils % 0.4 % (0.1-2.0); Eosinophils # 0.1 K/mm3 (0.0-0.4); Eosinophils % 1.3 % (0.1-12.0); Hematocrit 47.9 % (42.0-52.0); Hemoglobin 15.7 g/dL (14.1-18.0); Lymphocytes # 1.5 K/mm3 (0.7-4.5); Lymphocytes % 21.8 % (10-50); Mean Corpuscular HGB Conc 32.7 g/dL (31.8-35.4); Mean Corpuscular Hemoglobin 28.9 pg (27.0-31.2); Mean Corpuscular Volume 88.3 fl (80-94); Mean Platelet Volume 7.2 fl (7.4-10.4); Monocytes # 0.4 K/mm3 (0.1-1.0); Monocytes % 5.9 % (1.7-9.3); Neutrophils # 4.9 K/mm3 (1.8-7.8); Neutrophils % 70.5 % (37.0-80.0); Platelet Count 346 K/mm3 (142-424); Red Blood Count 5.42 M/mm3 (4.60-6.20); Red Cell Distribution Width 13.6 % (11.5-17.5)
[2023-03-19 17:46] LABS: Chloride 101 mmol/L (98-107); Sodium 138 mmol/L (136-145)
[2023-03-19 17:48] LABS: Alanine Aminotransferase 25 U/L (12-78); Alkaline Phosphatase 57 U/L (38-126); Aspartate Amino Transferase 32 U/L (17-59); Bilirubin,Total 0.6 mg/dl (0.2-1.3); Blood Urea Nitrogen 16 mg/dl (9-20); Estimated Glomerular Filt Rate 85 ml/min (>60); GFR (African American) 103 ML/MIN (>60)
[2023-03-19 17:49] LABS: Albumin Level 4.6 g/dl (3.5-5.0); Albumin/Globulin Ratio 1.4 (1.1-1.8); Calcium 9.6 mg/dl (8.4-10.2); Carbon Dioxide 26 mmol/L (22.0-30.0); Chol/HDL Ratio 6.3 (1-3.5); Cholesterol 266 mg/dl (140-200); Creatine Kinase 68 U/L (55-170); Globulin 3.3 g/dL (1.3-3.2); Glucose 92 mg/dl (74-100); HDL Cholesterol 42 mg/dl (40-60); Total Protein,Serum 7.9 g/dl (6.3-8.2); Triglycerides 128 mg/dl (30-150); VLDL Cholesterol 26 mg/dL (0-40)
[2023-03-19 18:00] LABS: CKMB Relative Index 1.2 U/L (0-4.0); Creatine Kinase MB 0.8 ng/ml (0.0-2.03); Direct LDL Cholesterol 152.33 mg/dL (100-129)
[2023-03-19 18:04] LABS: Troponin I < 0.01 ng/ml (0.00-0.034)
[2023-03-19 18:22] LABS: Thyroid Stimulating Hormone 2.39 uIU/mL (0.465-4.68)
[2023-03-19 18:54] LABS: Vitamin B12 698 pg/mL (239-931)
== END ==
PROVIDERS: PCP Family Medicine; Visit Provider Physician Assistant
DX: R07.9 Chest pain, unspecified (principal); R42 Dizziness and giddiness; Z13.220 Encounter for screening for lipoid disorders; Z79.899 Other long term (current) drug therapy
CPT/HCPCS: 36415; 80053; 80061; 82550; 82553; 82607; 84443; 84484; 85025; 93005

== ENCOUNTER → 2023-03-27 11:06 | Outpatient (CLI) | payer BC, SELFPAY ==
--- NOTE | 2023-03-27 | CA_ITS ---
FINAL REPORT CLINICAL HISTORY: dizziness, HTN, HLD, ex smoker FINDINGS: RIGHT CAROTID: CCA PSV -109.1 cm/sec ICA PSV 88.9 cm/sec ICA/CCA PSV ratio 1.46 -1.88 . Comments: Mild plaque disease is noted. LEFTCAROTID: CCA PSV 125.3 . cm/sec ICA PSV 93.2 . cm/sec ICA/CCA PSV ratio 0.94 - 1.1 . Comments: Mild plaque disease is noted. Antegrade flow is seen within the vertebral arteries. IMPRESSION: No evidence of hemodynamically significant stenosis. Reviewed, Interpreted and Dictated by Adrian Stanley MD Transcribed by Rossy Vo Authenticated and [facility]
--- NOTE | 2023-03-27 | CA_ITS ---
APPROVED REPORT Exam: Pharmacologic Technologist: Alejandra Park, Ht: 5 ft 8 in Wt: 255 lbs BSA: 2.27 m2 HR: 77 bpm BP: 127/89 mmHg Rhythm: NSR Medical History Medical History: HTN, Hyperlipidemia Medications: Gabapentin,,,,, Losartan,,,,, Tramadol,,,,, MeLOXICAM,,,,, Allergies: No known drug allergies Cardiac Risk Factors: HTN, Hyperlipidemia, Smoking Stress Test Details Test: LEXISCAN HR Resting HR: 78 bpm Max Heart Rate (APMHR): 157 bpm Max HR Achieved: 105 bpm Target HR (85% APMHR): 133 bpm % of APMHR: 67 Recovery HR: 77 bpm BP Resting BP: 127/89 mmHg Max BP: 132/77 mmHg Recovery BP: 124.0/87.0 mmHg ECG Resting ECG: NSR Stress ECG: No change Arrhythmia: None Recovery ECG: No change Recovery Arrhythmia: None Clinical Exercise duration: 04:01 min Highest Stage Achieved: Stress ECG Conclusion PT HAD SOA, MILD STOMACH DISCOMFORT NO CP NO SIGNIFICANT ST CHANGES UNREMARKABLE LEXISCAN STRESS MYOVIEW IMAGES REPORTED SEPARATELY Test Summary REST 06:27 . . 78 . 127/ 89 . . Stage 1 01:00 . . 100 . . . . Stage 2 01:00 . . 102 . 124/ 83 . . Stage 3 01:00 . . 102 . 128/ 80 . . Stage 4 01:00 . . 95 . 132/ 77 . . Stage 4 01:01 . . 95 . 132/ 77 . Stop exercise at 04:01 RECOVERY 01:00 . . 98 . . . . RECOVERY 02:00 . . 97 . 123/ 78 . . RECOVERY 03:00 . . 92 . 124/ 87 . . RECOVERY 03:15 . . 91 . 124/ 87 . . Electronically signed by : Mónica Cruz, 03/30/2023 01:25:11
--- NOTE | 2023-03-27 11:11 | NM_ITS ---
APPROVED REPORT Exam: Nuclear Stress Test Indication: OBESITY, HTN, HYPERLIPIDEMIA, C.P., SOB, SYNCOPE, FATIGUE Patient Location: Outpatient Stress Tech: Alejandra Park MO Tech:Jordaan Ramirez BRIANAEbenezer RT (R)(N)(M) Ht: 5 ft 8 in Wt: 255 lbs HR: 77 bpm BP: 127/89 mmHg BSA: 2.27 m2 TID: 1.26 BMI: 38.7 History: OBESITY, HTN, HYPERLIPIDEMIA, C.P., SOB, SYNCOPE, FATIGUE Procedure: Patient received 0.4 mg of intravenous Lexiscan, resting heart rate 77 bpm, resting blood pressure 127/89 mmHg, with AdenosineLexiscan maximum heart rate achieved was 100 bpm which is % of the maximum predicted heart rate and blood pressure was 124/83 mmHg. With Lexiscan, patient denied any complaint of chest pain. Cardiac Stress and Resting SPECT Images: Cardiac Stress and Resting SPECT images were obtained using technetium 99m Myoview 31.3 mCi stress and 10.33 mCi at rest. Resting and stress imaging in both prone and supine positions demonstrate a small sized, mild, fixed perfusion defect in the basal inferior LV wall. There is increased transient ischemic dilatation ratio (TID 1.26), which may be suggestive of possible balanced ischemia or multivessel disease. Gated imaging demonstrates normal global and regional LV systolic function. LVEF is calculated at 58%. Conclusion: Small sized, mild, fixed perfusion defect in the basal inferior LV wall. No evidence of reversible ischemia. There is increased transient ischemic dilatation ratio (TID 1.26), which may be suggestive of possible balanced ischemia or multivessel disease. Gated imaging demonstrates normal global and regional LV systolic function. LVEF is calculated at 58%. Electronically signed by : Mónica Cruz, 03/30/2023 01:30:58
== END ==
LOC: RAD 11:06
PROVIDERS: PCP Family Medicine; Visit Provider Physician Assistant
DX: R07.9 Chest pain, unspecified (principal); R42 Dizziness and giddiness
CPT/HCPCS: 78452; 93017; 93880; A9502; J2785

== ENCOUNTER 2023-04-15 08:34 | Day surgery (SDC) | payer BC, SELFPAY ==
[2023-04-15] VITALS (10 sets, daily range): BP systolic 88–126; BP diastolic 51–81; PULSE 57–65; RESP 16–20; O2SAT 95–100; BMI 40.4
--- NOTE | 2023-04-15 07:12 | IR_ITS ---
APPROVED REPORT Patient Location: Outpatient PROCEDURES Left heart catheterization Left ventriculogram Selective coronary angiogram INDICATION High risk abnormal Myoview, Angina pectoris Informed consent was obtained prior to the procedure. COMPLICATIONS None Estimated Blood Loss: Less than 10 mls TECHNIQUE One percent lidocaine used to anesthetize the right anterior aspect of the wrist. The right radial artery was accessed via the Seldinger technique. A 6 Sami sheath was placed in the right radial artery. 150 mg magnesium sulfate, 800 mcg of nitroglycerin, 1mg Lidocaine and 5000 U Heparin were given through the arterial sheath. The papa catheter was also used to perform left heart catheterization, left ventriculogram and selective coronary angiogram. At the end of the procedure the sheath was removed good hemostasis was achieved using Traclet band, patient was transferred to the postop holding area in stable condition. ANGIOGRAPHIC RESULTS The left main artery Normal The left anterior descending artery Has proximal and mid vessel diffuse 20 to 30% nonflow limiting stenosis The circumflex artery Nondominant yet still large with diffuse 20 and 30% stenoses The right coronary artery Is a dominant vessel has a proximal concentric 30% stenosis distal 20 to 30% stenoses and a concentric 80% stenosis and a 2.75 mm mid posterior descending artery The JACOBSEN ventriculogram reveals Slightly hyperdynamic at 70 to 75% The left ventricular end-diastolic pressure Severely elevated at 40 mmHg IMPRESSION Severe single-vessel coronary disease in the distal dominant right coronary as described above which is unlikely to be contributing to patient's symptoms Severely elevated LVEDP consistent with advanced diastolic dysfunction Slightly hyperdynamic ventricular function PLAN 1. At this point I favor treating the diastolic dysfunction. Lasix 40 daily combined with Aldactone 50 mg daily will be started 2. If patient does not have significant relief with diuretics recommend cardiac MRI to evaluate for restrictive cardiomyopathy 3. Unless patient experience recalcitrant angina I would recommend treating the posterior descending artery medically at this time 4. LDL less than 55 to be achieved with high intensity statin 5. Avoidance of tobacco products 6. Cardiac rehabilitation Electronically signed by : Baldev Anderson MD 04/15/2023 13:57:48
[2023-04-15 09:21] LABS: Basophils % 0.3 % (0.1-2.0); Eosinophils # 0.1 K/mm3 (0.0-0.4); Eosinophils % 2.3 % (0.1-12.0); Hematocrit 41.5 % (42.0-52.0); Hemoglobin 13.3 g/dL (14.1-18.0); Lymphocytes # 1.4 K/mm3 (0.7-4.5); Lymphocytes % 25.8 % (10-50); Mean Corpuscular HGB Conc 32.1 g/dL (31.8-35.4); Mean Corpuscular Hemoglobin 29.3 pg (27.0-31.2); Mean Corpuscular Volume 91.2 fl (80-94); Mean Platelet Volume 8.2 fl (7.4-10.4); Monocytes # 0.5 K/mm3 (0.1-1.0); Monocytes % 8.4 % (1.7-9.3); Neutrophils # 3.4 K/mm3 (1.8-7.8); Neutrophils % 63.2 % (37.0-80.0); Platelet Count 304 K/mm3 (142-424); Red Blood Count 4.55 M/mm3 (4.60-6.20); Red Cell Distribution Width 13.9 % (11.5-17.5); White Blood Count 5.4 K/mm3 (4.8-10.8)
[2023-04-15 09:24] LABS: Chloride 104 mmol/L (98-107); Potassium 4.6 mmoL/L (3.5-5.1); Sodium 140 mmol/L (136-145)
[2023-04-15 09:27] LABS: Anion Gap 14.6 mEq/L (5-15); Blood Urea Nitrogen 14 mg/dl (9-20); Calcium 8.8 mg/dl (8.4-10.2); Carbon Dioxide 26 mmol/L (22.0-30.0); Creatinine Clearance Estimated 129 mL/min (50-200); Estimated Glomerular Filt Rate 98 ml/min (>60); GFR (African American) 118 ML/MIN (>60); Glucose 100 mg/dl (74-100)
== END 2023-04-15 14:11 | disposition home or self-care (01) ==
PROVIDERS: PCP Family Medicine; Visit Provider Internal Medicine
DX: R94.30 Abnormal result of cardiovascular function study, unspecified (principal); E78.5 Hyperlipidemia, unspecified; Z87.891 Personal history of nicotine dependence; Z79.899 Other long term (current) drug therapy; I25.10 Atherosclerotic heart disease of native coronary artery without angina pectoris
CPT/HCPCS: 80048; 85025; 93458; 99152; C1725; C1769; J1644; Q9967

== ENCOUNTER → 2023-04-22 09:38 | Outpatient (CLI) | payer BC, SELFPAY ==
[2023-04-22 10:27] LABS: Alanine Aminotransferase 27 U/L (12-78); Albumin Level 4.5 g/dl (3.5-5.0); Alkaline Phosphatase 72 U/L (38-126); Anion Gap 15.7 mEq/L (5-15); Aspartate Amino Transferase 35 U/L (17-59); Bilirubin,Indirect 0.4 mg/dL (0.0-0.9); Bilirubin,Total 0.4 mg/dl (0.2-1.3); Bilirubin,Unconjugated 0.6 mg/dL (0.0-1.1); Blood Urea Nitrogen 23 mg/dl (9-20); Calcium 9.2 mg/dl (8.4-10.2); Carbon Dioxide 23 mmol/L (22.0-30.0); Chloride 104 mmol/L (98-107); Chol/HDL Ratio 3.5 (1-3.5); Cholesterol 159 mg/dl (140-200); Estimated Glomerular Filt Rate 85 ml/min (>60); GFR (African American) 103 ML/MIN (>60); Glucose 116 mg/dl (74-100); HDL Cholesterol 46 mg/dl (40-60); Potassium 4.7 mmoL/L (3.5-5.1); Sodium 138 mmol/L (136-145); Total Protein,Serum 7.3 g/dl (6.3-8.2); Triglycerides 100 mg/dl (30-150); VLDL Cholesterol 20 mg/dL (0-40)
[2023-04-22 10:38] LABS: Direct LDL Cholesterol 88.87 mg/dL (100-129)
== END ==
PROVIDERS: PCP Family Medicine; Visit Provider Physician Assistant
DX: R06.00 Dyspnea, unspecified (principal); R42 Dizziness and giddiness; I20.8 Other forms of angina pectoris; I11.9 Hypertensive heart disease without heart failure; E78.5 Hyperlipidemia, unspecified; R94.30 Abnormal result of cardiovascular function study, unspecified; E66.9 Obesity, unspecified; Z68.39 Body mass index [BMI] 39.0-39.9, adult; Z87.891 Personal history of nicotine dependence
CPT/HCPCS: 36415; 80048; 80061; 80076; 83735

== ENCOUNTER 2023-10-29 14:44 | Outpatient (CLI) | payer OTHER, SELFPAY ==
--- NOTE | 2023-10-29 14:53 | CT_ITS ---
FINAL REPORT TECHNIQUE: Axial CT images of the chest were obtained without contrast. Low-dose protocol was utilized. This study was performed with techniques to keep radiation doses as low as reasonably achievable (ALARA). Individualized dose reduction techniques using automated exposure control or adjustment of mA and/or kV according to the patient's size were employed. CLINICAL HISTORY: ENCOUNTER FOR SCREENING FOR LUNG CANCER FORMER SMOKER, QUIT 5 YRS AGO, SMOKED 1 PK PER DAY X 45 YRS COMPARISON: 04/17/2021 FINDINGS: CT CHEST WITHOUT, LOW DOSE SCREENING CT Di Vol: 2.90 mGy DLP: 112.03 mGy*cm There is no axillary, mediastinal, or hilar adenopathy. The heart size is normal. There are moderate coronary artery calcifications. There is no pleural or pericardial effusion. The lung windows show multiple stable bilateral pulmonary nodules. The largest is a right lower lobe nodule measuring 10 mm seen on image 59. A nodule in the superior segment of the left lower lobe measures 5 mm on image 37 and is also stable. There is mild atelectasis or scar in the lung bases. Limited images of the upper abdomen demonstrate no acute findings. IMPRESSION: Stable bilateral pulmonary nodules. LR Category 1: 12 month follow-up low-dose chest CT is recommended. Reviewed, Interpreted and Dictated by Rafael Luque III, MD Transcribed by Ana Taylor Authenticated and [facility]
== END 2023-10-29 23:59 ==
LOC: RAD 14:47
PROVIDERS: PCP Family Medicine; Visit Provider Family Medicine
DX: Z87.891 Personal history of nicotine dependence (principal); Z12.2 Encounter for screening for malignant neoplasm of respiratory organs
CPT/HCPCS: 71271

== ENCOUNTER 2024-10-07 07:54 | Outpatient (CLI) | payer MEDICARE, OTHER, SELFPAY ==
[2024-10-07 08:47] LABS: Eosinophils % 0.7 % (0.1-12.0); Hematocrit 40.8 % (42.0-52.0); Hemoglobin 13.8 g/dL (14.1-18.0); Lymphocytes % 20.5 % (10-50); Mean Corpuscular HGB Conc 33.8 g/dL (31.8-35.4); Mean Corpuscular Hemoglobin 29.7 pg (27.0-31.2); Mean Corpuscular Volume 87.7 fl (80-94); Mean Platelet Volume 9.4 fl (7.4-10.4); Monocytes % 9.5 % (1.7-9.3); Neutrophils % 68.9 % (37.0-80.0); Platelet Count 323 K/mm3 (142-424); Red Blood Count 4.65 M/mm3 (4.60-6.20); Red Cell Distribution Width 12.2 % (11.5-17.5); White Blood Count 5.6 K/mm3 (4.8-10.8)
[2024-10-07 08:48] LABS: Alanine Aminotransferase 21 U/L (12-78); Albumin Level 4.2 g/dl (3.5-5.0); Alkaline Phosphatase 56 U/L (38-126); Aspartate Amino Transferase 34 U/L (17-59); Basophils % 0.2 % (0.1-2.0); Bilirubin,Indirect 0.8 mg/dL (0.0-0.9); Bilirubin,Total 0.8 mg/dl (0.2-1.3); Bilirubin,Unconjugated 0.9 mg/dL (0.0-1.1); Blood Urea Nitrogen 19 mg/dl (9-20); Calcium 9.5 mg/dl (8.4-10.2); Carbon Dioxide 26 mmol/L (22.0-30.0); Chloride 108 mmol/L (98-107); Chol/HDL Ratio 3.8 (1-3.5); Cholesterol 177 mg/dl (140-200); Estimated Glomerular Filt Rate 113 ml/min (>60); GFR (African American) 137 ML/MIN (>60); Glucose 109 mg/dl (74-100); HDL Cholesterol 47 mg/dl (40-60); Lymphocytes # 1.1 K/mm3 (0.7-4.5); Magnesium 1.9 mg/dl (1.6-2.3); Monocytes # 0.5 K/mm3 (0.1-1.0); Neutrophils # 3.8 K/mm3 (1.8-7.8); Total Protein,Serum 6.8 g/dl (6.3-8.2); Triglycerides 84 mg/dl (30-150); VLDL Cholesterol 17 mg/dL (0-40)
[2024-10-07 08:58] LABS: Direct LDL Cholesterol 108.92 mg/dL (100-129)
[2024-10-07 09:07] LABS: Free T4 (Free Thyroxine) 0.92 ng/dl (0.78-2.19)
[2024-10-07 09:18] LABS: Thyroid Stimulating Hormone 0.88 uIU/mL (0.465-4.68)
[2024-10-07 09:49] LABS: Sodium 151 mmol/L (136-145)
[2024-10-07 10:29] LABS: Anion Gap 21.6 mEq/L (5-15); Potassium 4.6 mmoL/L (3.5-5.1)
== END 2024-10-07 23:59 | disposition home or self-care (01) ==
PROVIDERS: PCP Family Medicine; Visit Provider Physician Assistant
DX: K21.9 Gastro-esophageal reflux disease without esophagitis (principal); R94.30 Abnormal result of cardiovascular function study, unspecified; I25.10 Atherosclerotic heart disease of native coronary artery without angina pectoris; E78.5 Hyperlipidemia, unspecified; Z87.891 Personal history of nicotine dependence; I11.9 Hypertensive heart disease without heart failure; R06.00 Dyspnea, unspecified; Z68.41 Body mass index [BMI] 40.0-44.9, adult; E66.9 Obesity, unspecified
CPT/HCPCS: 36415; 80048; 80061; 80076; 83735; 84439; 84443; 85025

== ENCOUNTER 2024-10-10 07:43 | Outpatient (CLI) | payer MEDICARE, OTHER, SELFPAY ==
[2024-10-10 09:21] LABS: Chloride 107 mmol/L (98-107); Potassium 5.1 mmoL/L (3.5-5.1); Sodium 134 mmol/L (136-145)
[2024-10-10 09:24] LABS: Anion Gap 8.1 mEq/L (5-15); Blood Urea Nitrogen 17 mg/dl (9-20); Calcium 9.6 mg/dl (8.4-10.2); Carbon Dioxide 24 mmol/L (22.0-30.0); Estimated Glomerular Filt Rate 97 ml/min (>60); GFR (African American) 117 ML/MIN (>60); Glucose 110 mg/dl (74-100)
== END 2024-10-10 23:59 | disposition home or self-care (01) ==
LOC: LAB 07:46
PROVIDERS: Physician Assistant; PCP Family Medicine; Visit Provider Internal Medicine
DX: E87.0 Hyperosmolality and hypernatremia (principal)
CPT/HCPCS: 36415; 80048

== ENCOUNTER 2025-06-27 15:14 | Outpatient (CLI) | payer MEDICARE, OTHER, SELFPAY ==
--- OUTSIDE RECORDS SUMMARY | 2024-10-31 12:30 | XMS_ITS ---
Author Organization [facility] Address [address] [id number] Care Team Providers Care Dope Mixer Name Role Phone Piero Arteaga Primary Care Provider Allergies No Known Allergies REASON FOR VISIT spot on head needing looked at Medications Medication SIG (Take, Route, Frequency, Duration) Notes Start Date End Date Status Losartan Potassium 50 MG 1/2 tab(s) oral ly once a day; Duration: 90 days Active Rosuvastatin Calcium 5 MG 1 tab(s) orall y once a day; Duration: 30 day(s) 03/20/2023 Active Bisoprolol Fumarate 5 MG 1 tablet Orally Once a day; Duration: 30 day(s) Active Naproxen Sodium 220 MG 2 Tablets Orally every 12 hrs Active Spironolactone 50 MG 1 tablet Orally Onc e a day; Duration: 30 day(s) Active oxyCODONE HCl 5 MG 1 tablet as needed O rally every 6 hrs Active Aspirin 81 MG 1 tablet Orally Once a day; Duration: 30 day(s) Active Furosemide 40 MG 1 tablet Orally Once a day; Duration: 30 day(s) Active Social History Tobacco Use: Social History Observation Description Date Details (start date - stop date) Former Smoker NA - NA CURRENT TOBACCO USE: Question Answer Notes Are you a: former smoker 1 ppd since age 14 Vital Signs Blood pressure systolic 132 mm Hg 10/31/19 25 Blood pressure diastolic 80 mm Hg 025 Heart Rate 80 /min 10/31/2024 Height 69.50 in 10/31/2024 Weight 281.4 lbs 10/31/2024 BMI 40.96 kg/m2 10/31/2024 Encounters Encounter Location Date Provider Diagnosis [facility] [address] [facility] [address] [facility] [address] [place], [place] [id number] 10/31/2024 Piero Arteaga SK (seborrheic keratosis) L82.1 ; Lumbago with sciatica, left side M54.42 and Other chronic pain G89.29 Assessments Encounter Date Diagnosis (ICD Code) Assessment Notes Treatment Notes Treatment Clinical Notes Section Notes 10/31/2024 SK (seborrheic keratosis) (ICD-10 - L82.1) reassurance provided, Call with any new symptoms 10/31/2024 Lumbago with sciatica, left side (ICD-10 - M54.42) OK to renew FMLA for 2024 [address] for 202310/31/2024 Other chronic pain (ICD-10 - G89.29) Plan Of Treatment Treatment Notes Assessment Notes SK (seborrheic keratosis) reassurance pr ovided, Call with any new symptoms Lumbago with sciatica, left side OK to r enew FMLA for 2024 [address] for 2023 Next Appt Details Follow Up: via phone to repo rt progress, Reason: Provider Name:Piero Nicholson , 12/11/2025 04:00:00 PM, [address] [facility] [address] [facility], [address], [place], [id number], Progress Notes * JASBIR TravDOB:1960 ( 65 yo M)Acc No.[id number]:10/31/2024 Progress Notes Patient: Trav ROJAS Provider: Nemesio Arteaga M.D. :1960 A ge:64 Y S ex:Male Date:10/31/2024 Address:[facility] [address], [id number] Subjective: * Chief Complaints: * 1 . Spot on head needing looked at. * HPI: D ermatology: 64 year old male presents with c/o skin lesion P t complains of spot on top of his head that he noticed a couple days ago. Pt states that lesion has increased in size since he noticed it. Pt is concerned it may be Melanoma. * ROS: C ARDIOLOGY: no D izziness. n o C hest pain. G ASTROENTEROLOGY: no N ausea. n o V omiting. U ROLOGY: no D ifficulty urinating. n o B lood in urine. * Medical History: H ypertension, Back pain, followed by pain management, Lumbar Disc Disease 07/10/17 MRI shows multilevel disc disease with spinal stenosis, Lumbar facet arthropathy, 50 pack year smoking history, quit May 2019, Cervical spine osteoarthritis, Osteoarthritis, s/p bilateral knee repacements in 2019, SHILOH positive, Colon polyps. * Surgical History: K davin 2006, tooth extraction 11/2017, LT Knee Replacement, [facility] 04/10/2020, RT Knee Replacement, [facility] 09/09/2020. * Hospitalization/Major Diagno stic Procedure: E levated - [facility] ER 04/04/2021. * Family History: F ather: alive, CVA. M other: alive, CA, breast and lung. 3 sister(s) - healthy. 2 daughter(s) - healthy. . * Social History: C URRENT TOBACCO USE: No A re you a: f ormer smoker 1 ppd since age 14. C affeine: yes, 12 cups a day. Marital Status: . Past smoking status: previous history. Recreational drug use: no. Alcohol: Yes, occasional. * Medications: T aking Spironolactone 50 MG Tablet 1 tablet Orally Once a day , Taking Furosemide 40 MG Tablet 1 tablet Orally Once a day , Taking Aspirin 81 MG Tablet Delayed Release 1 tablet Orally Once a day , Taking oxyCODONE HCl 5 MG Tablet 1 tablet as needed Orally every 6 hrs , Taking Naproxen Sodium 220 MG Tablet 2 Tablets Orally every 12 hrs , Taking Bisoprolol Fumarate 5 MG Tablet 1 tablet Orally Once a day , Taking Rosuvastatin Calcium 5 MG Tablet 1 tab(s) orally once a day , Taking Losartan Potassium 50 MG Tablet 1/2 tab(s) orally once a day , Medication List reviewed and reconciled with the patient * Allergies: N .K.D.A. Objective: * Vitals: W t:281.4, Temp:98.0, BP:132/80, HR:80, Nurse:luna, Ht: 69.50, BMI:40.96. * Examination: G eneral Examination: General Appearance: N AD. S kin: l eft superior scalp with a 1.2 cm wide flesh colored papule with a waxy, stuck on appearance. Assessment: * Assessment: 1. S K (seborrheic keratosis) - L82.1 (Primary) 2 . L umbago with sciatica, left side - M54.42 3 . O ther chronic pain - G89.29 Plan: * Treatment: 2. L umbago with sciatica, left side Notes: OK to renew FMLA for 2024 as [address] for 2023 * Follow Up: v ia phone to report progress * Images: Billing Information: * Visit Code: 36985 Office Visit, Est Pt., Level 3. * Procedure Codes: * Electronic signature of Nerissa Arteaga MD on 06/27/2025 at 03:17 PM EDT Sign off status: Pending * Provider: Nemesio Arteaga M.D. Date: 0 10/31/2024 Generated for Raghavendra blankenship/José Miguel/Kiritsmitting on: 0 06/27/2025 03:17 PM EDT History and Physical Notes * HPI (History of Present Illness) Category Sub-Category Detail Notes Category Not es Dermatology skin lesion Pt complains of spot on top of his head that he noticed a couple days ago. Pt states that lesion has increased in size since he noticed it. Pt is concerned it may be Melanoma Examination Category Sub-Category Detail Notes Category Not es General Examination General Appearance: NAD Skin: left superior scalp with a 1.2 cm wide flesh colored papule with a waxy, stuck on appearance
--- OUTSIDE RECORDS SUMMARY | 2025-06-09 12:00 | XMS_ITS ---
Author Organization [facility] Address [address] [facility] [address] [id number] Care Team Providers Care Nuclear Physician Name Role Phone Piero Arteaga Primary Care Provider Allergies No Known Allergies REASON FOR VISIT yearly physical Medications Medication SIG (Take, Route, Frequency, Duration) Notes Start Date End Date Status Spironolactone 50 MG 1 tablet Orally Onc e a day; Duration: 30 day(s) Active Rosuvastatin Calcium 5 MG 1 tab(s) orall y once a day; Duration: 90 days 03/20/2023 Active oxyCODONE HCl 5 MG 1 tablet as needed O rally every 6 hrs Active Furosemide 40 MG 1 tablet Orally Once a day; Duration: 30 day(s) Active Aspirin 81 MG 1 tablet Orally Once a day; Duration: 30 day(s) Active Losartan Potassium 50 MG 1/2 tab(s) oral ly once a day; Duration: 90 days Active Bisoprolol Fumarate 5 MG 1 tablet Orally Once a day; Duration: 30 day(s) Active Naproxen Sodium 220 MG 2 Tablets Orally every 12 hrs Active Immunizations Vaccine Route Administration Date Status Comme nts Fluzone High Dose (65yr and older) IM Intramuscular 06/09/2025 Administered Prevnar (PCV20) IM Intramuscular 06/09/2025 Administered Social History Tobacco Use: Social History Observation Description Date Details (start date - stop date) Former Smoker NA - NA CURRENT TOBACCO USE: Question Answer Notes Are you a: former smoker 1 ppd since age 14 Problems Problem Type SNOMED Code ICD Code Onset Dates Problem Status W/U Status Risk Notes Problem Body mass index 40+ - morbidly obese (824500751) BMI 40.0-44.9, adult (Z68.41) Active confirmed Vital Signs Blood pressure systolic 122 mm Hg 06/09/20 25 Blood pressure diastolic 70 mm Hg 025 Heart Rate 85 /min 06/09/2025 Height 69.50 in 06/09/2025 Weight 278.4 lbs 06/09/2025 BMI 40.52 kg/m2 06/09/2025 Encounters Encounter Location Date Provider Diagnosis [facility] [address] [facility] [address] [place], [place] [id number] 06/09/2025 Piero Arteaga Essential hypertensi on I10 ; Hyperlipidemia, unspecified hyperlipidemia type E78.5 ; Prostate cancer screening Z12.5 ; Non morbid obesity E66.9 ; Personal history of nicotine dependence Z87.891 ; Screening for lung cancer Z12.2 ; Encounter for immunization Z23 and BMI 40.0-44.9, adult Z68.41 Assessments Encounter Date Diagnosis (ICD Code) Assessment Notes Treatment Notes Treatment Clinical Notes Section Notes 06/09/2025 Essential hypertension (ICD-10 - I10) 06/09/2025 Hyperlipidemia, unspecified hyperlipidemia type (ICD-10 - E78.5) 06/09/2025 Prostate cancer screening (ICD-10 - Z12.5) 06/09/2025 Non morbid obesity (ICD-10 - E66.9) 06/09/2025 Personal history of nicotine dependence (ICD-10 - Z87.891) 06/09/2025 Screening for lung cancer (ICD-10 - Z12.2) 06/09/2025 Encounter for immunization (ICD-10 - Z23) 06/09/2025 BMI 40.0-44.9, adult (ICD-10 - Z68.41) Plan Of Treatment Medication Medication Name Sig Start Date Stop Date Notes Rosuvastatin Calcium 5 MG 1 tab(s) orall y once a day; Duration: 90 days 03/20/2023 Pending Test Test Name Order Date CT Scan : Chest, low dose 06/09/2025 H-TSH 06/09/2025 H-Microalbumine/Creatinine 06/09/2025 H-Lipid Panel 06/09/2025 H-CMP 06/09/2025 H-PSA 06/09/2025 Next Appt Details Follow Up: 6 Months, Reason: Provider Name:Piero Nicholson ry, 12/11/2025 04:00:00 PM, [address], [address], [place], [place], [id number], Progress Notes * Trav SUDOB:1960 ( 65 yo M)Acc No.[id number]:06/09/2025 Physical Patient: Trav ROJAS Provider: Nemesio Arteaga M.D. :1960 A ge:65 Y S ex:Male Date:06/09/2025 Address:[facility] [address] , [place], [id number] Subjective: * Chief Complaints: * 1 . Yearly physical. * HPI: H PI: 65 year old male presents with c/o Patient is here today for?Pt. here for annual checkup. . C ardiology: c/o Blood Pressure Elevated P t here for check up on hypertension. Pt states he is doing well and does not have any concerns. c/o Hyperlipidemia P t is not fasting today. P sychology: c/o weight loss P t states he wants to see if he can take meds to loss weight. * ROS: D ERMATOLOGY: no R johnny. n o H merrill. G ASTROENTEROLOGY: no N ausea. n o [...] Osteoarthritis, s/p bilateral knee repacements in 2019, HSILOH positive, Colon polyps. * Surgical History: K nee 2007, tooth extraction 11/2017, LT Knee Replacement, [facility] 04/10/2020, RT Knee Replacement, [facility] 09/09/2020. * Hospitalization/Major Diagno stic Procedure: [facility] * Family History: F ather: alive, [...] Allergies: N .K.D.A. Objective: * Vitals: W t: 278.4, Temp: 98.0, BP: 122/70, HR: 85, Nurse: peter, Ht: 69.50, BMI:40.52. * Examination: G eneral Examination: General Appearance: N AD. H eart: R SR. L ungs:?clear to auscultation. Assessment: * Assessment: 1. E ssential hypertension - I10 (Primary) 2 . H yperlipidemia, unspecified hyperlipidemia type - E78.5 3 . P rostate cancer screening - Z12.5 ?4. N on morbid obesity - E66.9 5 . P ersonal history of nicotine dependence - Z87.891 6 . S creening for lung cancer - Z12.2 7 . E ncounter for immunization - Z23 8 . B NV 40.0-44.9, adult - Z68.41 ? Plan: * Treatment: 2. H yperlipidemia, unspecified hyperlipidemia type Refill Rosuvastatin Calcium Tablet, 5 MG, 1 tab(s), orally, once a day, 90 days, 90, Refills 1.? L AB: H-TSH L AB: H-Lipid Panel L AB: H-CMP 3. P rostate cancer screening L AB: H-PSA 4. P ersonal history of nicotine dependence I maging: CT Scan : Chest, low dose 5.?Screening for lung cancer?Imaging: CT Scan : Chest, low dose* Any day after 3:30 Eleanor Roland 06/12/2025 02:31:16 PM EDT > no auth required; CPT code 22116; faxed to [facility] Scheduling * Immunizations: Fluzone High Dose (65yr and older) : 0.5 mL (Route: Intramuscular) given by Dorinda Christopher on Left Deltoid (Encounter for immunization) Prevnar (PCV20) : 0.5 mL (Route: Intramuscular) given by Dorinda Christopher on Right Deltoid (Encounter for immunization) * Procedure Codes: G 2211 Complex e/m visit add on, 1036F TOBACCO NON-USER, 4040F PNEUMOC IMM ORDER/ADMIN, G8950 PREHTN/HTN BP DOC INDCD F/U DOC, G8752 MOST RECENT SYSTOLIC BP < 140MM HG, G8754 MOST RECENT DIASTOLIC BP < 90MM HG, 3017F COLORECTAL CA SCREEN DOC REV * Preventive Medicine: Screening / Special Tests: C olonoscopy 1 10/28/2022, Dr. Kessler, polyps, diverticulosis, hemorrhoids, repeat 7-10 years. * Follow Up: 6 Months * Images: Drawing:[facility] 06/09/25 Billing Information: * Visit Code: 54071 Office Visit, Est Pt., Level 4. * Procedure Codes: G2211 Complex e/m visit add on. 1036F TOBACCO NON-USER. 4040F PNEUMOC IMM ORDER/ADMIN. G8950 PREHTN/HTN BP DOC INDCD F/U DOC. G8752 MOST RECENT SYSTOLIC BP < 140MM HG. G8754 MOST RECENT DIASTOLIC BP < 90MM HG. 3017F COLORECTAL CA SCREEN DOC REV. * Electronic signature of Nerissa Arteaga MD on 06/27/2025 at 03:17 PM EDT Sign off status: Pending * Provider: Nemesio Arteaga M.D. Date: 0 06/09/2025 Generated for Raghavendra blankenship/José Miguel/eTransmitting on: 0 06/27/2025 03:17 PM EDT History and Physical Notes * HPI (History of Present Illness) Category Sub-Category Detail Notes Category Not es Cardiology Blood Pressure Elevated Pt here for check up on hypertension. Pt states he is doing well and does not have any concerns Hyperlipidemia Pt is not fasting to day Psychology weight loss Pt states he wan ts to see if he can take meds to loss weight HPI Patient is here today for Pt. here for an nual checkup. Examination Category Sub-Category Detail Notes Category Not es General Examination Heart: RSR Lungs: clear to auscultatio n General Appearance: NAD
--- NOTE | 2025-06-27 15:16 | CT_ITS ---
FINAL REPORT TECHNIQUE: Thin section axial images were obtained through the lungs using a low-dose technique per lung cancer screening protocol. Reconstruction images were obtained using the axial data. Exam was performed using dose reduction technique. This study was performed with techniques to keep radiation doses as low as reasonably achievable (ALARA). Individualized dose reduction techniques using automated exposure control or adjustment of mA and/or kV according to the patient's size were employed. CLINICAL HISTORY: SCREENING former smoker x 6 years 1 ppd x 45 years COMPARISON: 10/29/2023 FINDINGS: CTDLvol: 2.90 DLP: 113.33 Former smoker 45 pack year history Lungs: No acute pulmonary abnormality. Multiple pulmonary nodules are again noted. There is a subpleural left upper lobe nodule, 4 mm in size, best seen on image #23 of series 4, stable. There is a superior segment of the left lower lobe 6 mm nodule, best seen on image #32 of series 4, stable. There are several additional left sided nodules which appear stable as well. On the right side, there are multiple right lower lobe noncalcified nodules, the largest of which measures 9 mm, best seen on image #54 of series 4, stable. There is a single right middle lobe nodule which is stable as well. There is a nodule in the dependent portion of the trachea, which was not seen on prior examinations. This is best seen on image #32 of series 4. Lymph nodes: No thoracic lymphadenopathy. Mediastinum: Heart size is normal. Note is made of prominent coronary artery calcifications. Pleura/pericardium: No pleural or pericardial effusion. Other: No acute abnormality in the upper abdomen. IMPRESSION: 1. Multiple stable bilateral pulmonary nodules are once again noted. No new focal parenchymal nodules are identified. There is a nodular density in the dependent portion of the trachea, best seen on image #32 of series 4, which was not seen on prior exams. Although this may represent focal secretions, an underlying mass cannot be excluded. Lung RADS: 4AS, the S designation for prominent coronary artery calcifications. Recommendation: 3 months follow-up LDCT Reviewed, Interpreted and Dictated by Dixie Tejada MD Transcribed by Rossy Vo Authenticated and [facility]
--- OUTSIDE RECORDS SUMMARY | 2025-06-27 15:18 | XMS_ITS | Patient Health Record ---
Author Organization [facility] Address [address] [facility] [address] [id number] Care Team Providers Care Director Packaging Name Role Phone Piero Arteaga Primary Care Provider Allergies No Known Allergies Reason For Referral No Information Medications Medication SIG (Take, Route, Frequency, Duration) Notes Start Date End Date Status Spironolactone 50 MG 1 tablet Orally Onc e a day; Duration: 30 day(s) Active Rosuvastatin Calcium 5 MG 1 tab(s) orall y once a day; Duration: 90 days 03/20/2023 Active Losartan Potassium 50 MG 1/2 tab(s) oral ly once a day; Duration: 90 days Active Bisoprolol Fumarate 5 MG 1 tablet Orally Once a day; Duration: 30 day(s) Active oxyCODONE HCl 5 MG 1 tablet as needed O rally every 6 hrs Active Naproxen Sodium 220 MG 2 Tablets Orally every 12 hrs Active Furosemide 40 MG 1 tablet Orally Once a day; Duration: 30 day(s) Active Aspirin 81 MG 1 tablet Orally Once a day; Duration: 30 day(s) Active Immunizations Vaccine Route Administration Date Status Comme nts COVID 19 Pfizer Unknown 09/28/2021 Administered Fluzone High Dose (65yr and older) IM Intramuscular 06/09/2025 Administered Fluzone Intradermal Quad private(18-64yrs) ID Intradermal 07/28/2016 Administered Fluzone PF Quad (6-35 months) Unknown 07/26/2020 Administered Fluzone Quad (6months&older) Unknown 08/23/2015 Administered Fluzone Quad (6months&older) Unknown 09/09/2017 Administered Prevnar (PCV20) IM Intramuscular 06/09/2025 Administered Shingrix Unknown 09/28/2021 Administered Tetanus Tdap-Adacel (over 7yrs) IM Intramuscular 08/18/2014 Administered Social History Tobacco Use: Social History Observation Description Date Details (start date - stop date) Former Smoker NA - NA CURRENT TOBACCO USE: Question Answer Notes Are you a: former smoker 1 ppd since age 14 Problems Problem Type SNOMED Code ICD Code Onset Dates Problem Status W/U Status Risk Notes Problem Hyperlipidemia (28464068) Hyperlipidemia (E78.5) Active confirmed Problem Essential hypertension (56813880) Essential hypertension (I10) Active confirmed Problem Disorder of lumbar disc (089081033) Lumbar disc disease (M51.9) Active confirmed Problem Lumbar spinal stenosis (22377140) Lumbar spinal stenosis (M48.06) Active confirmed Problem Chronic pain (50502142) Other chronic pain (G89.29) Active confirmed Problem Chronic pain syndrome (437658405) Chronic pain syndrome (G89.4) Active confirmed Problem Sciatica (42120377) Lumbago with sciatica, left side (M54.42) Active confirmed Problem Chronic pain (17711852) Other chronic pain (G89.29) Active confirmed Problem Intervertebral disc disorder of cervical region with myelopathy (48628427) Cervical disc disease with myelopathy (M50.00) Active confirmed Problem Cervical disc disease (949591642) Cervical disc disease (M50.90) Active confirmed Problem Erectile dysfunction (disorder) (112437147) Erectile dysfunction, unspecified erectile dysfunction type (N52.9) Active confirmed Problem Body mass index 40+ - morbidly obese (910415201) BMI 40.0-44.9, adult (Z68.41) Active confirmed Problem Hyperlipidaemia (57295808) Hyperlipidemia, unspecified hyperlipidemia type (E78.5) Active confirmed Problem Cervical spondylosis without myelopathy (667325770) Osteoarthritis of spine with radiculopathy, cervical region (M47.22) Active confirmed Problem Tobacco user (697940664) Cigarette nicotine dependence without complication (F17.210) Active confirmed Problem Arthropathy of lumbar facet joint (452307233) Lumbar facet arthropathy (M12.88) Active confirmed Problem Obesity (233204911) Non morbid obesity (E66.9) Active confirmed Problem Cervical spondylosis without myelopathy (058491120) Facet arthritis, degenerative, cervical spine (M47.812) Active confirmed Vital Signs Heart Rate 85 /min 06/09/2025 Blood pressure diastolic 70 mm Hg 06/09/2025 Height 69.50 in 06/09/2025 Blood pressure systolic 122 mm Hg 06/09/2025 Weight 278.4 lbs 06/09/2025 BMI 40.52 kg/m2 06/09/2025 Encounters Encounter Location Date [facility] [place] [id number] 10/31/2024 Piero [place] (seborrheic kerat osis) L82.1 ; Lumbago with sciatica, left side M54.42 and Other chronic pain G89.[address] [place], [place] [id number] 06/09/2025 Piero [place] Essential hypertensi on I10 ; Hyperlipidemia, unspecified hyperlipidemia type E78.5 ; Prostate cancer screening Z12.5 ; Non morbid obesity E66.9 ; Personal history of nicotine dependence Z87.891 ; Screening for lung cancer Z12.2 ; Encounter for immunization Z23 and BMI 40.0-44.9, adult Z68.41 [facility] [place] [id number] 06/05/2025 Pieroosman Arteaga Assessments Encounter Date Diagnosis (ICD Code) Assessment Notes Treatment Notes Treatment Clinical Notes Section Notes 10/31/2024 SK (seborrheic keratosis) (ICD-10 - L82.1) reassurance provided, Call with any new symptoms 10/31/2024 Lumbago with sciatica, left side (ICD-10 - M54.42) OK to renew FMLA for 2024 [address] for 202306/09/2025 Essential hypertension (ICD-10 - I10) 06/09/2025 Hyperlipidemia, unspecified hyperlipidemia type (ICD-10 - E78.5) 06/09/2025 Prostate cancer screening (ICD-10 - Z12.5) 10/31/2024 Other chronic pain (ICD-10 - G89.29) 06/09/2025 Non morbid obesity (ICD-10 - E66.9) 06/09/2025 Personal history of nicotine dependence (ICD-10 - Z87.891) 06/09/2025 Screening for lung cancer (ICD-10 - Z12.2) 06/09/2025 Encounter for immunization (ICD-10 - Z23) 06/09/2025 BMI 40.0-44.9, adult (ICD-10 - Z68.41) Plan Of Treatment Pending Test Test Name Order Date CT Scan : Chest, low dose 06/09/2025 H-TSH 06/09/2025 H-Microalbumine/Creatinine 06/09/2025 H-Lipid Panel 06/09/2025 H-CMP 06/09/2025 H-PSA 06/09/2025 Next Appt Details Provider Name:Piero Nicholson ry, 12/11/2025 04:00:00 PM, [address], [address], [place], [place], [phone], Insurance Providers Payer Name Payer Address Payer Phone Subscriber Number Group Number Insured Name Patient Relationship to Insured Coverage Start Date Coverage End Date MEDICARE PART B [address] [address] [place] [id number] [phone] [id number] Trav Su Self - patient is the insured Medications Administered Medication Instructions Date of Administration Dosage Notes Depo- Medrol 40 mg/ml 07/07/2016 1 mL Dexamethasone 02/13/2020 1 mL Medical (General) History Medical History History ICD Code Hypertension back pain, followed by pain management Lumbar Disc Disease 07/10/17 MRI shows multilevel disc disease with spinal stenosis Lumbar facet arthropathy 50 pack year smoking history, quit 2018 Cervical spine osteoarthritis osteoarthritis, s/p bilateral knee repac ements in 2020 SARA positive Colon polyps Surgical History Surgery Date(Month/Year) Knee 2007 tooth extraction 11/2017 LT Knee Replacement, [facility] 04/10/2020 RT Knee Replacement, [facility] 09/09/2020 Hospitalization History Reason Date(Month/Year) Elevated BP- [facility] ER 04/04/2021
--- OUTSIDE RECORDS SUMMARY | 2025-06-27 15:18 | XMS_ITS | Clinical Summary ---
Author Organization [facility] Address [address] [place] [address] Care Team Providers Care Employment Attorney Name Role Phone Piero Arteaga MD Primary Care Provider [phone] Allergies No known active allergies Medications cyclobenzaprine (FLEXERIL) 10 MG tablet TAKE ONE TABLET BY MOUTH TWICE DAILY MAY CAUSE DROWSINESS 0 Active gabapentin (NEURONTIN) 300 MG capsule TAKE 1 CAPSULE BY MOUTH FOUR TIMES DAILY MAY CAUSE DROWSINESS 0 Active traMADol (ULTRAM) 50 MG tablet TAKE ONE TABLET BY MOUTH FOUR TIMES DAILY MAY CAUSE DROWSINESS 0 Active chlorhexidine (HIBICLENS) 4 % external liquid Shower each day with solution for 5 days beginning 5 days before surgery. 120 mL 0 Active Active Problems Problem Noted Date Diagnosed Date Herniation of cervical inter vertebral disc with radiculopathy 12/21/2019 Overview (12/21/2019): Added automatically from request for surgery [id number] Cervical radiculopathy at C7 11/24/2019 Social History Tobacco Use Types Packs/Day Years Used Date Smoking Tobacco: Former Smokeless Tobacco: Never Alcohol Use Standard Drinks/Week Comments Yes 0 (1 standard drink = 0.6 oz pur e alcohol) Abuse Screen Answer Date Recorded Unsafe at Home or Work/School Not on file Feels Threatened by Someone? Not on file 09/2023 Does Anyone Keep You from Co ntacting Others or Doint Things Outside the Home? Not on file 07/30/2023 Physical Sign of Abuse Present Not on file 1 Housing Stability Answer Date Recorded Current Living Arrangements Not on file 07/19 Potentially Unsafe Housing Conditions Not on lavon e 07/30/2023 Family and Community Support Answer Leoncio e Recorded Help with Day-to-Day Activities Not on file 07/30/2023 Lonely or Isolated Not on file 07/30/2023 Employment Answer Date Recorded Do you want help finding or keeping work or a zhanna b? Not on file 07/30/2023 Disabilities Answer Date Recorded Concentrating, Remembering, or Making Decisions Difficulty Not on file 07/30/2023 Doing Errands Independently Difficulty Not on fi le 07/30/2023 Education Answer Date Recorded Help with school or training? Not on file Preferred Language Not on file 07/30/2023 Sex and Gender Information Value Date Recorded Sex Assigned at Not on file Legal Sex Male 3:56 PM EST Gender Identity Not on file Sexual Orientation Not on file Last Filed Vital Signs Vital Sign Reading Time Taken Comments Blood Pressure - - Pulse - - Temperature 36.6 C (97.9 F) 11/24/2019 10:38 AM EST Respiratory Rate 15 11/24/2019 10:38 AM EST Oxygen Saturation - - Inhaled Oxygen Concentration - - Weight 111 kg (245 lb 12.8 oz) 11/24/2019 10:38 AM EST Height 172.7 cm (5' 8 ) 11/24/2019 10:38 AM EST Body Mass Index 37.37 11/24/2019 10:38 AM EST Plan of Treatment Health Maintenance Due Date Last Done Comments TDAP/TD VACCINES (1 - Tdap) 1978 COLOGUARD 2004 COLON CANCER SCREENING 5 YEAR SIGMOIDOSCOPY 2004 COLONOSCOPY [address] S[address]ING [address] COLONOGRAPHY 2004 FECAL OCCULT BLOOD TEST 2004 FIT Testing (1 year) 2004 Pneumococcal Vaccine 50+ (1 of 1 - PCV) 2009 ZOSTER VACCINE (1 of 2) 2009 ANNUAL PHYSICAL 11/24/2019 HEPATITIS C SCREENING 11/24/2019 AAA SCREEN ONCE 2024 COVID-19 Vaccine ( season) 2025 INFLUENZA VACCINE 07/19/2025 08/18/2017 Insurance [employer] [facility] PPO Care Teams Employment Attorney Relationship Specialty Start Date End Date Piero Arteaga MD [address] [place] [address] [place] [id number] PCP - General Family Medicine 11/16/19
== END 2025-06-27 23:59 | disposition home or self-care (01) ==
LOC: RAD 15:14
PROVIDERS: PCP Family Medicine; Visit Provider Family Medicine
DX: I25.10 Atherosclerotic heart disease of native coronary artery without angina pectoris (principal); R91.8 Other nonspecific abnormal finding of lung field; R93.89 Abnormal findings on diagnostic imaging of other specified body structures; Z12.2 Encounter for screening for malignant neoplasm of respiratory organs; Z87.891 Personal history of nicotine dependence
CPT/HCPCS: 71271

== ENCOUNTER 2025-07-28 14:44 | Outpatient (CLI) | payer MEDICARE, OTHER, SELFPAY ==
[2025-07-28 15:25] LABS: Hematocrit 40.3 % (42.0-52.0); Hemoglobin 14.0 g/dL (14.1-18.0); Immature Granulocytes % 0.3 %; Mean Corpuscular HGB Conc 34.7 g/dL (31.8-35.4); Mean Corpuscular Hemoglobin 30.1 pg (27.0-31.2); Mean Corpuscular Volume 86.7 fl (80-94); Nucleated Red Blood Cells % 0 %; Platelet Count 371 K/mm3 (142-424); Red Blood Count 4.65 M/mm3 (4.60-6.20); Red Cell Distribution Width-SD 39.3 fL; White Blood Count 7.3 K/mm3 (4.8-10.8)
[2025-07-28 15:48] LABS: Alanine Aminotransferase 25 U/L (12-78); Albumin Level 4.7 g/dl (3.5-5.0); Alkaline Phosphatase 76 U/L (38-126); Anion Gap 18.5 mEq/L (5-15); Aspartate Amino Transferase 34 U/L (17-59); Bilirubin,Direct 0.3 mg/dl (0.0-0.4); Bilirubin,Indirect 0.6 mg/dL (0.0-0.9); Bilirubin,Total 0.9 mg/dl (0.2-1.3); Bilirubin,Unconjugated 0.5 mg/dL (0.0-1.1); Blood Urea Nitrogen 18 mg/dl (9-20); Calcium 10.0 mg/dl (8.4-10.2); Carbon Dioxide 24 mmol/L (22.0-30.0); Chloride 98 mmol/L (98-107); Cholesterol 205 mg/dl (140-200); Creatinine,Serum 0.80 mg/dl (0.66-1.25); Estimated Glomerular Filt Rate 97 ml/min (>60); GFR (African American) 117 ML/MIN (>60); Glucose 97 mg/dl (74-100); HDL Cholesterol 50 mg/dl (40-60); Magnesium 1.9 mg/dl (1.6-2.3); Potassium 4.5 mmoL/L (3.5-5.1); Sodium 136 mmol/L (136-145); Total Protein,Serum 7.5 g/dl (6.3-8.2); Triglycerides 98 mg/dl (30-150)
[2025-07-28 16:04] LABS: Free T4 (Free Thyroxine) 1.27 ng/dl (0.78-2.19)
[2025-07-28 16:18] LABS: Thyroid Stimulating Hormone 1.61 uIU/mL (0.465-4.68)
== END 2025-07-28 23:59 | disposition home or self-care (01) ==
LOC: LAB 14:45
PROVIDERS: PCP Family Medicine; Visit Provider Nurse Practitioner Family
DX: I25.10 Atherosclerotic heart disease of native coronary artery without angina pectoris (principal); E78.5 Hyperlipidemia, unspecified
CPT/HCPCS: 36415; 80048; 80061; 80076; 83735; 84439; 84443; 85025

== ENCOUNTER 2025-09-25 15:15 | Outpatient (CLI) | payer MEDICARE, OTHER, SELFPAY ==
--- NOTE | 2025-09-25 15:17 | CT_ITS ---
FINAL REPORT TECHNIQUE: Thin section axial images were obtained from the lung apices to the upper abdomen by computed tomography. Reformatted images were obtained and reviewed. This study was performed with techniques to keep radiation doses al low as reasonably achievable (ALARA). Individualized dose reduction techniques using automated exposure control or adjustment of mA and/or kV according to the patient's size were employed. CLINICAL HISTORY: .patient is a former smoker. he quit smoking 6 years ago. when he smoked, he smoked 1 pack per day and he was as smoker for 45 years. 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 COMPARISON: 06/27/2025 FINDINGS: CHEST CT LOW DOSE 59-year-old male, former smoker who quit 6 years ago, 82-pylj-ensq history. CTDI vol (mGy): 2.90 DLP (mGy-cm): 100.81 There is no axillary adenopathy. There is no mediastinal or hilar mass or adenopathy. The heart is normal in size. There is no pericardial or pleural effusion. There is mild emphysema and mild pulmonary scarring. Lung window images demonstrate multiple nodules. There is a 5 mm subpleural node in the right upper lobe best seen on image #104 of series 2, stable. There is a 6 mm nodule in the superior segment of the left lower lobe which measures 6 mm and is also stable. A 10 mm right lower lobe dominant nodule is best seen on image #115 of series 2, stable. There is no change in size or appearance of these nodules allowing for differences in slice selection. The tracheal nodule seen on the prior exam of 06/27/2025 is no longer visualized. Limited images of the upper abdomen are unremarkable. IMPRESSION: Lung-RADS category 2. Recommend 12 month follow up low dose chest CT. Reviewed, Interpreted and Dictated by Mike Ahn MD Transcribed by Rossy Vo Authenticated and . [facility]
== END 2025-09-25 23:59 | disposition home or self-care (01) ==
LOC: RAD 15:16
PROVIDERS: PCP Family Medicine; Visit Provider Family Medicine
DX: Z12.2 Encounter for screening for malignant neoplasm of respiratory organs (principal); Z87.891 Personal history of nicotine dependence; R91.8 Other nonspecific abnormal finding of lung field; Z57.5 Occupational exposure to toxic agents in other industries
CPT/HCPCS: 71271